=== PATIENT | male | born 1940 | race Caucasian/White ===

== ENCOUNTER 2016-12-19 13:29 | Outpatient (RCR) | payer MEDICARE ==
--- OUTSIDE RECORDS SUMMARY | 2016-09-22 11:02 | XMS REPORT | Continuity of Care Document ---
Author Author [facility] Organization [facility] Address Unknown Phone Unavailable Care Team Providers Care Energy Control Officer Name Role Phone EAN DUNN DO PCP Insurance Providers Payer Name Policy Number Subscriber Name Relationship [employer] Medicare [id number] Justino Jordan 20 Self / Same As Patient [employer] Supp [id number] Justino Jordan Self / Same As Patient Advance Directives Directive Response Recorded Date/Time Advance Directives Yes 01/16/15 10:30am Health Care Power of Warehouse Trainer Rom CROSS 01/16/15 10:30am Organ Donor Yes 01/16/15 10:30am Resuscitation Status Full Code 01/16/15 10:30am Problems Medical Problems Problem Onset Date Status Acute torn meniscus of knee Unknown Active Medications Medication Dose Route Sig Days/Qty Instructions Order Date Discontinued Date Status Sotalol Hcl 80 Mg PO TWICE A DAY 01/02/15 Active Potassium Chloride 10 Meq PO DAILY 01/02/15 Active Carvedilol 12.5 Mg PO TWICE A DAY TAKE 1/2 OF (25MG) TAB 01/02/15 Active Vit#96/Ferrous Fum/Fa 1 Each PO DAILY 01/02/15 Active Furosemide 80 Mg PO DAILY 01/02/15 Active Spironolactone 25 Mg PO DAILY 01/02/15 Active Enalapril Maleate 5 Mg PO DAILY 01/02/15 Active Polyethylene Glycol 1 Tbs PO DAILY 01/02/15 Active Budesonide/Formoterol Fumarate 2 Puff IH TWICE A DAY 01/02/15 Active Fish Oil/Dha/Epa 1,200 Mg PO DAILY 01/02/15 Active [Roman Med Sinus Rinse] 1 Spr NSEACH TWICE A DAY 01/02/15 Active Desonide 1 Gm TP TWICE A DAY 01/02/15 Active Saliva Stimulant Agents Comb.2 0.5 Inch MM FOUR TIMES DAILY PRN DRY MOUTH PRN DRY MOUTH 01/02/15 Active Timolol Maleate 1 Drop OS TWICE A DAY 01/02/15 Active Dabigatran Etexilate Mesylate 150 Mg PO TWICE A DAY 01/02/15 Active Aspirin 81 Mg PO BEDTIME 01/02/15 Active Simvastatin 40 Mg PO BEDTIME 01/02/15 Active Terazosin HCl 1 Mg PO BEDTIME 01/02/15 Active Nortriptyline Hcl 150 Mg PO BEDTIME TAKE 2 (75MG) TABS 01/02/15 Active Sildenafil Citrate 50 Mg PO EVERY OTHER NIGHT 01/02/15 Active Docusate Sodium 100 Mg PO BEDTIME 01/02/15 Active Albuterol Sulfate 0.63 Mg IH EVERY 4HRS PRN SHORTNESS OF BREATH PRN SOB 01/02/15 Active [Insulin Pump] Unit SC DIRECTED 3 AM 2.3 01/02/15 Active Hydrocodone/Acetaminophen 1 Tab PO Q4-6 PRN PAIN 40 Qty 01/16/15 Active Social History Social History Problem Response Recorded Date/Time Alcohol Use Denies Use 01/16/2015 10:30am Recreational Drug Use No 01/16/2015 10:30am Recent Foreign Travel No 01/16/2015 10:30am Smoking Status Former Smoker 01/16/2015 10:30am Do you dip or chew tobacco? No 01/16/2015 10:30am Query Response Start Date Stop Date Smoking Status Former Smoker 08/03/1975 Hospital Discharge Instructions No hospital discharge instructions. Plan of Care No plan of care. Functional Status No functional status results. Allergies, Adverse Reactions, Alerts Allergen Type Severity Reaction Status Last Updated No Known Drug Allergies Active 01/02/15 Immunizations Name Given Type Date of Pneumonia Vaccine 08/05/10 Historical Vital Signs Acute Vital Signs Vital Response Date/Time Temperature (Fahrenheit) 96.7 degrees F (97.6 - 99.5) Temperature (Calculated Celsius) 35.62675 degrees C (36.4 - 37.5) Temperature Source Temporal Pulse Rate (adult) 67 bpm (60 - 90) Respiratory Rate 18 bpm (12 - 24) O2 Sat by Pulse Oximetry 97 % (88 - 100) Blood Pressure 125/60 mm Hg Blood Pressure 125/60 mm Hg Height (Feet) 5 feet Height (Inches) 8.00 inches Height (Calculated Centimeters) 172.313783 cm Weight (Pounds) 258 pounds Weight (Ounces) 0.0 oz Weight (Calculated Grams) 409096.833 gm Weight (Calculated Kilograms) 117.205645 kilograms Calculated BMI 39.22 Results Laboratory Results Test Name Result Units Flags Reference Collection Date/Time Result Date/ Time Comments Glucometer 233 MG/DL H 70-110 01/16/2015 1:29pm 01/16/2015 1:36pm White Blood Count 5.4 10^3/uL 4.3-11.0 01/02/2015 10:08am 01/02/2015 10 :27am Red Blood Count 4.88 10^6/uL 4.35-5.85 01/02/2015 10:0801/02/2015 10 :27am Hemoglobin 14.3 G/DL 13.3-17.7 01/02/2015 10:0801/02/2015 10:27am Hematocrit 42 % 40-54 01/02/2015 10:0801/02/2015 10:27am Mean Corpuscular Volume 87 FL 80-99 01/02/2015 10:0801/02/2015 10: 27am Mean Corpuscular Hemoglobin 29 PG 25-34 01/02/2015 10:08am 01/02/2015 10:27am Mean Corpuscular Hemoglobin Concent 34 G/DL 32-36 01/02/2015 10:08 10:27am Red Cell Distribution Width 13.4 % 10.0-14.5 01/02/2015 10:08am 2014 10:27am Platelet Count 217 10^3/uL 130-400 01/02/2015 10:01/02/2015 10: 27am Mean Platelet Volume 9.9 FL 7.4-10.4 01/02/2015 10:01/02/2015 10: 27am Neutrophils (%) (Auto) 58 % 42-75 01/02/2015 10:01/02/2015 10: 27am Lymphocytes (%) (Auto) 22 % 12-44 01/02/2015 10:01/02/2015 10: 27am Monocytes (%) (Auto) 15 % H 0-12 01/02/2015 10:01/02/2015 10:27am Eosinophils (%) (Auto) 5 % 0-10 01/02/2015 10:01/02/2015 10:27am Basophils (%) (Auto) 1 % 0-10 01/02/2015 10:01/02/2015 10:27am Neutrophils # (Auto) 3.1 X 10^3 1.8-7.8 01/02/2015 10:01/02/2015 10:27am Lymphocytes # (Auto) 1.2 X 10^3 1.0-4.0 01/02/2015 10:01/02/2015 10:27am Monocytes # (Auto) 0.8 X 10^3 0.0-1.0 01/02/2015 10:01/02/2015 10: 27am Eosinophils # (Auto) 0.3 10^3/uL 0.0-0.3 01/02/2015 10:01/02/2015 10:27am Basophils # (Auto) 0.0 10^3/uL 0.0-0.1 01/02/2015 10:01/02/2015 10 :27am Sodium Level 136 MMOL/L 135-145 01/02/2015 10:01/02/2015 10:46am Potassium Level 4.0 MMOL/L 3.6-5.0 01/02/2015 10:01/02/2015 10: 46am Chloride Level 100 MMOL/L 98-107 01/02/2015 10:01/02/2015 10:46am Carbon Dioxide Level 27 MMOL/L 21-32 01/02/2015 10:01/02/2015 10: 46am Blood Urea Nitrogen 17 MG/DL 7-18 01/02/2015 10:08am 01/02/2015 10: 46am Creatinine 1.25 MG/DL 0.60-1.30 01/02/2015 10:08am 01/02/2015 10:46am BUN/Creatinine Ratio 14 01/02/2015 10:08am 01/02/2015 10:46am Estimat Glomerular Filtration Rate 57 01/02/2015 10:08am 2014 10:46am GFR INTERPRETIVE DATA UNITS FOR ESTIMATED GFR (eGFR): mL/min/1.73 M2 REFERENCE RANGE FOR ESTIMATED GFR (eGFR) eGFR NORMAL eGFR >60 MODERATELY DECREASED eGFR 30-59 SEVERLY DECREASED eGFR 15-29 KIDNEY FAILURE <15 (OR DIALYSIS) Glucose Level 227 MG/DL H 70-105 01/02/2015 10:08am 01/02/2015 10:46am Calcium Level 9.8 MG/DL 8.5-10.1 01/02/2015 10:08am 01/02/2015 10:46am Procedures Procedure Status Date Provider(s) Arthroscopic partial medial meniscectomy completed 01/16/15 KYM RODRIGUEZ DO Encounters Encounter Location Date/Time Registered [facility] 01/16/15 10:03am Registered Clinic [facility] 01/02/15 9:32am Recent Diagnosis Acute torn meniscus of knee
[~2016-12-19 13:29] MED LIST: ALBU0.632 IH; ASPI-587 PO; BUDE10.22 IH; CRV25T PO; DABI150C2 PO; DCS100C PO; DESO15CR TP; ENAL5TAB PO; FISH1CAP15 PO; FURO40TA PO; HYDR-508 PO; INSULIN PUMP SC; NORT75CA PO; POLY119P PO; POTA10CA43 PO; PREN1TAB25 PO; SALI44.3 MM; SILD100T PO; SIMV80TA3 PO; SOTA80TA PO; SPRN25T PO; TERA1CAP3 PO; TML5OP2.5 OS; [UNRECOGNIZED DRUG - SUPPLY] NSEACH
== END 2016-12-21 | disposition home or self-care (01) ==
LOC: CR 13:29
PROVIDERS: ATTEND Internal Medicine Interventional Cardiology
DX: Z48.812 Encounter for surgical aftercare following surgery on the circulatory system (principal); Z95.5 Presence of coronary angioplasty implant and graft
CPT/HCPCS: 82962; 93798

== ENCOUNTER 2017-01-14 13:09 | Outpatient (RCR) | payer MEDICARE | END 2017-01-14 14:00 | disposition home or self-care (01) | LOC: CR 13:09 | PROVIDERS: ATTEND Internal Medicine Interventional Cardiology | DX: Z48.812 Encounter for surgical aftercare following surgery on the circulatory system (principal); Z95.5 Presence of coronary angioplasty implant and graft | CPT/HCPCS: 93798 ==

== ENCOUNTER → 2018-02-02 | Outpatient (CLI) | payer MEDICARE ==
[2018-02-02 13:46] LABS: BASOPHILS # (AUTO) 0.1 10^3/uL (0.0-0.1); BASOPHILS % (AUTO) 1 % (0-10); EOSINOPHILS # (AUTO) 0.4 10^3/uL (0.0-0.3); EOSINOPHILS % (AUTO) 8 % (0-10); HEMATOCRIT 29 % (40-54); HEMOGLOBIN 9.1 G/DL (13.3-17.7); LYMPHOCYTES # (AUTO) 1.1 X 10^3 (1.0-4.0); LYMPHOCYTES % (AUTO) 25 % (12-44); MEAN CORPUSCULAR HEMOGLOBIN 29 PG (25-34); MEAN CORPUSCULAR HGB CONC 32 G/DL (32-36); MEAN CORPUSCULAR VOLUME 92 FL (80-99); MEAN PLATELET VOLUME 8.8 FL (7.4-10.4); MONOCYTES # (AUTO) 0.7 X 10^3 (0.0-1.0); MONOCYTES % (AUTO) 16 % (0-12); NEUTROPHILS # (AUTO) 2.3 X 10^3 (1.8-7.8); NEUTROPHILS % (AUTO) 51 % (42-75); PLATELET COUNT 261 10^3/uL (130-400); RED CELL DISTRIBUTION WIDTH 15.2 % (10.0-14.5); WHITE BLOOD COUNT 4.5 10^3/uL (4.3-11.0)
== END ==
LOC: LAB 13:32
PROVIDERS: ATTEND Internal Medicine
DX: I10 Essential (primary) hypertension (principal); E11.9 Type 2 diabetes mellitus without complications; E03.9 Hypothyroidism, unspecified
CPT/HCPCS: 36415; 85025

== ENCOUNTER → 2020-04-16 | Outpatient (CLI) | payer MEDICARE ==
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
== END ==
LOC: RAD 04-06 12:35
PROVIDERS: ATTEND Physician Assistant
DX: M47.812 Spondylosis without myelopathy or radiculopathy, cervical region (principal); M48.02 Spinal stenosis, cervical region; M25.78 Osteophyte, vertebrae; M47.817 Spondylosis without myelopathy or radiculopathy, lumbosacral region; M48.07 Spinal stenosis, lumbosacral region; M47.815 Spondylosis without myelopathy or radiculopathy, thoracolumbar region; M51.36 Other intervertebral disc degeneration, lumbar region
CPT/HCPCS: 72141; 72148

== ENCOUNTER → 2021-07-11 | Outpatient (CLI) | payer MEDICARE ==
--- NOTE | 2021-07-11 12:28 | Diagnostic Imaging Report ---
Indication: Cough. Coronary artery disease. COMPARISON: None. FINDINGS: Frontal and lateral views the chest demonstrate clear lungs bilaterally. The heart size is normal. There is no pneumothorax. Sternal wires midline. Osseous structures are age-appropriate IMPRESSION: Negative chest. Dictated by: Dictated on workstation # [id number]
== END ==
LOC: RAD
PROVIDERS: ATTEND Internal Medicine
DX: I25.10 Atherosclerotic heart disease of native coronary artery without angina pectoris (principal)
CPT/HCPCS: 71046

== ENCOUNTER 2022-02-19 17:25 | Emergency (ER) | payer MEDICARE ==
[~2022-02-19] VITALS: Ht 177.8 cm; Wt 92.9 kg
[2022-02-19] MEDS ORDERED: NS IV 500 ML 500 ML IV STA (17:27)
[2022-02-19] MEDS ORDERED: TETANUS,DIPTH,PERTUSS P/F (BOOSTRIX) 0.5 ML VIAL IM ONE (17:30)
[2022-02-19] MEDS ORDERED: ACETAMINOPHEN 500 MG TAB (TYLENOL) PO ONE (17:30)
--- NOTE | 2022-02-19 17:37 | ED Fall/Injury ---
General Chief Complaint: Trauma-Non Activation Stated Complaint: FALL Source: patient, EMS Exam Limitations: no limitations (DAVID SAENZ MD) History of Present Illness Date Seen by Provider: Feb 19, 2022 Time Seen by Provider: 17:20 Initial Comments 81-year-old male with past history of A. fib on Pradaxa, CAD status post CABG, CHF, hypertension, hypothyroidism, diabetes, and CKD stage IV coming in via EMS from home after patient suffered multiple falls today. Most recent one occurred just prior to arrival. He says he is just losing his balance. Most recent 1 he fell forward and hit his face on the concrete. He says he has not passed out during any of these, denies any chest pain, shortness of breath, abdominal pain, palpitations, nausea, vomiting, diarrhea, fever, chills, focal weakness or numbness, vision changes, or any other concerns. Last tetanus around 8 years ago. He says he feels like he needs a walker and he would be fine. He has suffered from falls in the past as well. He did take his Pradaxa this morning. He is otherwise denying any other acute complaints. Patient later added that he recently took a trip to [place] in January, had an HI at that time, had a GI bleed requiring a colonoscopy with them cauterizing an area the patient states, and he received 2 units of blood. He says he is severely anemic still, and received IV iron on Thursday. He says he has had some dark stools that are mixed between black and brown. EMS reports initial blood pressure around 110 systolic, but later on was 70 systolic prior to arrival. They report he has scattered abrasions and skin tears mostly to his nose and right elbow. (DAVID SAENZ MD) Initial Comments Agree with H & P (MICKEY ESTRADA MD) Allergies and Home Medications Allergies Coded Allergies: No Known Drug Allergies (Unverified , 01/02/15) Patient Home Medication List Home Medication List Reviewed: Yes (DAVID SAENZ MD) Home Medication List Reviewed: Yes (MICKEY ESTRADA MD) Albuterol Sulfate (Albuterol Sulfate) 0.63 Mg/3 Ml Vial.neb, 0.63 MG IH Q4H PRN for SHORTNESS OF BREATH, (Reported) Entered as Reported by: MICKY WAYNE on 01/02/15 1039 Aspirin (Aspir 81) 81 Mg Tablet.dr, 81 MG PO HS, (Reported) Entered as Reported by: MICKY WAYNE on 01/02/15 1039 Budesonide/Formoterol Fumarate (Symbicort 80-4.5 Mcg Inhaler) 10.2 Gm Hfa.aer.ad, 2 PUFF IH BID, (Reported) Entered as Reported by: MICKY WAYNE on 01/02/15 1039 Carvedilol (Coreg) 25 Mg Tablet, 12.5 MG PO BID, (Reported) Entered as Reported by: MICKY WAYNE on 01/02/15 1039 Dabigatran Etexilate Mesylate (Pradaxa) 150 Mg Capsule, 150 MG PO BID, (Reported) Entered as Reported by: MICKY WAYNE on 01/02/15 1039 Desonide (Desonide) 15 Gm Cream.gm., 1 GM TP BID, (Reported) Entered as Reported by: MICKY WAYNE on 01/02/15 1039 Docusate Sodium (Colace) 100 Mg Cap, 100 MG PO HS, (Reported) Entered as Reported by: MICKY WAYNE on 01/02/15 1039 Enalapril Maleate (Enalapril Maleate) 5 Mg Tablet, 5 MG PO DAILY, (Reported) Entered as Reported by: MICKY WAYNE on 01/02/15 1039 Fish Oil/Dha/Epa (Fish Oil 1,200 Mg Fish Oil) 1 Each Capsule, 1,200 MG PO DAILY, (Reported) Entered as Reported by: MICKY WAYNE on 01/02/15 1039 Furosemide (Lasix) 40 Mg Tablet, 80 MG PO DAILY, (Reported) Entered as Reported by: MICKY WAYNE on 01/02/15 1039 Hydrocodone/Acetaminophen ([place] 7.5-325 Tablet) 1 Each Tablet, 1 TAB PO Q4-6 PRN for PAIN Prescribed by: EMBER WALTERS on 01/16/15 1450 Nortriptyline Hcl (Nortriptyline Hcl) 75 Mg Capsule, 150 MG PO HS, (Reported) Entered as Reported by: MICKY WAYNE on 01/02/15 1039 Polyethylene Glycol (Miralax Btl) 119 Gm Btl, 1 TBS PO DAILY, (Reported) Entered as Reported by: MICKY WAYNE on 01/02/15 103 Potassium Chloride (Potassium Chloride) 10 Meq Capsule.sa, 10 MEQ PO DAILY, (Reported) Entered as Reported by: MICKY WAYNE on 01/02/15 103 Vit#96/Ferrous Fum/Fa ( Tablet) 1 Each Tablet, 1 EACH PO DAILY, (Reported) Entered as Reported by: MICKY WAYNE on 01/02/15 103 Saliva Stimulant Agents Comb.2 (Biotene Oralbalance) 45 Ml Liquid, 0.5 INCH MM QID PRN for DRY MOUTH, (Reported) Entered as Reported by: MICKY WAYNE on 01/02/15 103 Sildenafil Citrate (Viagra) 100 Mg Tablet, 50 MG PO EVERY OTHER NIGHT, (Reported) Entered as Reported by: MICKY WAYNE on 01/02/15 103 Simvastatin (Simvastatin) 80 Mg Tablet, 40 MG PO HS, (Reported) Entered as Reported by: MICKY WAYNE on 01/02/15 103 Sotalol Hcl (Sotalol Hcl) 80 Mg Tablet, 80 MG PO BID, (Reported) Entered as Reported by: MICKY WAYNE on 01/02/15 0948 Spironolactone (Aldactone) 25 Mg Tab, 25 MG PO DAILY, (Reported) Entered as Reported by: MICKY WAYNE on 01/02/15 103 Terazosin Hcl (Hytrin 1 Mg) 1 Mg Capsule, 1 MG PO HS, (Reported) Entered as Reported by: MICKY WAYNE on 01/02/15 103 Timolol Maleate (Timoptic 0.5%) 5 Ml Soln, 1 DROP OS BID, (Reported) Entered as Reported by: MICKY WAYNE on 01/02/15 103 [Insulin Pump] , UNIT SC UD, (Reported) Entered as Reported by: MICKY WAYNE on 01/02/15 103 [Roman Med Sinus Rinse] , 1 SPR NSEACH BID, (Reported) Entered as Reported by: MICKY WAYNE on 01/02/15 1039 Review of Systems Review of Systems Constitutional: No fever Eyes: Denies Blurred Vision Ears, Nose, Mouth, Throat: epistaxis Respiratory: no symptoms reported; No dyspnea on exertion, No short of breath Cardiovascular: No chest pain Gastrointestinal: No abdominal pain, No diarrhea, No nausea, No vomiting Genitourinary: no symptoms reported Musculoskeletal: no symptoms reported Skin: see HPI Psychiatric/Neurological: No Symptoms Reported (DAVID SAENZ MD) All Other Systems Reviewed Negative Unless Noted: Yes (DAVID SAENZ MD) Past Sjecqnj-Kmxjdr-Lhwips Hx Patient Social History Tobacco Use?: No Smoking Status: Former Smoker Substance use?: No Alcohol Use?: No Pt feels they are or have been: No (DAVID SAENZ MD) Immunizations Up To Date Influenza Vaccine Up-to-Date: Yes; Up-to-Date (DAVID SAENZ MD) Past Medical History Surgeries: Yes CABG, Prostatectomy COPD Reproductive Disorders: No Prostate Problems Chronic Constipation Arthritis Diabetes, Insulin dep Loss of Vision: Bilateral Hearing Impairment: Bilateral Hearing Aide Prostate (DAVID SAENZ MD) Physical Exam Vital Signs Vital Signs - First Documented 02/19/22 17:25 Temp 37.0 Pulse 72 Resp 14 B/P (MAP) 109/49 (69) Pulse Ox 95 O2 Delivery Room Air (MICKEY ESTRADA MD) Vital Signs Capillary Refill : (DAVID SAENZ MD) Height, Weight, BMI Height: 5'8.00" Weight: 258lbs. 0.0oz. 117.144043ch; BMI Method: General Appearance: WD/WN, no apparent distress HEENT: PERRL/EOMI, pharynx normal, other (Keep abrasions to his nose with parts of the skin missing, nothing amenable to suturing) Neck: non-tender, full range of motion, supple, normal inspection, other (Patient arrived outside of c-collar moving neck around) Cardiovascular: regular rate, rhythm, no edema, no murmur Respiratory: chest non-tender, no respiratory distress, no accessory muscle use, crackles Gastrointestinal: normal bowel sounds, non tender, soft; No distended, No guarding, No rebound Rectal: other (dark brown stool) Back: normal inspection, no CVA tenderness, no vertebral tenderness Extremities: normal range of motion, non-tender, no pedal edema, no calf tenderness, normal capillary refill, other (Abrasions to the bilateral knees and right elbow but is skin tear to the right forearm) 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3-17.7 g/dL Hematocrit 35 L 40-54 % Mean Corpuscular Volume 91 80-99 fL Mean Corpuscular Hemoglobin 28 25-34 pg Mean Corpuscular Hemoglobin Concent 31 L 32-36 g/dL Red Cell Distribution Width 15.7 H 10.0-14.5 % Platelet Count 254 130-400 10^3/uL Mean Platelet Volume 9.2 9.0-12.2 fL Immature Granulocyte % (Auto) 0 % Neutrophils (%) (Auto) 65 42-75 % Lymphocytes (%) (Auto) 19 12-44 % Monocytes (%) (Auto) 14 H 0-12 % Eosinophils (%) (Auto) 1 0-10 % Basophils (%) (Auto) 1 0-10 % Neutrophils # (Auto) 3.9 1.8-7.8 10^3/uL Lymphocytes # (Auto) 1.2 1.0-4.0 10^3/uL Monocytes # (Auto) 0.8 0.0-1.0 10^3/uL Eosinophils # (Auto) 0.1 0.0-0.3 10^3/uL Basophils # (Auto) 0.1 0.0-0.1 10^3/uL Immature Granulocyte # (Auto) 0.0 0.0-0.1 10^3/uL Prothrombin Time 19.3 H 12.2-14.7 SEC INR Comment 1.6 H 0.8-1.4 Activated Partial Thromboplast Time 55 H 24-35 SEC Sodium Level 141 135-145 MMOL/L Potassium Level 5.2 H 3.6-5.0 MMOL/L Chloride Level 103 98-107 MMOL/L Carbon Dioxide Level 27 21-32 MMOL/L Anion Gap 11 5-14 MMOL/L Blood Urea Nitrogen 20 H 7-18 MG/DL Creatinine 2.10 H 0.60-1.30 MG/DL Estimat Glomerular Filtration Rate 31 BUN/Creatinine Ratio 10 Glucose Level 127 H 70-105 MG/DL Lactic Acid Level 1.20 0.50-2.00 MMOL/L Calcium Level 9.6 8.5-10.1 MG/DL Corrected Calcium 9.8 8.5-10.1 MG/DL Magnesium Level 2.4 1.6-2.4 MG/DL Total Bilirubin 0.3 0.1-1.0 MG/DL Aspartate Amino Transf (AST/SGOT) 21 5-34 U/L Alanine Aminotransferase (ALT/SGPT) 13 0-55 U/L Alkaline Phosphatase 75 40-136 U/L Troponin I < 0.028 <0.028 NG/ML B-Type Natriuretic Peptide 81.4 <100.0 PG/ML Total Protein 6.7 6.4-8.2 GM/DL Albumin 3.7 3.2-4.5 GM/DL Urine Color YELLOW Urine Clarity CLEAR Urine pH 7.5 5-9 Urine Specific [place] 1.010 L 1.016-1.022 Urine Protein NEGATIVE NEGATIVE Urine Glucose (UA) NEGATIVE NEGATIVE Urine Ketones NEGATIVE NEGATIVE Urine Nitrite NEGATIVE NEGATIVE Urine Bilirubin NEGATIVE NEGATIVE Urine Urobilinogen 0.2 < = 1.0 MG/DL Urine Leukocyte Esterase NEGATIVE NEGATIVE Urine RBC (Auto) NEGATIVE NEGATIVE Urine RBC NONE /HPF Urine WBC RARE /HPF Urine Squamous Epithelial Cells 0-2 /HPF Urine Crystals NONE /LPF Urine Bacteria TRACE /HPF Urine Casts PRESENT /LPF Urine Hyaline Casts RARE /LPF Urine Mucus NEGATIVE /LPF Urine Culture Indicated NO (MICKEY ESTRADA MD) Medications Given in ED Current Medications Medications Dose Ordered Sig/Glynn Route Start Time Stop Time Status Last Admin Dose Admin Acetaminophen 1,000 mg ONCE ONCE PO 02/19/22 17:30 02/19/22 17:32 DC 02/19/22 18:07 1,000 MG Diphtheria/ Tetanus/Acell Pertussis 0.5 ml ONCE ONCE IM 02/19/22 17:30 02/19/22 17:32 DC 02/19/22 18:10 0.5 ML Pantoprazole 40 mg ONCE ONCE IV 02/19/22 18:00 02/19/22 18:01 DC 02/19/22 18:07 40 MG (MICKEY ESTRADA MD) Vital Signs/I&O 02/19/22 17:25 Temp 37.0 Pulse 72 Resp 14 B/P (MAP) 109/49 (69) Pulse Ox 95 O2 Delivery Room Air (MICKEY ESTRADA MD) Progress Progress Note : Progress Note 81-year-old male with above history coming in after multiple falls in which he lost his balance falling forward. Hit his head multiple times. Is on blood t hinnIdiro. GCS 15, vital stable, ABCs intact on presentation. Physical exam with scattered abrasions and skin tears. An IV was placed and basic labs were obtained including cardiac biomarkers, EKG obtained as well. CT head and cervical spine ordered as well as chest x-ray. The patient did have 1 blood pressure here in the 80s systolic, repeat blood pressure 1 back up over 100. Given his history of heart failure and crackles on his lung exam, I do not believe giving him a large amount of IV fluids would be helpful for him. We did give him a gentle bolus of 500 cc to see if that improves his pressure and symptoms. His work-up is pending at this time and the patient will be signed out to Dr. Estrada. If his blood pressure improves, labs are unremarkable, and imaging does not show any significant concerns, its potential he could go home. Otherwise if his blood pressure goes back down again and does not improve, he likely will need to stay in the hospital (DAVID SAENZ MD) Progress Note : Progress Note S/O from Dr. Saenz: 1. NEAR SYNCOPE/ FALLS: ORTHOSTATIC HYPOTENSION - CT HEAD unremarkable - CXR: unchanged - CBC: Hb is 10.7 - Troponin and BNP normal - Orthostatic are positive - Advised to get up slowly from lying and sitting position, drink water prior to getting up, etc. Advised to use walker - Advised to follow up with PCP and Cardiology within the next 3 days -The patient was seen in the ED, and treated appropriately to presentation at a specific point in time. Patient is informed that there is a possibility that disease and illness can evolve and change in acuity rapidly or slowly after patient is discharged from the ER. Precautionary advice given to the patient for immediate return to ER if symptoms worsen or do not resolve, and to seek emergency care sooner rather than later. Pt also advised on the importance of P CP follow up and compliance with management and follow up plan with PCP and/or specialist, as this is part of the management plan. Pt verbally expressed understanding. 2. HYPERKALEMIA: - s. K is 5.2 - Hold potassium supplements for the next 2 days and repeat labs in PCP office to recheck potassium level 3. CKD Stage 3: - s. creatinine is 2.10 and BUN is 20 (MICKEY ESTRADA MD) Initial ECG Impression Date: Feb 19, 2022 Initial ECG Impression Time: 17:44 Initial ECG Rate: 66 Initial ECG Rhythm: Normal Sinus Comment Wide QRS tach with a duration of 126, left axis deviation, no significant ST changes or T wave abnormalities (DAVID SAENZ MD) Diagnostic Imaging Diagonstic Imaging: Xray, CT Plain Films/CT/US/NM/MRI: chest, head Comments [facility], [place] NAME: JUSTINO JORDAN [facility] REC#: [id number] PT STATUS: REG ER : 1940 PHYSICIAN: DAVID SAENZ MD ADMIT DATE: 02/19/22/ER Draft Date of Exam:02/19/22 CT HEAD/CERVICAL SPINE WO EXAMINATION: CT head and CT cervical spine without contrast. TECHNIQUE: Multiple contiguous axial images were obtained through the brain and cervical spine without the use of intravenous contrast. Sagittal and coronal reformations through the cervical spine were then performed. All CT scans use one or more of the following dose optimizing techniques: automated exposure control, MA and/or KvP adjustment based on patient size and exam type or iterative reconstruction. HISTORY: Head and neck injury. COMPARISON: None available. FINDINGS: The anaya-white matter differentiation is normal. No mass effect or midline shift. The ventricles are normal in size and configuration. Basilar cisterns are patent. There are no intra- or extra-axial fluid collections. There is no intracranial hemorrhage. The orbits are normal. Paranasal sinuses are normal. Mastoid air cells are clear. No soft tissue abnormality is seen. No osseus lesions or fractures are seen. The alignment of the cervical spine is normal. No fracture is seen. Vertebral body heights are normal. The craniocervical junction is normal. There is mild degenerative disease in the cervical spine. There is no spinal canal stenosis. No soft tissue abnormality is seen in the neck. Limited views of the superior thorax are normal. IMPRESSION: 1. No acute intracranial abnormality. 2. No cervical spine fracture. Dictated on workstation # [id number] Dict: 02/19/221905 Trans: 02/19/221912 CVB [id number] Interpreted by: ANDREY WAYNE MD Electronically signed by: [facility], [place] NAME: JUSTINO JORDAN [facility] REC#: [id number] PT STATUS: REG ER : 1940 PHYSICIAN: DAVID SAENZ MD ADMIT DATE: 02/19/22/ER Draft Date of Exam:02/19/22 CHEST 1 VIEW, AP/PA ONLY Indication: Loss of balance. Findings: Sternal wires midline. The lungs are clear. There is no failure, effusion or pneumothorax. Impression: No acute-appearing abnormality, no change from prior dated 07/11/2021. Dictated on workstation # [id number] Dict: 02/19/22 184 Trans: 02/19/22 184 CVB [id number] Interpreted by: EAN GAVIN Electronically signed by: (MICKEY ESTRADA MD) Focused Exam Lactate Level 02/19/22 18:00: Lactic Acid Level 1.20 (MICKEY ESTRADA MD) Lactic Acid Level Laboratory Tests Test 02/19/22 18:00 Lactic Acid Level 1.20 MMOL/L (0.50-2.00) (MICKEY ESTRADA MD) Departure Impression Primary Impression: Orthostatic hypotension Additional Impressions: Fall Qualified Codes: W19.XXXA - Unspecified fall, initial encounter Skin tear Hyperkalemia CKD (chronic kidney disease) Qualified Codes: N18.32 - Chronic kidney disease, stage 3b Disposition: 01 HOME, SELF-CARE Condition: Improved Departure-Patient Inst. Referrals: EAN DUNN DO (PCP/Family) Primary Care Physician Patient Instructions: Orthostatic Hypotension, Hyperkalemia, Preventing Falls ED, Orthostatic Hypotension (DC) Add. Discharge Instructions: - Advised to get up slowly from lying and sitting position, drink water prior to getting up, etc. Advised to use walker - Advised to follow up with PCP and Cardiology within the next 3 days - Hold potassium supplements for the next 2 days and repeat labs in PCP office to recheck potassium level - Return to ER if symptoms worsen All discharge instructions reviewed with patient and/or family. Voiced understanding. DAVID SAENZ MD Feb 19, 2022 17:37 MICKEY ESTRADA MD Feb 19, 2022 19:04
[2022-02-19] MEDS ORDERED: PANTOPRAZOLE 40 MG (PROTONIX) VIAL IV ONE (18:00)
[2022-02-19 18:13] LABS: BASOPHILS # (AUTO) 0.1 10^3/uL (0.0-0.1); BASOPHILS % (AUTO) 1 % (0-10); EOSINOPHILS # (AUTO) 0.1 10^3/uL (0.0-0.3); EOSINOPHILS % (AUTO) 1 % (0-10); HEMATOCRIT 35 % (40-54); HEMOGLOBIN 10.7 g/dL (13.3-17.7); LYMPHOCYTES # (AUTO) 1.2 10^3/uL (1.0-4.0); LYMPHOCYTES % (AUTO) 19 % (12-44); MEAN CORPUSCULAR HEMOGLOBIN 28 pg (25-34); MEAN CORPUSCULAR HGB CONC 31 g/dL (32-36); MEAN CORPUSCULAR VOLUME 91 fL (80-99); MEAN PLATELET VOLUME 9.2 fL (9.0-12.2); MONOCYTES # (AUTO) 0.8 10^3/uL (0.0-1.0); MONOCYTES % (AUTO) 14 % (0-12); NEUTROPHILS # (AUTO) 3.9 10^3/uL (1.8-7.8); NEUTROPHILS % (AUTO) 65 % (42-75); PLATELET COUNT 254 10^3/uL (130-400); WHITE BLOOD COUNT 6.1 10^3/uL (4.3-11.0)
[2022-02-19 18:19] LABS: ALBUMIN 3.7 GM/DL (3.2-4.5); CHLORIDE 103 MMOL/L (98-107); POTASSIUM 5.2 MMOL/L (3.6-5.0); SODIUM 141 MMOL/L (135-145)
[2022-02-19 18:20] LABS: CALCIUM 9.6 MG/DL (8.5-10.1)
[2022-02-19 18:21] LABS: GLUCOSE 127 MG/DL (70-105)
[2022-02-19 18:21] LABS: BILIRUBIN,URINE NEGATIVE (NEGATIVE); CLARITY,URINE CLEAR; COLOR,URINE YELLOW; GLUCOSE, URINE (UA) NEGATIVE (NEGATIVE); KETONES,URINE NEGATIVE (NEGATIVE); LEUKOCYTE ESTERASE ,URINE NEGATIVE (NEGATIVE); NITRITE,URINE NEGATIVE (NEGATIVE); PH,URINE 7.5 (5-9); PROTEIN,URINE NEGATIVE (NEGATIVE)
[2022-02-19 18:22] LABS: TOTAL PROTEIN 6.7 GM/DL (6.4-8.2)
[2022-02-19 18:23] LABS: BILIRUBIN,TOTAL 0.3 MG/DL (0.1-1.0); CARBON DIOXIDE 27 MMOL/L (21-32)
[2022-02-19 18:25] LABS: ALKALINE PHOSPHATASE 75 U/L (40-136); GFR ESTIMATED 31
[2022-02-19 18:26] LABS: BUN/CREATININE RATIO 10; INR 1.6 (0.8-1.4); PROTHROMBIN TIME PATIENT 19.3 SEC (12.2-14.7)
[2022-02-19 18:28] LABS: ALANINE AMINOTRANSFERASE 13 U/L (0-55); MAGNESIUM 2.4 MG/DL (1.6-2.4)
--- NOTE | 2022-02-19 18:48 | Diagnostic Imaging Report ---
Indication: Loss of balance. Findings: Sternal wires midline. The lungs are clear. There is no failure, effusion or pneumothorax. Impression: No acute-appearing abnormality, no change from prior dated 07/11/2021. Dictated by: Dictated on workstation # [id number]
[2022-02-19 18:50] LABS: BACTERIA,URINE TRACE /HPF; HYALINE CASTS, URINE RARE /LPF; SQUAMOUS EPITHELIAL CELL,UR 0-2 /HPF; WBC,URINE RARE /HPF
--- NOTE | 2022-02-19 19:13 | Diagnostic Imaging Report ---
EXAMINATION: CT head and CT cervical spine without contrast. TECHNIQUE: Multiple contiguous axial images were obtained through the brain and cervical spine without the use of intravenous contrast. Sagittal and coronal reformations through the cervical spine were then performed. All CT scans use one or more of the following dose optimizing techniques: automated exposure control, MA and/or KvP adjustment based on patient size and exam type or iterative reconstruction. HISTORY: Head and neck injury. COMPARISON: None available. FINDINGS: The anaya-white matter differentiation is normal. No mass effect or midline shift. The ventricles are normal in size and configuration. Basilar cisterns are patent. There are no intra- or extra-axial fluid collections. There is no intracranial hemorrhage. The orbits are normal. Paranasal sinuses are normal. Mastoid air cells are clear. No soft tissue abnormality is seen. No osseus lesions or fractures are seen. The alignment of the cervical spine is normal. No fracture is seen. Vertebral body heights are normal. The craniocervical junction is normal. There is mild degenerative disease in the cervical spine. There is no spinal canal stenosis. No soft tissue abnormality is seen in the neck. Limited views of the superior thorax are normal. IMPRESSION: 1. No acute intracranial abnormality. 2. No cervical spine fracture. Dictated by: Dictated on workstation # [id number]
[2022-02-19] MEDS ORDERED: SODIUM POLYSTYRENE POWDER 15 GM BOTTLE PO ONE (19:30)
[2022-02-19 20:15] VITALS: BP 109/49
== END 2022-02-19 20:14 | disposition home or self-care (01) ==
LOC: EDUNIT# 17:25 → ER 17:26
DX: S51.811A Laceration without foreign body of right forearm, initial encounter (principal); I95.1 Orthostatic hypotension; E87.5 Hyperkalemia; E11.22 Type 2 diabetes mellitus with diabetic chronic kidney disease; I13.0 Hypertensive heart and chronic kidney disease with heart failure and stage 1 through stage 4 chronic kidney disease, or unspecified chronic kidney disease; N18.4 Chronic kidney disease, stage 4 (severe); I50.9 Heart failure, unspecified; S00.31XA Abrasion of nose, initial encounter; S80.212A Abrasion, left knee, initial encounter; S80.211A Abrasion, right knee, initial encounter; S50.311A Abrasion of right elbow, initial encounter; I48.91 Unspecified atrial fibrillation; I25.10 Atherosclerotic heart disease of native coronary artery without angina pectoris; Z87.891 Personal history of nicotine dependence; Z95.1 Presence of aortocoronary bypass graft; Z23 Encounter for immunization; Z79.4 Long term (current) use of insulin; Z79.01 Long term (current) use of anticoagulants; W01.198A Fall on same level from slipping, tripping and stumbling with subsequent striking against other object, initial encounter
CPT/HCPCS: 36415; 70450; 71045; 72125; 80053; 81000; 83605; 83735; 83880; 84484; 85025; 85610; 85730; 86850; 86900; 86901; 90715; 93005; 93041

== ENCOUNTER 2022-10-12 15:05 | Emergency (ER) | payer MEDICARE ==
[~2022-10-12] VITALS: Ht 177 cm; Wt 95.0 kg
[2022-10-12] MEDS ORDERED: ETOMIDATE IV SOLN 20 MG/10 ML VIAL IV ONE (15:18)
[2022-10-12] MEDS ORDERED: CATHETER FLUSH 10 ML SYR IVP ONE (15:18)
[2022-10-12] MEDS ORDERED: ATROPINE INJECTION 1 MG/10 ML SYR (ABBOTT) INJ ONE (15:18)
[2022-10-12] MEDS ORDERED: ROCURONIUM 50 MG/5 ML (ZEMURON) VIAL IV ONE (15:18)
[2022-10-12] MEDS ORDERED: CALCIUM CHLORIDE 1 GM/10 ML (IMS) SYR INJ ONE ×2 (15:18→15:30)
[2022-10-12] MEDS ORDERED: EPINEPHrine 0.1 MG/ML 10 ML (HOSPIRA) SYR INJ ONE (15:18)
[2022-10-12] MEDS ORDERED: inSUlin (REGULAR) HUMAN 1 UNIT/0.01 ML (CHARGE PER UNIT) SC STA (15:29)
[2022-10-12] MEDS ORDERED: inSUlin (REGULAR) HUMAN 1 UNIT/0.01 ML (CHARGE PER UNIT) IV STA (15:29)
--- NOTE | 2022-10-12 15:29 | ED General ---
General Chief Complaint: General Problems/Pain Stated Complaint: SOA Source of Information: Patient Exam Limitations: Physical Impairments History of Present Illness Date Seen by Provider: Oct 12, 2022 Time Seen by Provider: 15:10 Initial Comments Patient is an ill-appearing 82-year-old male who presents to the emergency department with a chief complaint of generalized weakness, dizziness, shortness of breath. He states onset of symptoms earlier this morning at about 11:00. He is a poor historian and that he is very weak and slow to answer questions. He was dropped off POV by a "friend" who left shortly after bringing him into the triage area. He denies chest pain. He denies abdominal pain. He denies head ache. He states he has a history of kidney disease and has a ingot header in [place]. 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 He has had bypass surgery with stents. On telemetry it is immediately obvious that he has a wide complex rhythm suspicious for hyperkalemia. I-STAT electrolytes obtained at the bedside shortly after arrival and his serum potassium is 7.8. Blood pressure slightly low 98 Timing/Duration: 4-6 Hours Severity: Severe Associated Systoms: Shortness of Air, Weakness Allergies and Home Medications Allergies Coded Allergies: No Known Drug Allergies (Unverified , 01/02/15) Patient Home Medication List Home Medication List Reviewed: Yes Albuterol Sulfate (Albuterol Sulfate) 0.63 Mg/3 Ml Vial.neb, 0.63 MG IH Q4H PRN for SHORTNESS OF BREATH, (Reported) Entered as Reported by: MICKY WAYNE on 01/02/15 1039 Aspirin (Aspir 81) 81 Mg Tablet.dr, 81 MG PO HS, (Reported) Entered as Reported by: MICKY WAYNE on 01/02/15 1039 Budesonide/Formoterol Fumarate (Symbicort 80-4.5 Mcg Inhaler) 10.2 Gm Hfa.aer.ad, 2 PUFF IH BID, (Reported) Entered as Reported by: MICKY WAYNE on 01/02/15 1039 Carvedilol (Coreg) 25 Mg Tablet, 12.5 MG PO BID, (Reported) Entered as Reported by: MICKY WAYNE on 01/02/15 1039 Dabigatran Etexilate Mesylate (Pradaxa) 150 Mg Capsule, 150 MG PO BID, (Reported) Entered as Reported by: MICKY WAYNE on 01/02/15 1039 Desonide (Desonide) 15 Gm Cream.gm., 1 GM TP BID, (Reported) Entered as Reported by: MICKY WAYNE on 01/02/15 1039 Docusate Sodium (Colace) 100 Mg Cap, 100 MG PO HS, (Reported) Entered as Reported by: MICKY WAYNE on 01/02/15 1039 Enalapril Maleate (Enalapril Maleate) 5 Mg Tablet, 5 MG PO DAILY, (Reported) Entered as Reported by: MICKY WAYNE on 01/02/15 1039 Fish Oil/Dha/Epa (Fish Oil 1,200 Mg Fish Oil) 1 Each Capsule, 1,200 MG PO DAILY, (Reported) Entered as Reported by: MICKY WAYNE on 01/02/15 1039 Furosemide (Lasix) 40 Mg Tablet, 80 MG PO DAILY, (Reported) Entered as Reported by: MICKY WAYNE on 01/02/15 1039 Hydrocodone/Acetaminophen ([place] 7.5-325 Tablet) 1 Each Tablet, 1 TAB PO Q4-6 PRN for PAIN Prescribed by: EMBER WALTERS on 01/16/15 1450 Nortriptyline Hcl (Nortriptyline Hcl) 75 Mg Capsule, 150 MG PO HS, (Reported) Entered as Reported by: MICKY WAYNE on 01/02/15 1039 Polyethylene Glycol (Miralax Btl) 119 Gm Btl, 1 TBS PO DAILY, (Reported) Entered as Reported by: MICKY WAYNE on 01/02/15 1039 Potassium Chloride (Potassium Chloride) 10 Meq Capsule.sa, 10 MEQ PO DAILY, (Reported) Entered as Reported by: MICKY WAYNE on 01/02/15 1039 Vit#96/Ferrous Fum/Fa ( Tablet) 1 Each Tablet, 1 EACH PO DAILY, (Reported) Entered as Reported by: MICKY WAYNE on 01/02/15 1039 Saliva Stimulant Agents Comb.2 (Biotene Oralbalance) 45 Ml Liquid, 0.5 INCH MM QID PRN for DRY MOUTH, (Reported) Entered as Reported by: MICKY WAYNE on 01/02/15 1039 Sildenafil Citrate (Viagra) 100 Mg Tablet, 50 MG PO EVERY OTHER NIGHT, (Reported) Entered as Reported by: MICKY WAYNE on 01/02/15 1039 Simvastatin (Simvastatin) 80 Mg Tablet, 40 MG PO HS, (Reported) Entered as Reported by: MICKY WAYNE on 01/02/15 1039 Sotalol Hcl (Sotalol Hcl) 80 Mg Tablet, 80 MG PO BID, (Reported) Entered as Reported by: MICKY WAYNE on 01/02/15 0948 Spironolactone (Aldactone) 25 Mg Tab, 25 MG PO DAILY, (Reported) Entered as Reported by: MICKY WAYNE on 01/02/15 1039 Terazosin Hcl (Hytrin 1 Mg) 1 Mg Capsule, 1 MG PO HS, (Reported) Entered as Reported by: MICKY WAYNE on 01/02/15 1039 Timolol Maleate (Timoptic 0.5%) 5 Ml Soln, 1 DROP OS BID, (Reported) Entered as Reported by: MICKY WAYNE on 01/02/15 1039 [Insulin Pump] , UNIT SC UD, (Reported) Entered as Reported by: MICKY WAYNE on 01/02/15 1039 [Roman Med Sinus Rinse] , 1 SPR NSEACH BID, (Reported) Entered as Reported by: MICKY WAYNE on 01/02/15 1039 Review of Systems Review of Systems Constitutional: see HPI, malaise, weakness Respiratory: short of breath Cardiovascular: no symptoms reported Gastrointestinal: no symptoms reported Genitourinary: no symptoms reported Musculoskeletal: no symptoms reported Limited due to clinical condition Past [place]ppis[place] Hx Past Medical History Surgeries: Yes CABG, Prostatectomy COPD Reproductive Disorders: No Prostate Problems Chronic Constipation Arthritis Diabetes, Insulin dep Loss of Vision: Bilateral Hearing Impairment: Bilateral Hearing Aide Prostate Physical Exam Vital Signs Vital Signs - First Documented 10/12/22 10/12/22 15:05 16:30 Temp 36.1 Pulse 85 Resp 32 B/P (MAP) 96/47 (63) Pulse Ox 98 O2 Delivery Mechanical Ventilator Capillary Refill : Height, Weight, BMI Height: 5'8.00" Weight: 258lbs. 0.0oz. [id number]; 29.00 BMI Method: General Appearance: WD/WN, Anxious Eyes: Bilateral Eye Normal Inspection, Bilateral Eye PERRL, Bilateral Eye EOMI HEENT: PERRL/EOMI, Other (Significantly dry oral mucosa) Neck: Normal Inspection Respiratory: Lungs Clear, Normal Breath Sounds, No Accessory Muscle Use, No Respiratory Distress, Other (tachypneic) Cardiovascular: Regular Rate, Rhythm (80's), Normal Peripheral Pulses, Other (70-80) Gastrointestinal: Soft; No Distended Extremity: Normal Capillary Refill, Normal Inspection, Normal Range of Motion Neurologic/Psychiatric: Alert, No Motor/Sensory Deficits, Other (a little slow to respond but appropriate) Skin: Normal Color, Warm/Dry Procedures/Interventions Date of ETT Placement: Oct 12, 2022 Time of ETT Placement: 16:00 Intubation Method: orotracheal Tube Size: 8 Medications: Etomidate, Rocuronium Positive End Tide CO2: Yes Breath Sounds after Intubation: bilateral-equal Intubation Complications: no complications Post Intubation Xray: Yes ett noted to be just at the clavicles; advanced 1cm; CPR: 1600 Defibrillation: x1 VT @200 Rhythm: V-Tachycardia after 2 minutes of CPR and ROSC patient developed VT; defib x1 with successful return to NSR; QRS noted to be much narrower after treatment Progress/Results/Core Measures Suspected Sepsis SIRS Temperature: Pulse: Respiratory Rate: Laboratory Tests 10/12/22 15:18: White Blood Count 8.5 Blood Pressure / Mean: Laboratory Tests 10/12/22 15:18: Creatinine 3.58H, INR Comment 1.3, Platelet Count 350, Total Bilirubin 0.3 Results/Orders Lab Results Laboratory Tests Test 10/12/22 15:18 10/12/22 15:22 10/12/22 15:35 10/12/22 15:49 Range/Units White Blood Count 8.5 4.3-11.0 10^3/uL Red Blood Count 3.55 L 4.30-5.52 10^6/uL Hemoglobin 10.1 L 13.3-17.7 g/dL Hematocrit 32 L 40-54 % Mean Corpuscular Volume 91 80-99 fL Mean Corpuscular Hemoglobin 29 25-34 pg Mean Corpuscular Hemoglobin Concent 31 L 32-36 g/dL Red Cell Distribution Width 13.9 10.0-14.5 % Platelet Count 350 130-400 10^3/uL Mean Platelet Volume 9.1 9.0-12.2 fL Immature Granulocyte % (Auto) 1 % Neutrophils (%) (Auto) 91 H 42-75 % Lymphocytes (%) (Auto) 3 L 12-44 % Monocytes (%) (Auto) 5 0-12 % Eosinophils (%) (Auto) 0 0-10 % Basophils (%) (Auto) 0 0-10 % Neutrophils # (Auto) 7.7 1.8-7.8 X 10^3 Lymphocytes # (Auto) 0.3 L 1.0-4.0 X 10^3 Monocytes # (Auto) 0.4 0.0-1.0 X 10^3 Eosinophils # (Auto) 0.0 0.0-0.3 10^3/uL Basophils # (Auto) 0.0 0.0-0.1 10^3/uL Immature Granulocyte # (Auto) 0.1 0.0-0.1 10^3/uL Neutrophils % (Manual) 94 % Lymphocytes % (Manual) 2 % Monocytes % (Manual) 3 % Eosinophils % (Manual) 0 % Basophils % (Manual) 1 % Band Neutrophils 0 % Blood Morphology Comment NORMAL Prothrombin Time 16.4 H 12.2-14.7 SEC INR Comment 1.3 0.8-1.4 Activated Partial Thromboplast Time 28 24-35 SEC Sodium Level 122 *L 135-145 MMOL/L Potassium Level 7.7 #*H 3.6-5.0 MMOL/L Chloride Level 87 L 98-107 MMOL/L Carbon Dioxide Level 6 *L 21-32 MMOL/L Anion Gap 29 H 5-14 MMOL/L Blood Urea Nitrogen 64 H 7-18 MG/DL Creatinine 3.58 H 0.60-1.30 MG/DL Estimat Glomerular Filtration Rate 16 BUN/Creatinine Ratio 18 Glucose Level 1122 *H 70-105 MG/DL Calcium Level 10.1 8.5-10.1 MG/DL Corrected Calcium 10.3 H 8.5-10.1 MG/DL Magnesium Level 2.8 H 1.6-2.4 MG/DL Total Bilirubin 0.3 0.1-1.0 MG/DL Aspartate Amino Transf (AST/SGOT) 14 5-34 U/L Alanine Aminotransferase (ALT/SGPT) 16 0-55 U/L Alkaline Phosphatase 114 40-136 U/L Troponin I 0.041 H <0.028 NG/ML Total Protein 7.0 6.4-8.2 GM/DL Albumin 3.7 3.2-4.5 GM/DL Beta-Hydroxybutyrate (Chem panel) 9.92 H 0.00-0.27 MMOL/L POC Glucose (Misc Panel) 70-105 mg/dL POC Sodium (Misc Panel) 118 *L 138-146 mmol/L POC Potassium (Misc Panel) 7.6 *H 3.5-4.9 mmol/L POC Chloride (Misc Panel) 91 L 98-109 mmol/L POC Total CO2 (Misc Panel) 12 L 24-29 mmol/L POC Anion Gap (Misc Panel) 24 H 10-20 mmol/L POC Blood Urea Nitrogen (Misc Panel 73 H 8-26 mg/dL POC Creatinine (Misc Panel) 3 H 0.6-1.3 mg/dL POC Hemoglobin (Calculated)(Misc) 11.2 L 12.0-17.0 g/dL POC Hematocrit (Misc Panel) 33 L 38-51 %PCV Blood Gas Puncture Site LEFT WRIST Blood Gas Patient Temperature 36.1 Arterial Blood pH 7.14 *L 7.37-7.43 Arterial Blood Partial Pressure CO2 23 L 35-45 MMHG Arterial Blood Partial Pressure O2 87 79-93 MMHG Arterial Blood HCO3 8 *L 23-27 MMOL/L Arterial Blood Total CO2 8.4 *L 21.0-31.0 MMOL/L Arterial Blood Oxygen Saturation 95 94-100 % Arterial Blood Base Excess -19.9 L -2.5-2.5 MMOL/L Vito Test YES-POS Blood Gas Ventilator Setting NO Blood Gas Inspired Oxygen NA Urine Color YELLOW Urine Clarity CLEAR Urine pH 5.5 5-9 Urine Specific [place] 1.010 L 1.016-1.022 Urine Protein NEGATIVE NEGATIVE Urine Glucose (UA) 3+ H NEGATIVE Urine Ketones 1+ H NEGATIVE Urine Nitrite NEGATIVE NEGATIVE Urine Bilirubin NEGATIVE NEGATIVE Urine Urobilinogen 0.2 < = 1.0 MG/DL Urine Leukocyte Esterase NEGATIVE NEGATIVE Urine RBC (Auto) NEGATIVE NEGATIVE Urine RBC NONE /HPF Urine WBC NONE /HPF Urine Squamous Epithelial Cells RARE /HPF Urine Crystals NONE /LPF Urine Bacteria NEGATIVE /HPF Urine Casts NONE /LPF Urine Mucus NEGATIVE /LPF Urine Culture Indicated NO My Orders Orders - TYRA GORE MD Cbc With Automated Diff (10/12/22 15:21) Magnesium (10/12/22 15:21) Chest 1 View, Ap/Pa Only (10/12/22 15:21) Ekg Tracing (10/12/22 15:21) Comprehensive Metabolic Panel (10/12/22 15:21) Protime With Inr (10/12/22 15:21) Partial Thromboplastin Time (10/12/22 15:21) O2 (10/12/22 15:21) Monitor-Rhythm Ecg Trace Only (10/12/22 15:21) Ed Iv/Invasive Line Start (10/12/22 15:21) Troponin I [place] (10/12/22 15:21) Beta Hydroxybutyrate (10/12/22 15:21) Ua Culture If Indicated (10/12/22 15:21) Ns Iv 1000 Ml (Sodium Chloride 0.9%) (10/12/22 15:30) Calcium Chloride 10% Injection (Calcium (10/12/22 15:30) Insulin (Regular) Human (Novolin R (Per (10/12/22 15:29) Insulin (Regular) Human (Novolin R (Per (10/12/22 15:29) Sodium Polystyrene Powder (Kayexalate P (10/12/22 15:45) Manual Differential (10/12/22 15:18) Arterial Blood Gas (10/12/22 15:38) Lidocaine 2% (Urojet) (Xylocaine Urojet) (10/12/22 15:45) Atropine Injection (Atropine Injection) (10/12/22 15:47) Propofol Drip (Icu) (Diprivan Drip (Icu) (10/12/22 16:12) Ekg Tracing (10/12/22 16:41) Ekg Tracing (10/12/22 16:41) Ns Iv 1000 Ml (Sodium Chloride 0.9%) (10/12/22 17:15) Ns Iv 1000 Ml (Sodium Chloride 0.9%) (10/12/22 17:52) Medications Given in ED Vital Signs/I&O 10/12/22 10/12/22 10/12/22 15:05 16:17 16:30 Temp 36.1 Pulse 85 78 78 Resp 32 29 B/P (MAP) 96/47 (63) 123/76 123/46 Pulse Ox 98 100 O2 Delivery Mechanical Ventilator 10/13/22 00:00 Intake Total 2000 ml Balance 2000 ml Capillary Refill : Progress Note : Time: 16:01 Progress Note Patient identified within about 15 minutes of arrival to be in DKA with significant hyperkalemia with a serum potassium of 7.6 and on i-STAT bedside testing serum glucose greater than 700 with an anion gap of 24. Patient treated immediately with 1 g calcium chloride. He had a little narrowing of the QRS complex. 1 L of IV fluid bolused in. Orders for Kayexalate, IV and subcu insulin. Shortly after speaking with Dr. Flowers at [facility] the patient was noted to bradycardia down into the 30s. Atropine ordered. He did not respond and continued to bradycardia down. Repeat atropine and the patient lost his pulse. CPR started. Patient given epi x1 effective CPR with [id number]. As it had been greater than 15 to 20 minutes since the patient got his calcium I re-bolused calcium. Preparation for intubation. As the patient was being bagged it was noted that he went into a short run of V. tach. Defibrillated x1 at 200 J. Resolved into a normal sinus rhythm with a blood pressure of 158/57 heart rate of 98 nice narrow QRS complexes being bagged at approximately 24 breaths a minute currently. Sats 100% after intubation. Chest x-ra is being done at this time. Helicopter is approximately 6 minutes out. Labs resulting at 1606 sodium 122, potassium 7.7, CO2 6, glucose 1122 pH 7.14 bicarb on ABG 8 RN noted on removing insulin pump that the needle had failed, it was bent across the sticky pad against his abdomen and obviously had not been in place. ECG Initial ECG Impression Date: Oct 12, 2022 Initial ECG Impression Time: 15:15 Initial ECG Intervals: QRS Comment Wide-complex rhythm with QRS in the 150 range. Large T wave Diagnostic Imaging Diagonstic Imaging: Xray Plain Films/CT/US/NM/MRI: chest Comments CXR - interpreted by me - Ett positioned high, equal expansion of both lungs; no ptx; no effusion or infiltrate Critical Care Note Critical Care Start Time: 15:10 Stop Time: 16:10 Total Time (minutes) 50min critical care time in the eval of this 82yo with DKA and critical hyperkalemia. Time includes initial eval with rapid identification of s/sx critical hyperkalemia, initiation of treatment specific measures, IV Calcium chloride, fluid resuscitation for hypotension, treatment of hyperglycemia (and hyperkalemia) with IV insulin; serial ekg interpretation; review of labs and imaging; discussion with transferring hospital and discussion with family. Time does not include that spent in procedures (intubation and CPR) Departure Impression Primary Impression: Diabetic ketoacidosis Qualified Codes: E13.10 - Other specified diabetes mellitus with ketoacidosis without coma Additional Impressions: Hyperkalemia Cardiac arrest as complication of care Disposition: 02 XFER SHT-TRM HOSP Condition: Critical Transfer Transfer Reason: Exceeds level of care Time Spoke to Accepting Phy: 15:38 Transfer Progress Notes Discussed with Dr. Lionel Bowman ED physician who accepts the patient for transfer Transfer Time: 16:10 Transfer Facility: [facility] Method of Transfer: Air Departure-Patient Inst. Referrals: EAN DUNN DO (PCP/Family) Primary Care Physician TYRA GORE MD Oct 12, 2022 15:29
[2022-10-12 15:30] LABS: BASOPHILS % (AUTO) 0 % (0-10); EOSINOPHILS % (AUTO) 0 % (0-10); HEMATOCRIT 32 % (40-54); HEMOGLOBIN 10.1 g/dL (13.3-17.7); LYMPHOCYTES # (AUTO) 0.3 X 10^3 (1.0-4.0); LYMPHOCYTES % (AUTO) 3 % (12-44); MEAN CORPUSCULAR HEMOGLOBIN 29 pg (25-34); MEAN CORPUSCULAR HGB CONC 31 g/dL (32-36); MEAN CORPUSCULAR VOLUME 91 fL (80-99); MEAN PLATELET VOLUME 9.1 fL (9.0-12.2); MONOCYTES # (AUTO) 0.4 X 10^3 (0.0-1.0); MONOCYTES % (AUTO) 5 % (0-12); NEUTROPHILS # (AUTO) 7.7 X 10^3 (1.8-7.8); NEUTROPHILS % (AUTO) 91 % (42-75); PLATELET COUNT 350 10^3/uL (130-400); WHITE BLOOD COUNT 8.5 10^3/uL (4.3-11.0)
[2022-10-12] MEDS ORDERED: NS IV 1000 ML 1,000 ML IV SCH (15:30)
[2022-10-12 15:36] LABS: ALBUMIN 3.7 GM/DL (3.2-4.5)
[2022-10-12 15:38] LABS: CALCIUM 10.1 MG/DL (8.5-10.1)
[2022-10-12 15:41] LABS: BILIRUBIN,TOTAL 0.3 MG/DL (0.1-1.0)
[2022-10-12 15:42] LABS: INR 1.3 (0.8-1.4); PROTHROMBIN TIME PATIENT 16.4 SEC (12.2-14.7)
[2022-10-12 15:43] LABS: CREATININE SERUM 3.58 MG/DL (0.60-1.30)
[2022-10-12 15:45] LABS: MAGNESIUM 2.8 MG/DL (1.6-2.4)
[2022-10-12] MEDS ORDERED: SODIUM POLYSTYRENE POWDER 15 GM BOTTLE PO ONE (15:45)
[2022-10-12] MEDS ORDERED: LIDOCAINE UROJET 2% GEL 10 ML PKG ONE (15:45)
[2022-10-12 15:46] LABS: BAND NEUTROPHILS 0 %; NEUTROPHILS % (MANUAL) 94 %
[2022-10-12 15:47] LABS: BASOPHILS % (MANUAL) 1 %; EOSINOPHILS % (MANUAL) 0 %; LYMPHOCYTES % (MANUAL) 2 %; MONOCYTES % (MANUAL) 3 %; RBC MORPH NORMAL
[2022-10-12] MEDS ORDERED: ATROPINE INJ 0.4 MG/ML SDV ONE (15:47)
[2022-10-12] MEDS: NS IV 1000 ML 1,000 ML IV SCH ×2 (15:56→16:08)
[2022-10-12 16:02] LABS: POTASSIUM 7.7 MMOL/L (3.6-5.0)
[2022-10-12 16:10] LABS: BILIRUBIN,URINE NEGATIVE (NEGATIVE); CLARITY,URINE CLEAR; COLOR,URINE YELLOW; GLUCOSE, URINE (UA) 3+ (NEGATIVE); KETONES,URINE 1+ (NEGATIVE); LEUKOCYTE ESTERASE ,URINE NEGATIVE (NEGATIVE); NITRITE,URINE NEGATIVE (NEGATIVE); PH,URINE 5.5 (5-9); PROTEIN,URINE NEGATIVE (NEGATIVE)
[2022-10-12] MEDS ORDERED: PROPOFOL DRIP (ICU) 100 ML IV ONE (16:12)
[2022-10-12 16:29] LABS: BACTERIA,URINE NEGATIVE /HPF; SQUAMOUS EPITHELIAL CELL,UR RARE /HPF
[2022-10-12 16:30] VITALS: BP 123/46
--- NOTE | 2022-10-12 16:37 | Diagnostic Imaging Report ---
EXAMINATION: Chest 1 view. HISTORY: Chest pain. Post code. COMPARISON: 02/19/2022. FINDINGS: The endotracheal tube is seen with the tip overlying the trachea approximately 6 cm above the leticia. This appears to terminate above the thoracic inlet. Enteric tube is seen with the tip overlying the proximal stomach and the side port within the distal esophagus. The lung volumes are normal. No focal consolidation is seen. No large pleural effusion or pneumothorax is seen. Stable cardiac silhouette with post CABG changes. There is calcified aortic atherosclerotic plaque. No acute osseous abnormality is seen. Chronic right-sided rib fracture is seen. IMPRESSION: 1. No focal consolidation or pleural effusion. 2. Endotracheal tube with the tip approximately 6 cm above the leticia and appearing to terminate above the thoracic inlet. This may be partially due to projection. Recommend correlation with patient O2 saturation and, if indicated, advance 1 to 2 cm. The enteric tube also appears to terminate in the proximal stomach with the side-port in the distal esophagus. This could also be advanced 5 to 6 cm. Dictated by: Dictated on workstation # [id number]
[2022-10-12 16:45] LABS: ABG BASE EXCESS -19.9 MMOL/L (-2.5-2.5); ABG OXYGEN SATURATION 95 % (94-100); ABG PCO2 23 MMHG (35-45); ABG PH 7.14 (7.37-7.43); ABG PO2 87 MMHG (79-93); ABG TCO2 8.4 MMOL/L (21.0-31.0); ALLENS TEST YES-POS; VENTILATOR NO
[2022-10-12 16:46] LABS: PATIENT TEMP 36.1
[2022-10-12] MEDS ORDERED: NS IV 1000 ML 2,000 ML ONE (17:52)
== END 2022-10-12 16:40 | disposition short-term general hospital (02) ==
LOC: EDUNIT# 15:05 → ER 15:17
DX: E11.10 Type 2 diabetes mellitus with ketoacidosis without coma (principal); E87.5 Hyperkalemia; E11.65 Type 2 diabetes mellitus with hyperglycemia; I46.9 Cardiac arrest, cause unspecified; I95.9 Hypotension, unspecified; Z79.4 Long term (current) use of insulin
CPT/HCPCS: 31500; 36415; 51702; 71045; 80047; 80053; 81000; 82010; 82805; 83735; 84484; 85007; 85027; 85610; 85730; 93005; 93041; 99291

== ENCOUNTER 2022-10-16 10:24 | Inpatient (IN) | payer MEDICARE ==
[~2022-10-16] VITALS: Ht 177.8 cm; Wt 93.7 kg
[2022-10-16] MEDS ORDERED: diphenhydrAMINE 25 MG TAB (BENADRYL) PO PRN (12:45)
[2022-10-16] MEDS ORDERED: BISACODYL 10 MG SUPP (DULCOLAX) PR PRN (12:45)
[2022-10-16] MEDS ORDERED: ACETAMINOPHEN 325 MG TABLET PO PRN (12:45)
[2022-10-16] MEDS ORDERED: ONDANSETRON 4 MG (ZOFRAN) ORAL DISSOLVE TAB PO PRN (12:45)
[2022-10-16] MEDS ORDERED: ALPRAZolam 0.25 MG (XANAX) TAB PO PRN (12:45)
[2022-10-16] MEDS ORDERED: FLEET ENEMA ADULT 1 EA BTL PR PRN (12:45)
[2022-10-16] MEDS ORDERED: CALCIUM CARBONATE 500 MG (TUMS) TAB.CHEW PO PRN (12:45)
[2022-10-16] MEDS ORDERED: LACTULOSE SYRUP 10GM/15ML (ENULOSE) 30ML UDC PO PRN (12:45)
[2022-10-16] MEDS ORDERED: MELATONIN 3 MG TABLET PO PRN (12:45)
[2022-10-16] MEDS ORDERED: LOPERAMIDE 2 MG (IMODIUM) TABLET PO PRN (12:45)
[2022-10-16] MEDS ORDERED: DOCUSATE SODIUM 100 MG (COLACE) CAP PO PRN ×2 (12:45→17:45)
[2022-10-16] MEDS ORDERED: PNV1TABL81 PO (14:35)
[2022-10-16] MEDS ORDERED: SENN-145 PO (14:35)
[2022-10-16] MEDS ORDERED: DICL100G13 TP (14:35)
[2022-10-16] MEDS ORDERED: NITR0.4T39 SL (14:35)
[2022-10-16] MEDS ORDERED: ACET-2267 PO (14:35)
[2022-10-16] MEDS ORDERED: TIMO5DRO31 OS (14:35)
[2022-10-16] MEDS ORDERED: BETA15CR4 TP (14:35)
[2022-10-16] MEDS ORDERED: POLY17PO6 PO (14:35)
[2022-10-16] MEDS ORDERED: LEVO50TA6 PO (14:35)
[2022-10-16] MEDS ORDERED: ASPI-999 PO (14:35)
[2022-10-16] MEDS ORDERED: IRON1TAB95 PO (14:35)
[2022-10-16] MEDS ORDERED: [UNRECOGNIZED DRUG - CODE] DT (14:35)
[2022-10-16] MEDS ORDERED: BUDE0.5A7 NEB (14:35)
[2022-10-16] MEDS ORDERED: POTA-177 PO (14:35)
[2022-10-16] MEDS ORDERED: FLUT1DIS28 IH (14:35)
[2022-10-16] MEDS ORDERED: NALO4SPR3 NS (14:35)
[2022-10-16] MEDS ORDERED: GLUC1KIT2 IJ (14:35)
[2022-10-16] MEDS ORDERED: BRIMON0.2 OS (14:35)
[2022-10-16] MEDS ORDERED: OMEG-86 PO (14:35)
[2022-10-16] MEDS ORDERED: INSU100V16 SQ (14:35)
[2022-10-16] MEDS ORDERED: BUDE10.2 IH (14:35)
[2022-10-16] MEDS ORDERED: ACHD5005 PO (14:35)
[2022-10-16] MEDS ORDERED: TERA1CAP3 PO (14:35)
[2022-10-16] MEDS ORDERED: DEXT-157 PO (14:35)
[2022-10-16] MEDS ORDERED: CLOP75TA28 PO (14:35)
[2022-10-16] MEDS ORDERED: ROSU40TA23 PO (14:35)
[2022-10-16] MEDS ORDERED: HYPR15DR23 OU (14:35)
[2022-10-16] MEDS ORDERED: FAMO20TA5 PO (14:35)
[2022-10-16] MEDS ORDERED: SILD50TA48 PO (14:35)
[2022-10-16] MEDS ORDERED: CARV3.122 PO (14:35)
[2022-10-16] MEDS ORDERED: ENAL-66 PO (14:35)
[2022-10-16] MEDS ORDERED: PANT40TA52 PO (14:35)
[2022-10-16] MEDS ORDERED: [UNRECOGNIZED DRUG - OTHER] (14:35)
[2022-10-16] MEDS ORDERED: SIME125T50 PO (14:35)
[2022-10-16] MEDS ORDERED: OMEG200L PO (14:35)
[2022-10-16] MEDS ORDERED: DOCU100C37 PO (14:35)
[2022-10-16] MEDS ORDERED: DOFE125C4 PO (14:35)
[2022-10-16] MEDS ORDERED: RT-ALBUINH INH (14:35)
[2022-10-16] MEDS ORDERED: NORT75CA PO (14:35)
[2022-10-16] MEDS ORDERED: DESO15CR26 TP (14:35)
[2022-10-16] MEDS ORDERED: SALI42GE MM (14:35)
[2022-10-16] MEDS ORDERED: FURO20TA4 PO (14:35)
[2022-10-16 15:00] VITALS: BP 114/54
--- OUTSIDE RECORDS SUMMARY | 2022-10-16 15:07 | XMS REPORT | Encounter Summary ---
Author Organization Unknown Address [address] [place] [id number] Phone [phone] Care Team Providers Care Molecular Modeler Name Role Phone Jes Ballesteros DO 3 [phone] Jhonathan STOKES 3 [phone] Akhil Bailey MD 2 [phone] Reason for Visit None recorded. Instructions 1. Type 1 diabetes mellitus Discussion Note: None recorded. Patient educational handouts: No information available. Plan of Care Reminders Provider Appointments Follow up 11/12/2022 1:40PM Ashwini Bose NP, S Lab None recorded. Referral None recorded. Procedures None recorded. Surgeries None recorded. Imaging None recorded. Medications Name Start Date acetaminophen 500 mg tablet Take 2 tablets every 6 hours by oral route as needed. Aldactone 25 mg tablet Take 1 tablet every day by oral route. alprazolam 0.25 mg tablet Take 1 tablet twice a day by oral route. betamethasone dipropionate 0.05 % topica l cream APPLY 1-2 GRAMS TOPICALLY TWICE DAILY budesonide 0.5 mg/2 mL suspension for ne bulization USE 1 VIAL IN NEBULIZER TWICE DAILY budesonide 180 mcg/actuation breath acti vated powder inhaler Inhale 1 puff twice a day by inhalation route. clopidogrel 75 mg tablet Take 1 tablet every day by oral route. Colace 100 mg capsule TAKE 1 CAPSULE (100 MG) BY ORAL ROUTE ONCE DAILY AT BEDTIME NEEDED Dexcom G6 Sensor device Dexcom G6 Transmitter device diltiazem 120 mg tablet Take 1 tablet every day by oral route. dofetilide 125 mcg capsule Take 1 capsule twice a day by oral route. doxycycline hyclate 100 mg capsule TAKE 1 CAPSULE BY MOUTH TWICE DAILY FOR 10 DAYS duloxetine 20 mg capsule,delayed release Take 1 capsule twice a day by oral route. enalapril maleate 5 mg tablet Take 1 tablet every day by oral route. escitalopram 10 mg tablet TAKE 1 TABLET BY MOUTH NIGHTLY Fish Oil furosemide 40 mg tablet Take 1 tablet every day by oral route. iron Iron (ferrous sulfate) Ketostix strips test urine if BG over 250 or if ill, Replace every 6 months levothyroxine 50 mcg tablet Take 1 tablet every day by oral route. nitroglycerin 0.[address] 1 tablet by sublingual route. nortriptyline 75 mg capsule Take 1 capsule every day by oral route. Novolog U-100 Insulin aspart 100 unit/mL subcutaneous solution Infuse 150 units daily via pump [place] 3 pantoprazole 40 mg tablet,delayed releas e Take 1 tablet every day by oral route. potassium rosuvastatin 40 mg tablet Take 1 tablet every day by oral route. sildenafil 50 mg tablet Take 1 tablet every other day by oral route. simethicone 125 mg chewable tablet Take 1 tablet every day by oral route. terazosin 1 mg capsule Take 1 capsule every day by oral route. timolol 0.5 % eye drops INSTILL 1 DROP INTO AFFECTED EYE(S) BY OPHTHALMIC ROUTE 2 TIMES PER DAY tramadol 50 mg tablet TAKE 1 TABLET BY MOUTH TWICE DAILY Viagra 100 mg tablet Take 0.5 tablets every other day by oral route. Zantac Medications Administered None recorded. Vitals None recorded. Results Lab Results None recorded. Allergies Code Code System Name Reaction Severity Status Onset NKDA Problems Name Status Onset Date Source Type 1 Diabetes Mellitus Active 03/17/2018 Peripheral Vascular Disease Active 03/17/2018 Acquired Hypothyroidism Active 09/22/2018 Long-term Current Use of Insulin Active 03/25/2019 Mixed Hyperlipidemia Active 07/03/2019 Procedures Date Name Performed by Unlisted Px Foot/toes Information not available Cataract Surgery Complex Information not available Prostatectomy (Turp) Information not available Cabg Information not avai lable Vaccine List Vaccine Type COVID-19 (SARS-COV-2) vaccine, unspecifi ed 05/03/2022 COVID-19, mRNA, LNP-S, PF, 100 mcg/0.5 m L dose (Moderna) 08/31/2020 09/19/2020 influenza, injectable, quadrivalent 04/20/2018 06/03/2019 03/03/2020 05/03/2021 influenza, unspecified formulation 05/03/2022 tetanus toxoid, unspecified formulation 02/17/2022 Social History Tobacco Smoking Status Former Smoker Past Encounters Encounter Date Diagnosis Provider 09/17/2022 Type 1 Diabetes Mellitus Shoshana Marielle, undefined: [address], [address], [place] [address], Ph. 09/03/2022 Type 1 Diabetes Mellitus Shoshana Marielle, undefined: [address], [address], [place] [address], Ph. History of Present Illness None recorded. Review of Systems None recorded. Physical Exam None recorded.
--- OUTSIDE RECORDS SUMMARY | 2022-10-16 15:07 | XMS REPORT | Encounter Summary ---
Author Organization Unknown Address [address] [place] [id number] Phone [phone] Care Team Providers Care Perfume And Toilet Water Maker Name Role Phone Jes Ballesteros DO 3 [phone] Jhonathan STOKES 3 [phone] Akhil Bailey MD 2 [phone] Reason for Visit None recorded. Instructions 1. [...] solution Infuse 150 units daily via pump [place] 3 pantoprazole 40 mg tablet,delayed releas e [...] recorded. Vitals None recorded. Results Lab Results Date Name Specimen Result Interpretation Description Value Range Status Address 08/13/2022 Hemoglobin a1C, Fingerstick Hgb 6.7% [facility]: [address], [place] Allergies Code Code System Name Reaction Severity [...] Provider 09/17/2022 Type 1 Diabetes Mellitus Shoshana Palomares, undefined: [address], Suite [facility], [place] [address], Ph. 09/03/2022 Type 1 Diabetes Mellitus Shoshana Palomares, undefined: [address], [facility] [address], [place] [address], Ph. 08/13/2022 Type 1 Diabetes Mellitus; Ac quired Hypothyroidism; Mixed Hyperlipidemia; Long-term Current Use of Insulin Ashwini Bose NP, S: [address], [address], [place] [address], Ph. History of Present Illness None recorded. Review of Systems None recorded. Physical Exam None recorded.
--- OUTSIDE RECORDS SUMMARY | 2022-10-16 15:07 | XMS REPORT | Clinical Summary ---
Author Author [facility] Organization [facility] Address Unknown Phone Unavailable Care Team Providers Care Pipe Smoking Machine Operator Name Role Phone BallesterosIgor PCP Source Comments Some departments are not documenting in the electronic medical record. If you d o not see the information that you expected, contact [facility] Information [facility] [employer] Information Management department at [phone] for further assistan ce in locating additional records.[facility] Allergies No known active allergies Medications End Date Status Medication Sig Dispensed Refills Start Date Active potassium chloride Take 10 mEq 0 (K-DUR) 10 mEq tablet by mouth daily. Take with a meal and a full glass of water. Active vit Take by 0 calc,iron,folic ( mouth daily. VITAMIN PO) Active furosemide (LASIX) 40 mg Take 40 mg by 0 tabletIndications: mouth every (2-40mg) morning. Indications: (2-40mg) Active spironolactone Take 25 mg by 0 (ALDACTONE) 25 mg tablet mouth daily. Take with food. Active enalapril (VASOTEC) 5 mg Take 5 mg by 0 tablet mouth daily. Active polyethylene glycol 3350 Take by 0 (MIRALAX PO)Indications: mouth. 1 Tbsp po qd Indications: 1 Tbsp po qd Active budesonide/formoterol Inhale 2 0 (SYMBICORT HFA) 80-4.5 puffs by mcg/actuation inhalation mouth into the lungs twice daily. Active docosahexanoic acid/epa Take 1,200 mg 0 (FISH OIL PO) base by mouth daily. Active sod chlor,bicarb/squeez by sinus 0 bottle (NEILMED SINUS irrigation RINSE COMPLETE ILYA) route twice daily. Active desonide(+) (TRIDESILON) Apply 0 0.05 % topical cream topically to affected area twice daily. Active saliva stimulant comb. by Mucous 0 no.7 gelIndications: 1/2 Membrane inch on toungue as needed route. Indications: 1/2 inch on toungue as needed Active timolol maleate 1 drop twice 0 (TIMOPTIC) 0.5 % daily. ophthalmic Indications: dropsIndications: Left Left eye eye Active dofetilide (TIKOSYN) 125 Take 125 mcg 0 mcg capsule by mouth twice daily. Active ALPRAZolam (XANAX) 0.25 Take 0.25 mg 0 mg tablet by mouth twice daily. Active levothyroxine sodium Take by 0 (LEVOTHYROXINE PO) mouth. Active clopiDOGrel (PLAVIX) 75 Take 75 mg by 0 mg tablet mouth daily. Active diltiazem CD (CARDIZEM Take 120 mg 0 CD) 120 mg capsule by mouth daily. Active rosuvastatin (CRESTOR) 40 Take 40 mg by 0 mg tabletIndications: mouth daily. (Cut 40mg tab) Indications: (Cut 40mg tab) Active terazosin (HYTRIN) 1 mg Take 1 mg by 0 capsule mouth daily. Active nortriptyline HCl Take by 0 (NORTRIPTYLINE PO) mouth. Active nortriptyline (PAMELOR) Take 150 mg 0 75 mg capsuleIndications: by mouth Take two 75mg tablets po daily. qd Indications: Take two 75mg tablets po qd Active sildenafil(+) (VIAGRA) 50 Take 50 mg by 0 mg tablet mouth every other day as needed for Erectile dysfunction. Active DOCUSATE SODIUM Take by 0 POIndications: 1 tab po mouth daily. qd Indications: 1 tab po qd Active ALBUTEROL IN Inhale by 0 mouth into the lungs. Active NITROGLYCERIN Take by 0 POIndications: 0.4 mg prn mouth. Indications: 0.4 mg prn Active insulin pumpIndications: by NOT 0 Breakfast : Novalog Bolus APPLICABLE 15 units, Lunch: Novalog route. Bolus 15 units and Indications: Supper: Novalog Bolus 18 Breakfast : units. Novalog Bolus 15 units, Lunch: Novalog Bolus 15 units and Supper: Novalog Bolus 18 units. Active other medication 1 Dose. 0 [employer] PreviDent 5000 Plus Sig: BID Active chlorhexidine gluconate by Mucous 0 (PAROEX ORAL RINSE MM) Membrane route twice daily. Active pantoprazole DR Take one 60 tablet 6 (PROTONIX) 40 mg tablet tablet by 0 mouth twice daily. Active dabigatran (PRADAXA) 150 Take 150 mg 0 mg capsule by mouth twice daily. Active Problems Not on file Encounters Care Team Description Date Type Specialty Franco Cabrera MD EGD 08/05/2022 Surgery Gastroenterology Magdalena Rodriguez MD 08/05/2022 Anesthesia Gastroenterology Event Franco Cabrera MD History of Oliva's esophagus 08/05/2022 Hospital Gastroenterology Encounter 08/05/2022 Travel Franco Cabrera MD Care Coordination 08/03/2022 Telephone Gastroenterology from Last 3 Months Surgical History Surgery Date Site/Laterality Comments UPPER GASTROINTESTINAL 07/29/2019 N/A EGD per formed by Franco Cabrera MD at ENDO/GI ENDOSCOPY UPPER GASTROINTESTINAL 07/29/2019 ESOPHAGOGASTROD UODENOSCOPY WITH DELIVERY OF ENDOSCOPY THERMAL ENERGY LOWER ESOPHA GEAL SPHINCTER MUSCLE/ GASTRIC CARDIA FOR TREATMENT OF GASTROE SOPHAGEAL REFLUX DISEASE - FLEXIBLE performed by Franco Cabrera MD at ENDO/GI UPPER GASTROINTESTINAL 02/10/2020 N/A EGD per formed by Franco Cabrera MD at [facility] ENDO ENDOSCOPY UPPER GASTROINTESTINAL 02/10/2020 ESOPHAGOGASTROD UODENOSCOPY WITH DELIVERY OF ENDOSCOPY THERMAL ENERGY LOWER ESOPHA GEAL SPHINCTER MUSCLE/ GASTRIC CARDIA FOR TREATMENT OF GASTROE SOPHAGEAL REFLUX DISEASE - FLEXIBLE performed by Franco Cabrera MD at [facility] ENDO UPPER GASTROINTESTINAL 04/13/2020 N/A EGD per formed by Franco Cabrera MD at [facility] ENDO ENDOSCOPY UPPER GASTROINTESTINAL 04/13/2020 ESOPHAGOGASTROD UODENOSCOPY WITH DELIVERY OF ENDOSCOPY THERMAL ENERGY LOWER ESOPHA GEAL SPHINCTER MUSCLE/ GASTRIC CARDIA FOR TREATMENT OF GASTROE SOPHAGEAL REFLUX DISEASE - FLEXIBLE performed by Franco Cabrera MD at [facility] ENDO UPPER GASTROINTESTINAL 10/12/2020 N/A EGD per formed by Franco Cabrera MD at [facility] ENDOSCOPY ESOPHAGOSCOPY 10/12/2020 ESOPHAGOSCOPY WITH ABLATION OF TUMOR/ POLYP/ OTHER LESION - FLEXIBLE performed by Franco Cabrera MD at [facility] ENDO UPPER GASTROINTESTINAL 06/07/2021 N/A EGD per formed by Franco Cabrera MD at [facility] ENDO ENDOSCOPY UPPER GASTROINTESTINAL 06/07/2021 N/A ESOPHAG OGASTRODUODENOSCOPY WITH BIOPSY - FLEXIBLE ENDOSCOPY performed by Franco Cabrera MD at [facility] ENDO UPPER GASTROINTESTINAL 08/05/2022 N/A EGD per formed by Franco Cabrera MD at [facility] ENDO ENDOSCOPY Medical History Medical History Date Comments DM (diabetes mellitus) (HCC) Gastrointestinal disorder Coronary artery disease Congestive heart disease (HCC) Myocardial infarction (HCC) Asthma Dysphagia Presence of Watchman left atrial appendage closure device Social History Date Tobacco Use Types Packs/Day Years Used Smoking Tobacco: Former Cigarettes Smokeless Tobacco: Never Tobacco Cessation: Counseling Given: Not Answered Comments Alcohol Use Standard Drinks/Week Not Currently 0 (1 standard drink = 0.6 o z pure alcohol) Sex Assigned at Date Recorded Male 01/19/2020 5:17 PM CDT Obstetrics History Last Filed Vital Signs Reading Time Taken Comments Vital Sign 139/62 08/05/2022 12:15 PM CRT Blood Pressure 84 08/05/2022 12:15 PM CRT Pulse 36.8 C (98.3 F) 08/05/2022 12:00 PM CRT Temperature 16 06/15/2019 2:00 PM CRT Respiratory Rate 97% 08/05/2022 12:15 PM CRT Oxygen Saturation - - Inhaled Oxygen Concentration 88 kg (194 lb) 08/05/2022 10:03 AM CRT Weight 177.8 cm (5' 10") 08/05/2022 10:03 AM CRT Height 27.84 08/05/2022 10:03 AM CRT Body Mass Index Plan of Treatment Health Maintenance Due Date Last Done Comments MEDICARE ANNUAL WELLNESS 1940 VISIT PHYSICAL (COMPREHENSIVE) 1960 EXAM INFLUENZA VACCINE (#1) 2022 ADVANCED CARE PLANNING 08/03/2022 DISCUSSION AND DOCUMENTATION DEPRESSION SCREENING 08/03/2022 06/15/2019 DTAP/TDAP VACCINES (4 - 10/17/2031 10/16/2021, Td or Tdap) 04/23/2015, 10/06/2012, Additional history exists SHINGLES RECOMBINANT Completed 11/04/2018, VACCINE 04/30/2018, 08/26/2012, Additional history exists PNEUMOCOCCAL VACCINE Completed 04/09/2021, 01/17/2014, 05/23/2007, Additional history exists COVID-19 VACCINE Completed 05/27/2022, 11/02/2021, 07/10/2021, Additional history exists Medical Devices Device Identifier Shelf Expiration Date Model / Serial / L ot Implanted Type Area Manufactur er Other Other Description: Watchman Procedures Comments Procedure Name Priority Date/Time Associated Diag nosis POC GLUCOSE 08/05/2022 12:02 PM CRT HC LVL IV SRG PTH, GROSS Routine 08/05/2022 Histo ry of Oliva's & MICRO 11:48 AM CRT esophagus ESOPHAGOGASTRODUODENOSCOP 08/05/2022 History of Oliva's Y WITH BIOPSY - FLEXIBLE 11:37 AM CRT esophagus Special Needs 12.27.22 4 day call pt conf appt-[facility] 2nd Call: 07/31/2022 @ Reschedule : 1st Call: 07/24/2022 @ 1425 Called to prescreen for endoscopy - left message for patient to call back. SS06/03/20 22 @ 0924 Called and talked to the pt letting him know the new date and time. SS05/30/20 22 - Zahira requested pt moved to 07/25 - [id number] Call: 03/12/2022 @ 4295 Spoke with pt., scheduled. CFNovember 2021 EGD REPORT 08/05/2022 11:34 AM CRT POC GLUCOSE 08/05/2022 10:25 AM CRT TELEMETRY STRIPS-SCAN 08/05/2022 12:00 AM CRT from Last 3 Months Results * POC GLUCOSE (08/05/2022 12:02 PM CRT) Only the most recent of 2 results within the time period is included. Pathologist Signature Component Value Ref Test Method Analysis Performed A t Range Time Glucose, POC 76 70 - 100 08/05/2022 [facility] PA TH AND MG/DL 12:04 PM LAB MEDICINE POC CRT Anatomical Location / Laterality Collection Method / Volume Lindsey ection Time Received Time Specimen (Source) 08/05/2022 12:02 PM CRT 08/05/19 12:04 PM CRT Franco Cabrera MD OTHER LABORATORY City/State/ZIP Code Phone Number Performing Address [place] [address] [facility] DEPT PATH AND [address] [facility] LAB MEDICINE POC * SURGICAL PATHOLOGY (08/05/2022 11:48 AM [facility]) Pathologist Signature Component Value Ref Test Method Analysis Performed A t Range Time PATHOLOGY REPORT THE 08/06/2022 [facility] DEPT PA AND CRESSON 12:00 AM LAB MEDICINE OF [facility] [email or web address] Department of Pathology and Laboratory Medicine [address] [place] [address] Surgical Pathology Office: Fax: SURGICAL PATHOLOGY REPORT NAME: BOUBACAR JORDAN SURG PATH #: [id number] MR #: [id number] SPECIMEN CLASS: SR BILLING #: [id number] ALT ID #: LOCATION: GIENDO DATE OF PROCEDURE: 08/05/2022 AGE: 82 SEX: M DATE RECEIVED: 08/05/2022 : 1940 TIME RECEIVED: 12:08 PHYSICIAN: FRANCO PATEL DATE OF REPORT: 08/06/2022 COPY TO: DATE OF PRINTIN08/06/2022 ############ ############ ############ ############ ############ ############ Final Diagnosis: A. Squamocolumn ar junctional mucosa, "gastric biopsy h/o barretts", biopsy: Squamocolumn ar junctional mucosa with intestinal metaplasia, consistent with Oliva's esophagus. Negative for dysplasia and malignancy. B. Squamous mucosa, "distal esophageal biopsy h/o barretts", biopsy: Squamous epithelium with no diagnostic abnormalitie s. Attestation: By this signature, I attest that I have personally formulated the final interpretati on expressed in this report and that the above diagnosis is based upon my examination of the slides and/or other material indicated in this report. +++Archanai nohemy Signed Out By Radha Jaquez MD on 08/06/2022+++ ksw/ 3 ############ ############ ############ ############ ############ ############ Material Received: A: gastric biopsy h/o barretts B: distal esophageal biopsy h/o barretts History: 82-year-old male with history of Oliva's esophagus Gross Description: A. Received in formalin labeled "gastric cardia biopsies" is a 0.5 x 0.5 x 0.3 cm aggregate of patel-brown soft tissue fragments. The specimen is entirely submitted in A1. (tn) B. Received in formalin labeled "distal esophageal biopsies" is a 1.0 x 0.7 x 0.2 cm aggregate of patel-brown soft tissue fragments. The specimen is entirely submitted in B1. (tn) patel/08/05/2022 Anatomical Location / Laterality Collection Method / Volume Lindsey ection Time Received Time Specimen (Source) STOMACH STRUCTURE / Unknown 08/05/2022 11:48 AM CRT Tissue SPECIMEN FROM ESOPHAGUS / Unknown 08/05/2022 11: 48 AM CRT Tissue specimen (specimen) Franco Cabrera MD PATHOLOGY/CYTOLOGY ORDERABL ES City/State/ZIP Code Phone Number Performing [place] [address] [facility] AND [address] [facility] MEDICINE * EGD REPORT (08/05/2022 11:34 AM CRT) Pathologist Signature Component Value Ref Test Method Analysis Performed A t Range Time Provation Report Patient [facility] OTHER RESULTS Name: Ivan Hamlin Procedure Date: 08/05/2022 11:34 AM [facility]: [id number] Date of : 1940 Gender: Male Attending Physician: Franco Cabrera MD, [id number] Procedure: Upper GI endoscopy Indications: Follow-up of Oliva's esophagus. History of C1M3 Barretts in 2019, s/p multiple RFA treatments . Last EGD in 06/2021 without any BE seen Providers: Franco Cabrera MD (Doctor), Zay Kerns MD (Fellow), Que Luo (Fellow), Leta Matos (Nurse), Loyda Brumfield (Brick Paving Checker) Referring Physician: Igor Ballesteros Medications: Monitored Anesthesia Care Complication s: No immediate complication s. Procedure: Pre-Anesthes ia Assessment: - Prior to the procedure, a History and Physical was performed, and patient medications and allergies were reviewed. The patient's tolerance of previous anesthesia was also reviewed. The risks and benefits of the procedure and the sedation options and risks were discussed with the patient. All questions were answered, and informed consent was obtained. Prior Anticoagulan ts: The patient has taken Plavix (clopidogrel ), last dose was 5 days prior to procedure. ASA Grade Assessment: III - A patient with severe systemic disease. After reviewing the risks and benefits, the patient was deemed in satisfactory condition to undergo the procedure. - Prior Aspirin/ NSAID therapy: The patient has taken no aspirin or NSAID medications. After obtaining informed consent, the endoscope was passed under direct vision. Throughout the procedure, the patient's blood pressure, pulse, and oxygen saturations were monitored continuously . The Endoscope [id number] was introduced through the mouth, and advanced to the second part of duodenum. The upper GI endoscopy was accomplished without difficulty. The patient tolerated the procedure well. Findings: The Z-line was irregular and was found 36 cm from the incisors. No evidence of esophageal stricture The distal esophagus was examined with white light and NBI. No evidence of residual Oliva's esophagus was seen. We took 4 quadrant biopsies from the gastric cardia in a separate bottle, and then 4 quadrant biopsies from 1 cm and 2 cm from the GEJ. No gross lesions were noted in the entire examined stomach. No gross lesions were noted in the duodenal bulb, in the first portion of the duodenum and in the second portion of the duodenum. Impression: - Z-line irregular, 36 cm from the incisors. No evidence of esophageal stricture - The distal esophagus was examined with white light and NBI. No evidence of residual Oliva's esophagus was seen. We took 4 quadrant biopsies from the gastric cardia in a separate bottle, and then 4 quadrant biopsies from 1 cm and 2 cm from the GEJ. - No gross lesions in the entire stomach. - No gross lesions in the duodenal bulb, in the first portion of the duodenum and in the second portion of the duodenum. - No specimens collected. Estimated Blood Loss: Estimated blood loss: none. Recommendati on: - Patient has a contact number available for emergencie s. The signs and symptoms of potential delayed complication s were discussed with the patient. Return to normal activities tomorrow. Written discharge instructions were provided to the patient. - Resume previous diet. - Continue present medications. - Await pathology results. - Repeat EGD in 1 year Scope In: 11:43:34 AM Scope Out: 11:55:25 AM Total Procedure Duration Time 0 hours 11 minutes 51 seconds Procedure Code(s): --- Professional --- 21266, Esophagogast roduodenosco py, flexible, transoral; with biopsy, single or multiple 61072, Esophagogast roduodenosco py, flexible, transoral; diagnostic, including collection of specimen(s ) by brushing or washing, when performed (separate procedure) Diagnosis Code(s): --- Professional --- K22.89, Other specified disease of esophagus K22.70, Oliva's esophagus without dysplasia CPT copyright 2020 [employer]. All rights reserved. The codes documented in this report are preliminary and upon loan coordinator review may be revised to meet current compliance requirements . Attending Participatio n: I was present and participated during the entire procedure, including non-bagley portions. Franco Cabrera MD 08/05/2022 5:48:27 PM The attending physician has electronical ly signed and finalized this document. Zay Mohr MD Number of Addenda: 0 Note Initiated On: 08/05/2022 11:34 AM Anatomical Location / Laterality Collection Method / Volume Lindsey ection Time Received Time Specimen (Source) 08/05/2022 11:34 AM CRT Igor Ballesteros DO GI ENDOSCOPY ORDERABLES City/State/ZIP Code Phone Number Performing Address Organization [facility] OTHER RESULTS * TELEMETRY STRIPS-SCAN (08/05/2022 12:00 AM CRT) Narrative 08/05/2022 12:00 AM CRT Ordered by an unspecified provider. Scanned Document PROCEDURE DUMMY ORDERS from Last 3 Months Insurance Type Payer Benefit Subscriber ID Effective Phone Address Plan / Dates Group Medicare MEDICARE MEDICARE [id number] 2003- [phone] [address] AND Present [address] [place] [address] Medicare BCBS RADHA BCBS [id number] 2018-P [phone] [address] [place] [address] Care Teams Start Date End Date Pipe Smoking Machine Operator Relationship Specialty 06/07/21 Igor Ballesteros, PCP - General Internal [address] [facility] [address] [place] [address]
--- OUTSIDE RECORDS SUMMARY | 2022-10-16 15:07 | XMS REPORT | Encounter Summary ---
Author Organization Unknown Address [address] [place] [address] Phone [phone] Care Team Providers Care Hospice Manager Name Role Phone Jes Ballesteros DO 3 [phone] Jhonathan STOKES 3 [phone] Akhil Bailey MD 2 [phone] Reason for Visit None recorded. Instructions 1. Type 1 diabetes mellitus Discussion Note: None recorded. Patient educational handouts: No information available. Plan of Care Reminders Provider Appointments Diabetes Class 09/17/2022 9:00AM jones Lomax Follow up 20 11/12/2022 1 :40PM Ashwini Bose NP, S Lab None recorded. [...] solution Infuse 150 units daily via pump [place] 3 pantoprazole 40 mg tablet,delayed releas e [...] Address 08/13/2022 Hemoglobin a1C, Fingerstick Hgb 6.7% [facility]: [address], [place] Allergies Code Code System Name Reaction Severity [...] Smoker Past Encounters Encounter Date Diagnosis Provider 09/03/2022 Type 1 Diabetes Mellitus Shoshana Palomares, undefined: [address], [address], [place] [address], Ph. 08/13/2022 Type 1 Diabetes Mellitus; Ac quired Hypothyroidism; Mixed Hyperlipidemia; Long-term Current Use of Insulin Ashwini Bose NP, S: [address], [address], [place] [address], Ph. History of Present Illness None recorded. Review of Systems None recorded. Physical Exam None recorded.
--- NOTE | 2022-10-16 15:32 | Occupational Therapy Eval ---
OT Evaluation-General/PLF Medical Diagnosis Admission Date Oct 16, 2022 at 14:44 Medical Diagnosis: s/p cardiac arrest; DKA Onset Date: Oct 12, 2022 Therapy Diagnosis Therapy Diagnosis: decreased ADL status and functional activity tolerance. Height/Weight Height (Feet): 5 Height (Inches): 8.00 Weight (Pounds): 258 Weight (Ounces): 0.0 Precautions Precautions/Isolations: Fall Prevention, Standard Precautions Referral Physician: Quirino Referral Reason: Evaluation/Treatment Medical History Additional Medical History DM (insulin pump), CKD III, hypothyroidism, ALEXYS on CPAP, afib s/p watchman device, arthritis, CAD, prostate cancer, CHF Current History 10/12/22 admitted to [facility] due to cardiac arrest, emergently intubated due to acute respiratory failure and hypoxia, and found to be in severe DKA. 10/13 pt extubated. Pt transferred to [facility] 10/16. Social History Home: Single Level Current Living Status: Children Entry Into Home: Stairs Without Railing Steps Into Home: 2 Pt plans to discharge to his son's house. There are 2 steps to enter the house but son is planning on having rails installed. ADL-Prior Level of Function SCALE: Activities may be completed with or without assistive devices. 5-Gxzdxhvhoy-ilkeitc completes the activity by him/herself with no assistance from a helper. 5-Set-up or Clean-up Assistance-helper sets up or cleans up; patient completes activity. [place] assists only prior to or following the activity. 4-Supervision or Touching Assistance-helper provides verbal cues and/or touching/steadying and/or contact guard assistance as patient completes activity. Assistance may be provided throughout the activity or intermittently. 3-Partial/Moderate Assistance-helper does LESS THAN HALF the effort. [place] lifts, holds or supports trunk or limbs, but provides less than half the effort. 2-Substantial/Maximal Assistance-helper does MORE THAN HALF the effort. [place] l ifts or holds trunk or limbs and provides more than half the effort. 9-Silclglrz-qhmtgh does ALL the effort. Patient does none of the effort to complete the activity. Or, the assistance of 2 or more helpers is required for the patient to complete the activity. If activity was not attempted, code reason: 7-Patient Refused. 9-Not Applicable-not attempted and the patient did not perform the activity before the current illness, exacerbation or injury. 10-Not Attempted due to Environmental Limitations-(lack of equipment, weather restraints, etc.). 88-Not Attempted due to Medical Conditions or Safety Concerns. ADL PLOF Comments Pt reports IND with ADLs and functional mobility at PLOF, no AD. Pt owns a cane from when his mother was alive, but doesn't use the cane. Pt's son has a tub/shower, no SC, but indicates he can purchase a tub bench or shower chair if needed. Prior to admission, pt was living alone, managing all I/ADLS independently and driving. Self Care: Independent Functional Cognition: Independent DME/Equipment: Tub/Shower OT Current Status Subjective Pt arrived to ARU from OSH via transportation by son. Pain rating 3-4/10 in chest with UE activities due to recent CPR. Mental Status/Objective Patient Orientation: Person, Place, Time, Situation Current Glasses/Contacts: Yes Hearing Aids: Yes Hand Dominance: Right Upper Extremity ROM WFL, BUE shoulder flexion to approx 120 degrees, increased pain in chest due to recent cardiac arrest/CPR Upper Extremity Coordination WFL Upper Extremity Sensation WFL Upper Extremity Strength Shoulders not tested due to pain, Elbow flexion/extension 4/5. ADL-Treatment Eating (QC): 6 Oral Hygiene (QC): 4 (supervision) Shower/Bathe Self (QC): 4 (SBA) Upper Body Dressing (QC): 5 Lower Body Dressing (QC): 4 (SBA) On/Off Footwear (QC): 6 Toileting Hygiene (QC): 4 (SBA) Other Treatments OT evaluation complete. OT/PT cotreat due to skill of 2 clinicians required which a rehab director could not perform in order to coordinate UE/LEs, decrease fall risk, and due to pt's limitations in strength, activity tolerance, pain with activity, and mobility/transfers. OT focused on ADLS, UE placement, cues for sequencing and safety. PT focused on LE placement, gross overall movement, transfers and mobility. Pt completed functional mobility and transfers using FWW, including mobility on even and uneven surfaces, car transfer, bed mobility, stairs. Pt demo'd ability to doff/don socks and shoes, IND. Pt declined further ADLs as he had a shower at OSH today prior to admission to ARU. Pt provided information on level of assistance required with ADLS. In order to increase BUE Strength, activity tolerance, and standing tolerance, pt completed UE reaching task, completing nut/bolt block. Pt removed nuts/bolts from block, manipulated in his hand, then placed items back onto wooden block. Pt able to complete x15 before requiring seated rest break. Pt performed functional mobility in hallways and around ARU common area using FWW. Pt returned to his room, transferring to recliner. Pt educated on rehab process and ARU expectations, he verbalized understanding. Post tx, pt in recliner, call light in reach and all needs met. SBA supine to/from sit, CGA sit to/from stand, min A car transfers. Occasional cues required for UE placement and safety. Functional mobility 200' with FWW, SBA-CGA, requiring occasional steadying assistance. Education OT Patient Education: Correct positioning, Energy conservation, Modified ADL techniques, Progress toward Goal/Update tx plan, Purpose of tx/functional ac tivities, Rehab process Teaching Recipient: Patient Teaching Methods: Discussion Response to Teaching: Verbalize Understanding BIMS CAM BIMS Expression of Ideas and Wants: Without Difficulty Understanding Verbal Content: Understands Brief Interview/Mental Status: Yes IRF MESHA BIMS: IRF MESHA BIMS Response (Comments) Value Repitition of Three Words Three 3 Recalls Socks Yes, No Cue Required 2 Recalls Blue Yes, After Cueing (Color) 1 Recalls Bed No, Could Not Recall 0 Year Correct 3 Month Accurate Within 5 Days 2 Day Correct 1 Total 12 Should Staff Asses. Mental St.: No CAM Mental Status Change/Baseline: 0 Inattention: 0 Disorganized thinkin Altered level of consciousness: 0 OT Short Term Goals Short Term Goals Time Frame: Oct 24, 2022 Shower/bathe self: 5 Lower body dressin OT Gauge And Weigh Machine Operator Goals Gauge And Weigh Machine Operator Goals Time Frame: Oct 31, 2022 Eating (QC): 6 Oral Hygiene (QC): 6 Toileting Hygiene (QC): 6 Shower/Bathe Self (QC): 6 Upper Body Dressing (QC): 6 Lower Body Dressing (QC): 6 On/Off Footwear (QC): 6 Additional Goals: 1-Demonstrate ADL Tasks, 2-Verbalize Understanding, 3- ImproveStrength/Tony 1=Demonstrate adherence to instructed precautions during ADL tasks. 2=Patient will verbalize/demonstrate understanding of assistive devices/modifications for ADL. 3=Patient will improve strength/tolerance for activity to enable patient to perform ADL's. OT Education/Plan Problem List/Assessment Assessment: Decreased Activ Tolerance, Decreased UE Strength, Impaired Funct Balance, Impaired I ADL's Discharge Recommendations Plan/Recommendations: Continue POC Treatment Plan/Plan of Care Patient would benefit from OT for education, treatment and training to promote independence in ADL's, mobility, safety and/or upper extremity function for ADL's. Plan of Care: ADL Retraining, Functional Mobility, Group Exercise/Act as Ind, UE Funct Exercise/Act Treatment Duration: Oct 31, 2022 Frequency: At least 5 of 7 days/Wk (IRF) Estimated Hrs Per Day: 1.5 hours per day Agreement: Yes Rehab Potential: Good Time Start Time: 14:45 Stop Time: 16:15 DATE: Oct 16, 2022 Total Time Billed (hr/min): 90 Billed Treatment Time [id number] OT eval (10'), Cotreat [id number] (80') 1, EVL (10'), ADL (15'), FA 4 (65') SARAH GAMBOA OT Oct 16, 2022 15:32
--- NOTE | 2022-10-16 16:03 | Physical Therapy Evaluation ---
PT Evaluation-General Medical Diagnosis Admission Date Oct 16, 2022 at 14:44 Medical Diagnosis: s/p cardiac arrest; DKA Onset Date: Oct 12, 2022 Therapy Diagnosis Therapy Diagnosis: impaired mobility Height/Weight Height (Feet): 5 Height (Inches): 8.00 Weight (Pounds): 258 Weight (Ounces): 0.0 Precautions Precautions/Isolations: Fall Prevention, Standard Precautions Referral Physician: Genna Win DO Reason for Referral: Evaluation/Treatment Medical History Additional Medical History DM (insulin pump), CKD III, hypothyroidism, ALEXYS on CPAP, afib s/p watchman device, arthritis, CAD, prostate cancer, CHF Reviewed History: Yes Social History Home: Single Level Current Living Status: Children Entry Into Home: Stairs Without Railing PT Steps Into Home: 2 Prior Prior Level of Function SCALE: Activities may be completed with or without assistive devices. 8-Bjgfsphxmd-whrehbd completes the activity by him/herself with no assistance from a helper. 5-Set-up or Clean-up Assistance-helper sets up or cleans up; patient completes activity. [place] assists only prior to or following the activity. 4-Supervision or Touching Assistance-helper provides verbal cues and/or touching/steadying and/or contact guard assistance as patient completes activity. Assistance may be provided throughout the activity or intermittently. 3-Partial/Moderate Assistance-helper does LESS THAN HALF the effort. [place] lifts, holds or supports trunk or limbs, but provides less than half the effort. 2-Substantial/Maximal Assistance-helper does MORE THAN HALF the effort. [place] lifts or holds trunk or limbs and provides more than half the effort. 4-Aypgdasls-lgqvwm does ALL the effort. Patient does none of the effort to complete the activity. Or, the assistance of 2 or more helpers is required for the patient to complete the activity. If activity was not attempted, code reason: 7-Patient Refused. 9-Not Applicable-not attempted and the patient did not perform the activity before the current illness, exacerbation or injury. 10-Not Attempted due to Environmental Limitations-(lack of equipment, weather restraints, etc.). 88-Not Attempted due to Medical Conditions or Safety Concerns. Bed Mobility: 6 Transfers (B,C,W/C): 6 Gait: 6 Stairs: 6 Indoor Mobility (Ambulation): Independent Stairs: Independent PT Evaluation-Current Subjective Patient comes by family vehicle, has no complaints of pain other than occasional pain from a fractured rib, agrees to PT. Will be co-treating with OT due to poor patient mobility, strength, endurance, severe debility, coordinate UE and LE during activity, safety and reduce risk of falls. Pain Section J - Health Conditions 1. Rarely or not at all 2. Occasionally 3. Frequently 4. Almost constantly 8. Unable to answer Pain Effect on Sleep: 1 Pain Interference with Therapy: 1 Pain Interference w/Day-to-Day: 1 Pt/Family Goals to be independent at home Objective Patient Orientation: Person, Place, Situation ROM/Strength ROM Lower Extremities WNL Strength Lower Extremities LLE (hip flexion 3+/5, knee flexion 4+/5, knee extension 4+/5, dorsiflexion 5/5), RLE (hip flexion 3+/5, knee flexion 4+/5, knee extension 4+/5, dorsiflexion 5/5) Sensory Vision: Wears Glasses Hearing: Hearing Aid/Aides Hand Dominance: Right Sensation Right Lower Extremit: Intact Sensation Left Lower Extremity: Intact Transfers Roll Left & Right (QC): 4 Sit to Lying (QC): 4 Lying to Sitting/Side of Bed(Q: 4 Sit to Stand (QC): 4 Chair/Fuo-wd-Mjmje Xfer(QC): 4 Toilet Transfer (QC): 4 Car Transfer (QC): 3 Patient performs rolling and supine <-> sit with SBA, sit <-> stand and transfers CGA, car transfer min assist. Patient needs occasional cues for hand placement and safety, patient sometimes gets a little light headed initially after standing, he knows to stand for a bit and let it pass before moving. Gait Does the Patient Walk?: Yes Mode of Locomotion: Walk Anticipated Mode of Locomotion: Walk Walk 10 feet (QC): 4 Walk 50 ft with 2 Turns(QC): 4 Walk 150 ft (QC): 4 Walking 10ft/uneven surface-QC: 4 Distance: 200', 150'x3 Gait Assistive Device: FWW Comments/Gait Description Patient can ambulate 200' with a rolling walker with CGA (including 50' with at least 2 turns of 90 degrees and 10' over an uneven surface), gait is very slow, is sometimes unsteady, needs steadying assist Wheelchair Training Wheel 50 ft with 2 turns (QC): 9 Wheel 150 ft (QC): 9 Stairs #of Steps: 4 1 Step (curb) (QC): 4 4 Steps (QC): 4 12 Steps (QC): 88 Patient can go up and down 4 steps using 2 handrails with CGA, cues for safety Balance Sitting Static: Normal Sitting Dynamic: Normal Standing Static: Fair Standing Dynamic: Poor Picking up an Object (QC): 4 (CGA using a shareholder) Treatment Patient also performed an UE activity while standing to work on LE strength and endurance. PT performed bed mobility and transfers, ambulation, stair training, standing activity, OT performed UE activity, dressing, UE positioning and safety during activity. Assessment/Needs Patient in recliner post tx with nurse call, phone, tray, all needs met. Patient has impaired mobility, strength, endurance. Mostly needs CGA for transfers and ambulation. Rehab Potential: Fair PT Lecturer In Computer Science Goals Lecturer In Computer Science Goals PT Lecturer In Computer Science Goals Time Frame: Oct 30, 2022 Roll Left to Right (QC): 6 Sit to Lying (QC): 6 Lying-Sitting on Side/Bed(QC): 6 Sit to Stand (QC): 6 Chair/Pjy-vl-Mgxzv Xfer(QC): 6 Toilet/Commode Transfer (QC): 6 Car Transfer (QC): 6 Does the Patient Walk: Yes Walk 10 feet (QC): 6 Walk 10ft-Uneven Surface(QC): 6 Walk 50ft with 2 Turns (QC): 6 Walk 150 ft (QC): 6 Wheel 50 feet with 2 turns (QC: 9 Wheel 150 feet: 9 1 Step (curb) (QC): 4 (SBA) 4 Steps (QC): 4 (SBA) 12 Steps (QC): 4 (SBA) Picking up an Object (QC): 6 PT Plan Problem List Problem List: Activity Tolerance, Functional Strength, Safety, Balance, Gait, Transfer, Bed Mobility, ROM Treatment/Plan Treatment Plan: Continue Plan of Care Treatment Plan: Bed Mobility, Education, Functional Activity Tony, Functional Strength, Group Therapy, Gait, Safety, Therapeutic Exercise, Transfers Treatment Duration: Oct 30, 2022 Frequency: At least 5 of 7 days/Wk (IRF) Estimated Hrs Per Day: 1.5 hours per day Patient and/or Family Agrees t: Yes Safety Risks/Education Patient Education: Gait Training, Transfer Techniques, Steps, Correct Positioning, Safety Issues Teaching Recipient: Patient Teaching Methods: Demonstration, Discussion Response to Teaching: Reinforcement Needed Discharge Recommendations Plan Patient will perform bed mobility and transfer training, balance and endurance training functional strengthening, stair training, gait training, and education, to improve functional mobility and independence at home. Therapy Discharge Recommendati: Home & Family, Post Acute PT Time Time In: 1435 Time Out: 1615 DATE: Oct 16, 2022 Total Billed Treatment Time: 90 Total Billed Treatment 1 visit EVL 10' FA 80' PT eval from [id number], OT eval from [id number], co-treat from [id number] NILAM GARBER PT Oct 16, 2022 16:03
[2022-10-16] MEDS ORDERED: FAMOTIDINE 20 MG (PEPCID) TABLET PO PRN (17:45)
[2022-10-16] MEDS ORDERED: FLUORIDE DT SCH (17:45)
[2022-10-16] MEDS ORDERED: RT-ALBUTEROL SULF 2.5 MG/3 ML PRE-MIX VIAL INH PRN (17:45)
[2022-10-16] MEDS ORDERED: NITROGLYCERIN 0.4 MG SL TABS BTL 25'S SL PRN (17:45)
[2022-10-16] MEDS ORDERED: NON-FORMULARY MEDICATION 1 EA EA (Simethicone 125 MG) PO PRN (17:45)
[2022-10-16] MEDS ORDERED: ACETAMINOPHEN 500 MG TAB (TYLENOL) PO PRN (17:45)
[2022-10-16] MEDS ORDERED: [UNRECOGNIZED DRUG - REMARK] MM PRN (17:45)
[2022-10-16] MEDS ORDERED: DEXTROSE PO PRN (17:45)
[2022-10-16] MEDS ORDERED: NALOXONE HCL NS PRN (17:45)
[2022-10-16] MEDS ORDERED: GLUCAGON EMERGENCY 1 MG/KIT IM PRN (17:45)
[2022-10-16] MEDS ORDERED: inSUlin ASPART (NovoLOG) 1 UNIT/0.01 ML (CHARGE PER UNIT) SQ SCH (17:45)
[2022-10-16] MEDS ORDERED: SILDENAFIL CITRATE 50 MG PO SCH (17:45)
[2022-10-16] MEDS ORDERED: DOFETILIDE 125 MCG (TIKOSYN) CAPSULE PO SCH (17:45)
[2022-10-16] MEDS ORDERED: [UNRECOGNIZED DRUG - OTHER] PO PRN (17:45)
--- NOTE | 2022-10-16 17:48 | PM&R Post Admission Assessment ---
PM&R HP Date of Visit: Oct 16, 2022 Time of Visit: 18:30 History of Present Illness CC: Debility following bradycardic cardiac arrest due to hyperkalemia of 7 in DKA HPI: This is an 82yoWM clinic patient of Dr Igor Ballesteros who is co-managed by Dr Bailey and Dr Moore Cardiology and Nephrology and Pulmonology who presents to the ARU following a critical illness which started at [facility] ER with AMS and DKA with hyperkalemia causing cardiac arrest s/p ROSC in 2 minutes who had a short course at [facility] from 10/12/22 relatively speaking after extubation and resolution of DKA. He has a h/o AF w/p Watchman device. He was recently started on biPAP after CPAP with O2 was not adequate so biPAP will be set up here at [facility]. Currently he is weak and needs aggressive rehab prior to DC to his son's home to finish recovery. He has an insulin pump and will manage that during his sty here. [facility] DC note: Acute respiratory failure 10/16/2022 Bradycardic cardiac arrest 10/16/2022 Hyperkalemia 10/16/2022 Type 1 diabetes mellitus with ketoacidotic coma 10/16/2022 Hospital Course Summary Chief Complaint- cardiac arrest HPI:Per intensivistBoubacar Hendricks a 82 y.o.malewith a PMH of IDDM on insulin pump, CKDIII, hypothyroidism, ALEXYS on CPAP, A-fib s/p Watchman devicewas admitted 10/12/2022to ICU s/p cardiac arrest. Patient presented to [facility] via med flight from [facility] s/p cardiac arrest. Patient was found to be in severe DKA with K greater than 7 at OSH. He was noted to go into cardiac arrest prior to flight out of OSH ER, ROSC in 2 minutes. He was medically treated for hyperkalemia before leaving OSH. In the ED here, ECG revealed wide QRS with peaked T waves. K7.0. Patient was given additional calcium gluconate, bicarb, Lokelma, continuous albuterol, insulin/glucose. Nephrology was consulted in ED. DKA protocol was started and patient was admitted to ICU for further management Patient arrived to ICU hemodynamically stable on mechanical ventilation. He was reaching for the tube and able to follow commands (squeeze fingers, wiggle toes). Left pupil fixed and dilated. Discussed goals of care with patient's family at bedside, patient is now DNR. Family states patient has an insulin pump and notes that insulin pump needle was completely bent and not infusing. Family is unclear of DESIGN TECHNOLOGY PROFESSOR meds, but does note that patient is on a blood thinner. Plan for stat CT head when metabolically stable. Of note, right IJ CVC placed given cardiac arrest and serial labs. 10/13- extubated Treating hyperkalemia, and acute renal failure in ICU. Cards consulted. Troponin elevation likely demand ischemia. 10/14- Stable for transfer to floor. Creatinine down to 1.5. Potassium 3.4, phosphate-1.7. Tmax 100.9. Ceftriaxone started yesterday- CXR without infiltrate. Blood cultures pending Pt is slow with speech and having memory deficits. R arm weakness likely 2/[address] head from 10/13 unremarkable. Pt feel dyspneic. States his cardiac arrest occurred while in ER which he originally went to because of weakness with standing. Had swallow study today- report pending, but nurse states he did well. Glucose level of 76 at 2 PM- D5 started. Off insulin dripo and long acting given. To restart insulin pump when patient more alert. Per family, the insulin pump works just fine, however, the needle was "bent" so that's why he was not getting insulin before admission. Per daughter before cardiac arrest, his mind was sharp and he was driving, and able to take care of himself. 10/15- poor blood sugar control- anion gap, which resolved later today. VBG non- acidotic. Increased insulin. To restart tikosyn today- Qtc looks good. Hopefully home tomorrow. Mentation much improved. 10/16-stable for discharge. By placing patient back on insulin pump, glucose at time of discharge was 230,much improved, and anticipated to continue decreasing. I feel that his DKA was secondary to improper needle placement before admission. EKG QTc stable back on Tikosyn. Concerning cardiology medications, discharged him on the medications that he was started on in the ICU. Follow-up with marketing trainee, Dr. Bailey. Discharge instructions medications and follow-up discussed with patient and rehab patient voiced understanding and patient was discharged in stable condition. Discharge medications and new prescriptions: Medication List START taking these medications tzwogvv18 mg Tablet, Chewable Commonly known as: ENEDELIA CHEWABLE Take 1 Tablet (81 mg) by mouth daily with breakfast. Start taking on: October 17, 2022 Signed by: Dr. Arely Dejesus MD Refills: 0 carvediloL3.125 mg tablet Commonly known as: COREG Take 1 Tablet (3.125 mg) by mouth every 12 hours. Signed by: Dr. Arely Dejesus MD Quantity: 60 Tablet Refills: 0 CHANGE how you take these medications unlkulspzi48 mg tablet Commonly known as: LASIX What changed: ? medication strength ? how much to take ? how to take this ? when to take this ? additional instructions Take 1 Tablet (20 mg) by mouth every other day. Start taking on: October 17, 2022 Signed by: Dr. Arely Dejesus MD Refills: 0 nitroglycerin0.4 mg Tablet, Sublingual Commonly known as: NITROSTAT What changed: Another medication with the same name was removed. Continue taking this medication, and follow the directions you see here. Place 0.4 mg under tongue every 5 minutes as needed for Chest Pain. Refills: 0 polyethylene glycol [id number] gram/dose Powder Commonly known as: MIRALAX What changed: Another medication with the same name was removed. Continue taking this medication, and follow the directions you see here. Take 17 Gram by mouth daily Dissolve in 8 ounces of fluid and drink entire l iquid . Refills: 0 timoloL maleate0.5% solution Commonly known as: TIMOPTIC What changed: Another medication with the same name was removed. Continue taking this medication, and follow the directions you see here. Administer 1 Drop in left eye 2 times daily. Refills: 0 CONTINUE taking these medications jrvrvyqtzhwra539 mg tablet Commonly known as: TYLENOL Take 500 mg by mouth every 6 hours as needed. Refills: 0 albuterol mcg/Actuation inhaler Take 2 Puffs by inhalation every 6 hours as needed for Shortness of Breath. Refills: 0 artificial tears(hypromellose)0.5 % solution INSTILL ONE DROP IN BOTH EYES FOUR TIMES A DAY FOR DRY EYES. Refills: 0 betamethasone dipropionate0.05 % Cream Commonly known as: DIPROSONE APPLY 1-2 GRAMS TOPICALLY TWICE DAILY Refills: 0 BIOTENE ORALBALANCE (GLYCERIN) MM by Mucous Membrane route. 1/2 in on tongue as needed Refills: 0 brimonidine0.2 % solution Commonly known as: ALPHAGAN INSTILL 1 DROP IN LEFT EYE TWO TIMES A DAY FOR GLAUCOMA USE IN PLACE OF TIMOLOL Refills: 0 budesonide0.5 mg/2 mL Suspension for Nebulization Commonly known as: PULMICORT RESPULE USE 1 VIAL IN NEBULIZER TWICE DAILY Refills: 0 jnecnhzkdo-bgxxzgfakY304-0.5 mcg/actuation HFA Aerosol Inhaler Commonly known as: SYMBICORT Take 2 Puffs by inhalation 2 times daily. Refills: 0 iniuyoosyyM78 mg Tablet Commonly known as: PLAVIX Take 1 Tablet (75 mg) by mouth daily. Signed by: Dr. Akhil Bailey MD Quantity: 90 Tablet Refills: 3 cpapmedical device Bipap cwp with heated humidifier. Length of need:99 months; full face mask with headgear every 6 months; mask only every 3 months; 1 cushions per month; Tubing heated 1 every 3 months, water chamber 1 every 6 months, chin strap 1 every 6 months, filters disposable 2 per month, filters reusable 1 per 6 months. Resmed if possible; [facility] [place] - Signed by: REGI Kendrick Quantity: 1 Each Refills: 0 desonide0.05 % Cream Commonly known as: TRIDESILON Apply to affected area 2 times daily. Refills: 0 diclofenac sodium1 % gel Commonly known as: VOLTAREN APPLY 2 GRAMS AFFECTED AREA FOUR TIMES A DAY APPLY 2 GM (2 and 1/4 INCHES MEASUR ED ON DOSING CARD INCLUDED) TO PAIN AREA DIRECTED -NOTE: ONLY 1% GEL IS APPROVED FOR PAIN USE -MUE CRITERIA MET APPLY 2 GM (2 and 1/4 INCHES MEASURED ON DOSING CARD INCLUDED) TO PAIN AREA DIRECTED -NOTE: ONLY 1% GEL IS APPROVED FOR PAIN USE -MUE CRITERIA MET Refills: 0 docusate kiehlz121 mg capsule Commonly known as: COLACE Colace 100 mg capsule TAKE 1 CAPSULE (100 MG) BY ORAL ROUTE ONCE DAILY AT BEDTIME NEEDED Refills: 0 nravvxvhzf308 mcg capsule Commonly known as: TIKOSYN Take 1 Capsule (125 mcg) by mouth every 12 hours. Signed by: Dr. Nahun Moore MD Quantity: 180 Capsule Refills: 1 enalapril5 mg tablet Commonly known as: VASOTEC 5 mg. Refills: 0 qmphagrrwm59 mg tablet Commonly known as: PEPCID Take 1 Tablet (20 mg) by mouth 2 times daily as needed (gerd). Signed by: Pearl Chan NP Quantity: 180 Tablet Refills: 2 fluticasone aowzxzv-riijpdziwQ000-74 mcg/dose disk inhaler Commonly known as: ADVAIR DISKUS,WIXELA INHUB Take by inhalation. Refills: 0 ccpaorqzeb48 mg/mL Solution Commonly known as: GARAMYCIN USE 4 ML BOTH NOSTRILS TWO TIMES A DAY DIRECTED EMPTY ONE VIAL OF GENTAMICIN INTO RINSE BOTTLE. SPRAY HALF INTO EACH NOSTRIL TWICE DAILY UNTIL OUT OF MEDICATION. ORDERED BY SUDHEER VYAS. EMPTY ONE VIAL OF GENTAMICIN INTO RINSE BOTTLE. SPRAY HALF INTO EACH NOSTRIL TWICE DAILY UNTIL OUT OF MEDICATION. ORDERED BY SUDHEER VYAS. Refills: 0 glucagon human recombinant1 mg/mL Recon Soln Commonly known as: GLUCAGEN glucagon (human recombinant) 1 mg solution for injection Take as directed for unconscious low blood sugars. Refills: 0 glucose4 gram Tablet, Chewable CHEW TWO TABLETS BY MOUTH DIRECTED BY PROVIDER -WHEN NEEDED FOR LOW BLOOD GLUCOSE Refills: 0 HDVPBpwzsge-mmyytdmgtqkla8-356 mg tablet Commonly known as: NORCO Take 1 Tablet by mouth every 4 hours as needed for Pain. Max Daily Amount: 6 Tablets Signed by: Dr. Hi Dhillon MD Quantity: 10 Tablet Refills: 0 insulin aspart [id number] unit/mL vial Commonly known as: NovoLOG Novolog U-100 Insulin aspart 100 unit/mL subcutaneous solution Infuse 150 units daily via pump Refills: 0 Insulin Pump CartridgeCartridge Inject 1 Each by subcutaneous injection. Refills: 0 IRON 100 PLUS ORAL iron Refills: 0 lactoperoxi-gluc oxid-pot thioGel Commonly known as: BIOTENE Take by mouth 1/2 inch on tongue PRN . Refills: 0 oohjkjygskucn04 mcg tablet Commonly known as: SYNTHROID Take 50 mcg by mouth daily. Refills: 0 naloxone4 mg/spray [place], Non-Aerosol Commonly known as: NARCAN EMERGENCY USE ONLY: Administer 1 spray (4 mg) in one nostril one time. May repeat in alternating nostrils every 2-3 min until responsive or EMS arrives. Signed by: Dr. Porsha Logan MD Quantity: 2 Each Refills: 3 NEILMED PEDIATRIC SINUS RINSE BOTH NOSTRIL by Irrigation route 2 times daily. Refills: 0 zktnlyuvwnjjt99 mg capsule Commonly known as: PAMELOR Take 150 mg by mouth late in the day. Refills: 0 Nqsqq-0-FTS-EPA-Fish Oil1,200 (144-216) mg Capsule Take 1 Tablet by mouth daily. Refills: 0 olwcexckhixh94 mg Tablet, Delayed Release (E.C.) Commonly known as: PROTONIX Take 1 Tablet (40 mg) by mouth daily. Signed by: Pearl Chan NP Quantity: 90 Tablet Refills: 2 potassium nhxtysop88 mEq Extended Release tablet Commonly known as: KLOR-CON Take 10 mEq by mouth daily. Refills: 0 MULTI ORAL Take 1 Tablet by mouth daily. Refills: 0 mzohauyfkynz98 mg tablet Commonly known as: CRESTOR Take 40 mg by mouth daily at bedtime. Refills: 0 sennosides-docusate sodium8.6-50 mg tablet Commonly known as: SENNA-S TAKE 1 TABLET BY MOUTH ONCE A DAY Refills: 0 loddsluzuY46 mg tablet Commonly known as: VIAGRA Take 50 mg by mouth every other day. Refills: 0 hwjbrenndtb455 mg Tablet, Chewable Take 125 mg by mouth. Refills: 0 sodium fluoride (dental gel)1.1 % Gel Commonly known as: THERA-FLUR by dental route. Refills: 0 terazosin1 mg capsule Commonly known as: HYTRIN Take 1 mg by mouth late in the day. Refills: 0 STOP taking these medications uesukwFZD452 mg Extended Release capsule Commonly known as: DILACOR XR escitalopram gdjkyyd48 mg tablet Commonly known as: LEXAPRO nblrzqvubygpw147 mcg Powder in Packet You also have another medication with the same name that you need to continue taking as instructed. tngprpqxigcgwg29 mg tablet Commonly known as: ALDACTONE qzzGZUyO99 mg tablet Commonly known as: ULTRAM Where to Get Your Medications These medications were sent to [facility], [place] - [address] [place] [id number] Information about where to get these medications is not yet available ? aspirin 81 mg Tablet, Chewable ? furosemide 20 mg tablet Consultants: IP CONSULT TO NEPHROLOGY IP CONSULT TO CASE MANAGEMENT Procedures performed: ? 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: [id number] : 1940 Requested By: Order Number: [id number] [place] MD: Measurements Intervals Aubrey Rate: 92 P: -2 VT: 190 QRS: -36 QRSD: 100 T: 66 QT: 368 QTc: 455 Interpretive Statements Sinus rhythm with premature atrial complexes Left axis deviation Left ventricular hypertrophy with repolarization abnormality Possible Lateral infarct, age undetermined Abnormal ECG Results for orders placed or performed during the hospital encounter of 07/14/22 ECHO TRANSESOPHAGEAL WO DOPPLER Narrative TRANSESOPHAGEAL ECHOCARDIOGRAM REPORT REASON FOR EXAM: Atrial fibrillation status post watchman device PROCEDURE NOTE: The patient was brought to the transesophageal echo laboratory after informed consent was obtained. The patient was seen by Anesthesia for MAC anesthesia. The transesophageal probe was introduced into the posterior pharynx and esophagus without difficulty. The patient tolerated the procedure well with no immediate postprocedure complications. Interpretation: The left atrium was dilated. Status post Watchman device placement. The device appears well seated with no appreciable jack-device leak. No thrombus visualized. 3D images of the device were obtained. Interatrial septum appeared to be intact, confirmed by color flow interrogation. No significant pericardial effusion. Of note it was difficult to place the transesophageal probe. A glide scope was used for better visualization of anatomical landmarks. Results for orders placed or performed in visit on 06/23/19 ECHO COMPLETE Narrative DATE: 06/23/2019 CLINICAL HISTORY: A 78-year-old with coronary artery disease, hypertension, paroxysmal atrial fibrillation. 2-Dimensional Images: Study was technically adequate for review. On M-mode Assessment, the LV chamber size and wall thickness appear to be within normal limits. Left atrium is enlarged at 4.9 cm. Right heart chambers appear normal in size. LV systolic function is normal with ejection fraction estimated to be 60%. No severe regional wall motion abnormalities are appreciated. The mitral annulus is calcified. The aortic valve is sclerotic. Right heart valves are anatomically normal. There is no pericardial effusion. No intracardiac thrombi are present. The aortic root is normal in diameter at 3.3 cm. Ascending aorta is 3.3 cm in diameter. Doppler Examination: On color flow exam, there is mild mitral regurgitation, mild tricuspid regurgitation, mild pulmonic insufficiency and mild aortic insufficiency. The calculated RV systolic pressure from the TR jet is within normal limits. Flow velocities across the mitral valve are consistent with diastolic dysfunction. Flow velocities across the aortic valve are normal. Impression : 1. Normal left ventricular size and systolic function. Overall ejection fraction is estimated to be normal at 60%. 2. Diastolic dysfunction. 3. Mitral annular calcification with mild mitral regurgitation and left atrial enlargement. 4. Aortic valve sclerosis with mild aortic insufficiency. There is no evidence of aortic stenosis. 5. Mild tricuspid regurgitation with normal calculated RV systolic pressure. 6. Mild pulmonic insufficiency. LUIZ/armand - transcribed in [facility] - XR ABDOMEN FOR FEEDING TUBE 1 VW Result Date: 10/12/2022 XR ABDOMEN FOR FEEDING TUBE 1 VW DATE: 10/12/2022 7:22 PM CLINICAL INDICATION: Check Tube Placement. COMPARISON: Chest radiograph January 12, 2018. Chest radiograph October 12, 2022. TECHNIQUE: AP portable upright view of the upper abdomen. FINDINGS: Gastric tube is well-positioned within the stomach. Stomach appears mildly distended with gas. No dilated loops of small or large bowel. IMPRESSION: Gastric tube is well positioned within the stomach. Dictation location: [address] [place] [address] XR CHEST PA OR AP 1 VW Result Date: 10/14/2022 XR CHEST PA OR AP 1 VW DATE: 10/14/2022 5:29 PM CLINICAL INDICATION: Other - Please see comments, Comment: hypoxia. COMPARISON: Chest radiograph October 12, 2022. TECHNIQUE: AP portable upright chest radiograph. FINDINGS: Interval extubation. Heart size is normal. Median sternotomy wires are noted. No focal airspace consolidation. No pneumothorax or pleural effusion or pulmonary edema. IMPRESSION: No acute cardiopulmonary abnormality. Dictation location: [address] [place] [address] XR CHEST PA OR AP 1 VW Result Date: 10/13/2022 EXAM: CHEST RADIOGRAPH 10/12/2022 8:39 PM HISTORY: 82-year-old male; line placement. TECHNIQUE: AP upright COMPARISON: Radiograph earlier today FINDINGS: Support Devices: Endotracheal tube and enteric tube. The enteric tube has been advanced, and the tip and sidehole are now well below the esophagogastric junction. Normal heart size postop CABG. Calcified, tortuous aorta. Normal pulmonary vessels. A slightly deeper inspiration has been recorded compared to the earlier exam. Minimal left basilar subsegmental atelectasis. Right rib fracture deformity. IMPRESSION: * The enteric tube has been advanced, and its tip and sidehole are now well below the esophagogastric junction, appropriately positioned. * A slightly deeper inspiration has been recorded, and there is now only minimal left basilar subsegmental atelectasis. The right lung is clear. DR Location 11 XR CHEST PA OR AP 1 VW Result Date: 10/12/2022 XR CHEST PA OR AP 1 VW DATE: 10/12/2022 5:46 PM CLINICAL INDICATION: Altered Mental Status. COMPARISON: Chest radiograph September 07, 2022. TECHNIQUE: AP supine chest radiograph. FINDINGS: Endotracheal tube is well-positioned to 5 cm above the leticia. Gastric tube tip enters the stomach, but the proximal side port is above the gastroesophageal junction. Recommend advancement of nasogastric tube approximately 8 cm. Heart size is normal. Median sternotomy wires are noted. Lung volumes are low. This results in some mild central atelectasis. No pneumothorax or pleural effusion or pulmonary edema. IMPRESSION: 1. Lines and tubes as described. Recommend advancement of gastric tube approximately 8 cm. 2. Low lung volumes with some mild basilar atelectasis. Dictation location: , [place], [place] CT HEAD WO CONTRAST Result Date: 10/13/2022 EXAM: HEAD CT WITHOUT IV CONTRAST 10/12/2022 10:11 PM HISTORY: 82-year-old ma le; mental status change. TECHNIQUE: Volumetric images are obtained from the foramen magnum to the vertex without intravenous contrast medium. In accordance with CT protocols and the ALARA principle, radiation dose reduction techniques were utilized for this examination. COMPARISON: CT 09/22/2022 FINDINGS: Intracranial Contents: There is no evidence of hemorrhage, edema or transc ortical infarction. No evidence of mass or mass effect. Generalized cerebral volume loss with proportionate ventricular size. The ventricles are symmetrical and there is no midline shift. Decreased attenuation in the bilateral periventricular white matter. Intracranial atherosclerosis. Orbits: Bilateral lens replacements. Left scleral buckle. Paranasal sinuses: Mucosal thickening a nd spumous material in the paranasal sinuses. Mastoid sinuses: Unremarkable Bones and Extracranial Soft Tissues: Calvarium and skull base are intact. IMPRESSION: * No acute intracranial abnormality. * Senescent changes. * Mixed acute and chronic paranasal sinusitis. * A preliminary report was previously made available. DR Location 11 CT HEAD WO CONTRAST Result Date: 09/23/2022 CT HEAD WO CONTRAST Ordering provider: EHSAN STAPLES History: See Reason for Exam. Head trauma, minor (Age >= 65y). Comparison: 01/21/2022 Technique: CT of the head without contrast. Iterative reconstruction technique utilized. FINDINGS: BRAIN PARENCHYMA AND CSF SPACES: Mild leukoaraiosis and diffuse cortical atrophy. No midline shift, mass effect or hemorrhage. Normal ventricles. VISUALIZED PARANASAL SINUSES: Well aerated. MASTOIDS: Clear. BONES: Intact. SOFT TISSUES: Superficial soft tissues are normal. IMPRESSION: * No acute intracranial findings. Preliminary report given by [facility]. Note: If desired, the [facility] report can be viewed by clicking on the [employer] hyperlink "Radiology Order Result History" below the final report under the "Result History" tab. * Location 11 MRI BRAIN WO CONTRAST Result Date: 10/15/2022 MRI BRAIN WO CONTRAST Ordering provider: ARELY DEJESUS MRI WITHOUT GADOLINIUM CONTRAST GE or Siemens 1.5 T fixed unit. If performed in [facility], GE 1.5 T GE 450 W unit used. If performed in [facility] or [facility], mobile GE Signa HDxt 1.5 T unit utilized. HISTORY: 82 years Male w/ Neuro deficit, acute, stroke suspected--by blood cell count within normal limits. Chronic paranasal sinus disease. FINDINGS: Comparison CT 10/12/2022. Multiple comparison MRI and CT findings previously. Normal noncontrast vascular flow voids. Fluid in the mastoid air cells worse on the left. Extensive chronic appearing paranasal sinus disease. Confluent opacification of the sphenoid sinuses, and the posterior ethmoid air cells. Air-fluid level formation in the anterior right sphenoid sinus which could represent a combination of acute and chronic sinusitis. There may be chronic appearing erosion in the clivus from this process suggesting long-standing chronic sinusitis without definite mucocele or aggressive characteristics. The appearance of the clivus is stable. Gliosis. Atrophy. No hemorrhage or hematoma, no mass effect or midline shift. No acute / subacute restricted diffusion of acute/subacute infarct. No acute focal restricted diffusion. Scleral band left globe. No hemosiderin deposition. IMPRESSION: Advanced prominent chronic sinusitis in the sphenoid air cells and left posterior ethmoid air cells. Similar findings in the clivus as seen previously. Acute or chronic sinusitis suspected. * Atrophy. Leukoaraiosis. * No acute findings. * No acute infarct. * No hemorrhage or mass effect or midline shift. * No acute intracranial process. * Exacerbation of sinusitis otherwise no change since the previous studies. --------- Dictated from location 11. Note: If you are a patient reading this study report on 'Kerrie Bowman', please direct all questions regarding this report to your primary physician, or primary medical zoo caretaker, not to the interpreting radiologist. Information below is provided only so your physician may call the radiologist with additional questions or clarifications. Your primary physician is best positioned to summarize and combine all of your clinical information, medical history, and physical examination findings with this report. Dict [address] Dictation location: Dictated from location 11. ECHOCARDIOGRAM W/ CONTRAST AGENT Result Date: 10/14/2022 TRANSTHORACIC ECHOCARDIOGRAPHIC REPORT [facility] Patient Name: Boubacar Love : 1940 Age/Sex: 82 y.o. male Echo contrast was used for better endocardial border definition and opacification of the LV Image quality: Difficult study Indication: CAD, arrest Rhythm: Sinus Septal wall thickness in end diastole: 11.0 mm LV internal dimension in end diastole: 42.8 mm LV posterior wall thickness in end diastole: 11.7 mm LV internal dimension in end systole: 17.0 mm AV Maximum velocity: 1.59 m/s AV Mean gradient: 5.1 mmHg AV Area: 2.31 cm LVOT Diameter: 21.0 mm Dimensionless valve index: 0.67 Stroke-volume index: 32.3 ml/m2 Left atrial volume index: 25.4 ml/m2 LEFT ATRIUM: Normal Size (<34 ml/m2) RIGHT ATRIUM: Not well visualized LEFT VENTRICLE: LV size: Normal size, Mild concentric hypertrophy, Septal hypokinesis, LV systolic function is Normal, estimated LVEF 55 %. Diastolic function is normal. RIGHT VENTRICLE: Normal size INTERATRIAL SEPTUM: Normal INTERVENTRICULAR SEPTUM: Normal AORTIC VALVE: Thickened, Moderate regurgitation, no stenosis MITRAL VALVE: Annular calcification, Not well vis ualized,Mild regurgitation , no stenosis TRICUSPID VALVE: Not well visualized, Mild regurgitation PULMONIC VALVE: Not well visualized, No regurgitation PULMONARY VEINS: Not well seen PULMONARY ARTERIES: estimated PASP 40 mmHg INFERIOR VENA CAVA: Not well visualized AORTA: Normal ascending aorta size PERICARDIUM: No pericardial effusion Conclusion: Difficult study; contrast used Probable mild septal hypokinesis with EF ~55% Mild MR Mild TR with PAP 40 mmHg Moderate AI Discharge Lab Data:(Please note date of lab as some may have preceeded admission) Recent Labs 10/13/22202610/13/22 2123 10/14/22 0251 10/14/22 0823 10/14/22 1243 10/14/22 1707 10/14/22 2052 10/15/22 0014 10/15/22 1031 10/15/22 1533 03/16/23 0317 WBC -- 13.5* 10.7 -- -- -- -- 8.8 -- -- 9.3 HGB -- 10.3* 10.0* -- -- -- -- 8.8* -- -- 10.4* HCT -- 31.2* 30.9* -- -- -- -- 28.2* -- -- 34.2* PLT -- 257 229 -- -- -- -- 158 -- -- 187 NA 144 -- 146* 146* 148* 142 142 142 143 141 141 K 3.8 -- 3.7 3.6 3.4* 4.2 3.7 3.8 4.6 3.8 4.0 CL 102 -- 104 106 107 102 104 104 100 102 98 CO2 32* -- 34* 35* 33* 27 29 29 23 29 28 BUN 46* -- 40* 38* 33* 32* 33* 32* 36* 36* 31* CREAT 2.10* -- 1.87* 1.80* 1.57* 1.48* 1.46* 1.45* 1.44* 1.41* 1.48* GLUCOSE 199* -- 104* 267* 112* 288* 296* 312* 496* 368* 249* MG 2.0 -- 1.9 2.0 2.2 2.0 2.2 -- 2.3 -- -- ALT -- -- -- -- -- -- -- 28 -- -- -- AST -- -- -- -- -- -- -- 30 -- -- -- Estimated Creatinine Clearance: 45.1 mL/min (A) (by C-G formula based on SCr of 1.48 mg/dL (H)). No results for input(s): BASETROP, 2HRTROP, 6HRTROP, DELTA in the last 72 hours. No results for input(s): BLDCULT in the last 72 hours. No results for input(s): CULTURE in the last 72 hours. No results for input(s): GRAMSTAIN in the last 72 hours. No results for input(s): MRSARES in the last 72 hours. Please refer to hospital course above. Discharge Exam: BP 129/60 (BP Location: Right arm, Patient Position (BP): Sitting) | Pulse 90 | Temp 97.3 F (36.3 C) (Oral) | Resp 22 | Ht 5' 10" (1.778 m) | Wt 90.7 kg (200 lb) | SpO2 93% | BMI 28.70 kg/m Last documented weight:Weight: 90.7 kg (200 lb) (10/15/22 033) Physical Exam: General Alert, oriented, no acute distress Lungs clear to auscultation bilaterally Heart regularrate and rhythm, S1, S2 normal, no murmur, click, rub or gallop Abdomen soft, non-tender, without masses or organomegaly Extremities Normal,no edema Neuro alert, oriented x3, affect appropriate, no focal neurological deficits Skin Skin color, texture, turgor normal. No rashes or lesions Discharge Condition:improved to baseline Activity:activity as tolerated Diet:Diabetic, cardiac Primary Emergency Contact: Juan CarlosBrittney (POA) Signed:Arely Dejesus MD This discharge tookgreater than 30 minutes of time to prepare. This patient was admitted underinpatientstatus and improved as expected. Past Ubydvtw-Csgvdk-Louojv Hx Past Med/Social Hx: Reviewed Nursing Past Med/Soc Hx, Reviewed and Corrections made Patient Social History Marrital Status: single Employed/Student: retired Alcohol Use: Denies Use Smoking Status: Former Smoker Immunizations Up To Date Date of Pneumonia Vaccine: Aug 05, 2010 Date of Influenza Vaccine: May 14, 2022 Past Medical History Surgeries: CABG, Prostatectomy Cardiac: Atrial Fibrillation, Coronary Artery Disease, High Cholesterol, Hypertension Reproductive: No Genitourinary: Prostate Problems, Renal Failure Gastrointestinal: Chronic Constipation Musculoskeletal: Arthritis Endocrine: Diabetes, Insulin dep Loss of Vision: Bilateral Hearing Impairment: Bilateral Hearing Aide Cancer: Prostate Prior Level of Function Bed Mobility: 6 Transfers: 6 Gait: 6 Stairs: 6 Indoor Mobility (Ambulation): Independent Stairs: Independent Self Care: Independent Functional Cognition: Independent Current Level of Fuctioning Roll Left to Right: 4 Sit to Lyin Lying to Sitting/Side of Bed: 4 Sit to Stand: 4 Chair/Irm-sy-Xybve Xfer: 4 Car Transfer: 3 Does the Patient Walk: Yes Mode of Locomotion: Walk Anticipated Mode of Locomotion: Walk Walk 10 feet: 4 Walk 50 ft with 2 Turns: 4 Walk 150 ft: 4 Walking 10ft on uneven surface: 4 Gait Assistive Device: FWW Wheel 50 ft with 2 turns: 9 Wheel 150 ft: 9 #of Steps: 4 1 Step (curb): 4 4 Steps: 4 12 Steps: 88 Picking up an Object: 4 (CGA using a pump servicer helper) Eatin Oral Hygiene: 4 (supervision) Shower/Bathe Self: 4 (SBA) Upper Body Dressin Lower Body Dressin (SBA) On/Off Footwear: 6 Toileting Hygiene: 4 (SBA) PM&R Allergy/Meds/Data Review Allergies Coded Allergies: No Known Drug Allergies (Unverified , 01/02/15) Home Medications Scheduled Aspirin (Aspirin), 81 MG PO DAILY, (Reported) Betamethasone Dipropionate (Betamethasone Dipropionate), 1 APPLIC TP BID, (Reported) Budesonide (Pulmicort), 0.5 MG NEB BID, (Reported) Budesonide/Formoterol Fumarate (Symbicort 160-4.5 Mcg Inhaler), 2 PUFF IH BID, (Reported) Carvedilol (Carvedilol), 3.125 MG PO Q12H, (Reported) Clopidogrel Bisulfate (Clopidogrel), 75 MG PO DAILY, (Reported) Desonide (Desonide), 1 APPLIC TP BID, (Reported) Diclofenac Sodium (Diclofenac Sodium), 2 GM TP QID, (Reported) Dofetilide (Dofetilide), 125 MCG PO Q12H, (Reported) Enalapril Maleate (Enalapril Maleate), 5 MG PO DAILY, (Reported) Fluoride (Sodium) (Sodium Fluoride), 1 APPLIC DT UD, (Reported) Fluticasone/Salmeterol (Advair 100-50 Diskus), 1 EACH IH DAILY, (Reported) Furosemide (Furosemide), 20 MG PO Q48H, (Reported) Hypromellose (Tears Lubricant Eye Drop), 1 DROP OU QID, (Reported) Insulin Aspart (Novolog), UNIT SQ UD, (Reported) Iron,Carbonyl/Vit C/Vit B12/FA (Iron 100 Plus Tablet), 1 EACH PO DAILY, (Reported) Levothyroxine Sodium (Levothyroxine Sodium), 50 MCG PO DAILY, (Reported) Nortriptyline HCl (Nortriptyline HCl), 150 MG PO 1999, (Reported) [place]-3/Dha/Epa/Dpa/Fish Oil ([place]-3 2100 Softgel), 1 EACH PO DAILY, (Reported) Pantoprazole Sodium (Pantoprazole Sodium), 40 MG PO DAILY, (Reported) Pnv No.122/Iron/Folic Acid ( Multi Tablet), 1 EACH PO DAILY, (Reported) Polyethylene Glycol 3350 (Miralax), 17 GM PO DAILY, (Reported) Potassium Chloride (Potassium Chloride), 10 MEQ PO DAILY, (Reported) Rosuvastatin Calcium (Rosuvastatin Calcium), 40 MG PO HS, (Reported) Sennosides/Docusate Sodium (Senna S Tablet), 1 EACH PO DAILY, (Reported) Sildenafil Citrate (Sildenafil Citrate), 50 MG PO Q48H, (Reported) Terazosin HCl (Terazosin HCl), 1 MG PO 1999, (Reported) Timolol Maleate (Timolol Maleate), 1 DROP OS BID, (Reported) [Neilmed Ped Rinse], 1 EA NA BID, (Reported) Scheduled PRN Acetaminophen (Tylenol Extra Strength), 500 MG PO Q6H PRN for PAIN-MILD (1-4), (Reported) Albuterol Sulfate (Ventolin Hfa), 2 PUFF INH Q6H PRN for SHORTNESS OF BREATH, (Reported) Dextrose (Glucose), 8 GM PO UD PRN for LOW BLOOD GLUCOSE, (Reported) Docusate Sodium (Docusate Sodium), 100 MG PO HS PRN for CONSTIPATION-1ST LINE, (Reported) Famotidine (Famotidine), 20 MG PO BID PRN for GERD, (Reported) Glucagon,Human Recombinant (Glucagen), 1 MG IJ UD PRN for UNCONSCIOUS LOW BLOOD SUGAR, (Reported) Hydrocodone/Acetaminophen (Hydrocodone-Acetamin 5-325 mg), 1 TAB PO Q4H PRN for PAIN-MODERATE (5-7), (Reported) Naloxone HCl (Naloxone HCl), 1 SPRAY NS UD PRN for OVERDOSE, (Reported) Nitroglycerin (Nitroglycerin), 0.4 MG SL UD PRN for CHEST PAIN, (Reported) Saliva Stimulant Comb. No.7 (Biotene Oralbalance), 1 APPLIC MM UD PRN for DRY MOUTH, (Reported) Simethicone (Simethicone), 125 MG PO UD PRN for GAS, (Reported) Discontinued Medications Albuterol Sulfate (Albuterol Sulfate), 0.63 MG IH Q4H PRN for SHORTNESS OF TONNY TH, (Reported) Discontinued Reason: No Longer Taking Aspirin (Aspir 81), 81 MG PO HS, (Reported) Discontinued Reason: No Longer Taking Budesonide/Formoterol Fumarate (Symbicort 80-4.5 Mcg Inhaler), 2 PUFF IH BID, (Reported) Discontinued Reason: No Longer Taking Carvedilol (Coreg), 12.5 MG PO BID, (Reported) Discontinued Reason: No Longer Taking Dabigatran Etexilate Mesylate (Pradaxa), 150 MG PO BID, (Reported) Discontinued Reason: No Longer Taking Desonide (Desonide), 1 GM TP BID, (Reported) Discontinued Reason: No Longer Taking Docusate Sodium (Colace), 100 MG PO HS, (Reported) Discontinued Reason: No Longer Taking Enalapril Maleate (Enalapril Maleate), 5 MG PO DAILY, (Reported) Discontinued Reason: No Longer Taking Fish Oil/Dha/Epa (Fish Oil 1,200 Mg Fish Oil), 1,200 MG PO DAILY, (Reported) Discontinued Reason: No Longer Taking Furosemide (Lasix), 80 MG PO DAILY, (Reported) Discontinued Reason: No Longer Taking Hydrocodone/Acetaminophen ([place] 7.5-325 Tablet), 1 TAB PO Q4-6 PRN for PAIN Discontinued Reason: No Longer Taking Nortriptyline Hcl (Nortriptyline Hcl), 150 MG PO HS, (Reported) Discontinued Reason: No Longer Taking [place] 3/Dha/Epa/Other Om3/D3 ([place]-3 + Vitamin D3 Liquid), 200 ML PO, (Reported) Discontinued Reason: No Longer Taking Polyethylene Glycol (Miralax Btl), 1 TBS PO DAILY, (Reported) Discontinued Reason: No Longer Taking Potassium Chloride (Potassium Chloride), 10 MEQ PO DAILY, (Reported) Discontinued Reason: No Longer Taking Vit#96/Ferrous Fum/Fa ( Tablet), 1 EACH PO DAILY, (Reported) Discontinued Reason: No Longer Taking Saliva Stimulant Agents Comb.2 (Biotene Oralbalance), 0.5 INCH MM QID PRN for DRY MOUTH, (Reported) Discontinued Reason: No Longer Taking Sildenafil Citrate (Viagra), 50 MG PO EVERY OTHER NIGHT, (Reported) Discontinued Reason: No Longer Taking Simvastatin (Simvastatin), 40 MG PO HS, (Reported) Discontinued Reason: No Longer Taking Sotalol Hcl (Sotalol Hcl), 80 MG PO BID, (Reported) Discontinued Reason: No Longer Taking Spironolactone (Aldactone), 25 MG PO DAILY, (Reported) Discontinued Reason: No Longer Taking Terazosin Hcl (Hytrin 1 Mg), 1 MG PO HS, (Reported) Discontinued Reason: No Longer Taking Timolol Maleate (Timoptic 0.5%), 1 DROP OS BID, (Reported) Discontinued Reason: No Longer Taking [Insulin Pump], UNIT SC UD, (Reported) Discontinued Reason: No Longer Taking Current Medications Current Medications Reviewed Review of Systems Constitutional: see HPI, malaise, weakness EENTM: no symptoms reported Respiratory: no symptoms reported Cardiovascular: no symptoms reported Gastrointestinal: no symptoms reported Genitourinary: no symptoms reported Musculoskeletal: back pain, joint pain Skin: no symptoms reported Psychiatric/Neurological: Depressed, Weakness All Other Systems Reviewed Negative Unless Noted: Yes Physical Exam Physical Exam Vital Signs Vital Signs - First Documented 10/16/22 15:00 Temp 36.5 Pulse 89 Resp 18 B/P (MAP) 114/54 (74) Pulse Ox 94 O2 Delivery Room Air Capillary Refill : Height, Weight, BMI Height: 5'8.00" Weight: 258lbs. 0.0oz. [id number]; 30.05 BMI Method: General Appearance: No Apparent Distress, WD/WN, Chronically ill Eyes: Bilateral Eye Normal Inspection, Bilateral Eye PERRL HEENT: PERRL/EOMI, Normal ENT Inspection, Pharynx Normal Neck: Full Range of Motion, Normal Inspection, Non Tender, Supple, Carotid Bruit Respiratory: Chest Non Tender, Lungs Clear, Normal Breath Sounds, No Accessory Muscle Use, No Respiratory Distress Cardiovascular: Regular Rate, Rhythm, No Edema, No Gallop, No JVD, No Murmur, Normal Peripheral Pulses Gastrointestinal: Normal Bowel Sounds, No Organomegaly, No Pulsatile Mass, Non Tender, Soft Back: Normal Inspection, No CVA Tenderness, No Vertebral Tenderness Extremity: Normal Capillary Refill, Normal Inspection, Normal Range of Motion, Non Tender, No Calf Tenderness, No Pedal Edema Neurologic/Psychiatric: Alert, Oriented x3, No Motor/Sensory Deficits, 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 Norm as Tested, Abnormal Gait, Depressed Affect, Motor Weakness (generalized) Skin: Normal Color, Warm/Dry Lymphatic: No Adenopathy PM&R Medical Assessment & Plan REHAB/MEDICAL ASSESSMENT AND PLAN: REHAB IMPAIRMENT GROUP: Debility following bradycardic cardiac arrest with hyperkalemia from DKA ETIOLOGIC DIAGNOSIS: Debility following bradycardic cardiac arrest with hyperkalemia from DKA The comorbidities that impact the patients function and/or functional outcome by: advanced age, post cardiac arrest, CKD, DM on insulin pump REHAB PLAN: The patient is being admitted to our comprehensive inpatient rehabilitation facility and can tolerate the intensity of service consisting of at least: 180 minutes of therapy a day, 5 out of 7 days a week Rehab treatment will consist of: PT OT will focus on regaining function with aggressive rehab with use of AD in order to increase stamina and help regain independence in ADL's The patient/family has a good understanding of our discharge process and will benefit from an interdisciplinary inpatient rehabilitation program. The patient has potential to make improvement and is in need of at least two of the following multidisciplinary therapies including but not limited to physical, occupational, speech, and prosthetics and orthotics. Additionally the patient will need services from respiratory, nutritional services, wound care, psychology, etc. (Customize this to each patient). Given the patients complex condition and risk of further medical complications, rehabilitation services cannot be safely or effectively provided at a lower level of care such as a group home facility. BARRIERS TO DISCHARGE: Severe weakness ESTIMATED LOS: 7 days DISPOSITION: Home RELEVANT CHANGES SINCE PREADMISSION SCREENING: I have compared the patients medical and functional status at the time of the preadmission screening and there are: no changes PROGNOSIS: Good REHABILITATION GOALS: 1. PT OT will focus on regaining function with aggressive rehab with use of AD in order to increase stamina and help regain independence in ADL's All the above goals were reviewed with the patient and he/she is in agreement. By signing this document, I acknowledge that I have personally performed a full physical examination on this patient within 24 hours of admission to this inpatient rehabilitation facility and have determined the patient to be able to tolerate the above course of treatment at an intensive level for a reasonable period of time. I will be completing a detailed individualized Plan of Care for this patient by day #4 of the patients stay based upon the Preadmission Screen, the Post-Admission Evaluation, and the therapy evaluations. 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
[2022-10-16] MEDS ORDERED: SIMETHICONE 80 MG (MYLICON) CHEW PO PRN (18:15)
[2022-10-16] MEDS ORDERED: DEXTROSE 24 GM ORAL GEL TUBE PO PRN (18:30)
[2022-10-16] MEDS ORDERED: SALIVA SUBSTITUTE 236 ML SPRAY (MOUTHKOTE) MM PRN (18:45)
[2022-10-16] MEDS: RT--FLUTICASONE/SALMETEROL 232-14 (AIRDUO RespiCLICK) IH SCH (19:34)
[2022-10-16] MEDS: RT-BUDESONIDE NEBS 0.5 MG/2ML (PULMICORT) AMP IH SCH (19:34)
[2022-10-16] MEDS ORDERED: NORTRIPTYLINE HCL 150 MG PO SCH (20:00)
[2022-10-16 20:03] VITALS: BP 134/65
[2022-10-16] MEDS: NORTRIPTYLINE 25 MG (PAMELOR) CAP PO SCH (20:18)
[2022-10-16] MEDS: DOCUSATE SODIUM 100 MG (COLACE) CAP PO SCH (20:18)
[2022-10-16] MEDS: ARTIFICAL TEARS 0.4 ML UNIT DOSE (REFRESH PLUS) OU SCH (20:18)
[2022-10-16] MEDS: ROSUVASTATIN 20 MG (CRESTOR) TABLET PO SCH (20:18)
[2022-10-16] MEDS: TERAZOSIN 1 MG CAP (HYTRIN) PO SCH (20:18)
[2022-10-16] MEDS: DOFETILIDE 125 MCG (TIKOSYN) CAPSULE PO SCH (20:19)
[2022-10-16] MEDS: DICLOFENAC 1% GEL 100 GM (VOLTAREN) TUBE TP SCH (20:20)
[2022-10-16] MEDS: MOMETASONE 0.1% CREAM 15 GM (ELOCON) TOP SCH (20:20)
[2022-10-16] MEDS: TRIAMCINOLONE 0.1% CR (KENALOG) 15 GM TUBE TOP SCH (20:20)
[2022-10-16] MEDS: TIMOLOL MALEATE 0.5% 5 ML (TIMOPTIC) BTL OS SCH (20:20)
[2022-10-16] MEDS ORDERED: SENNA W/DOCUSATE (SENOKOT S) TABLET PO SCH (21:00)
[2022-10-16] MEDS ORDERED: [UNRECOGNIZED DRUG - OTHER] SCH (21:00)
[2022-10-16] MEDS ORDERED: NON-FORMULARY MEDICATION 1 EA EA (Betamethasone Dipropionate 1 APPLIC) TP SCH (21:00)
[2022-10-16] MEDS ORDERED: NON-FORMULARY MEDICATION 1 EA EA (Timolol Maleate 1 DROP) OS SCH (21:00)
[2022-10-16] MEDS ORDERED: polyethylene glycoL POWDER 17 GM (MIRALAX) PACK PO SCH (21:00)
[2022-10-16] MEDS ORDERED: HYPROMELLOSE OU SCH (21:00)
[2022-10-16] MEDS ORDERED: NON-FORMULARY MEDICATION 1 EA EA (Budesonide/Formoterol Fumarate (Symbicort 160-4.5 Mcg In IH SCH (21:00)
[2022-10-16] MEDS ORDERED: DESONIDE TP SCH (21:00)
[2022-10-16] MEDS ORDERED: NON-FORMULARY MEDICATION 1 EA EA (Rosuvastatin Calcium 40 MG) PO SCH (21:00)
[2022-10-16 22:17] VITALS: BP 122/65
--- NOTE | 2022-10-17 05:40 | PM&R Progress Note ---
Subjective HPI/CC On Admission Date Seen by Provider: Oct 17, 2022 Time Seen by Provider: 11:00 Subjective/Events-last exam 10/17/2022: Had a good night Sugars are monitored closely Creat 1.3 Hgb 9.9 ordered iron and B12 Daughter at bedside Pain controlled Low albumin Noticed how weak he really was during his activities today Review of Systems General: Fatigue, Malaise Objective Exam Vital Signs Vital Signs Date Time Temp Pulse Resp B/P (MAP) Pulse Ox O2 Delivery O2 Flow Rate FiO2 10/17/22 20:42 82 96 25.00 10/17/22 20:40 Room Air 10/17/22 19:59 37.0 16 131/67 (88) Capillary Refill : General Appearance: No Apparent Distress, WD/WN, Chronically ill HEENT: PERRL/EOMI, Normal ENT Inspection, Pharynx Normal Neck: Full Range of Motion, Normal Inspection, Non Tender, Supple, Carotid Bruit Respiratory: Chest Non Tender, Lungs Clear, Normal Breath Sounds, No Accessory Muscle Use, No Respiratory Distress Cardiovascular: Regular Rate, Rhythm, No Edema, No Gallop, No JVD, No Murmur, Normal Peripheral Pulses Gastrointestinal: Normal Bowel Sounds, No Organomegaly, No Pulsatile Mass, Non Tender, Soft Back: Normal Inspection, No CVA Tenderness, No Vertebral Tenderness Extremity: Normal Capillary Refill, Normal Inspection, Normal Range of Motion, Non Tender, No Calf Tenderness, No Pedal Edema Neurologic/Psychiatric: Alert, Oriented x3, No Motor/Sensory Deficits, 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 FIM Transfers Therapy Code Descriptions/Definitions Functional [place] Measure: 0=Not Assessed/NA 4=Minimal Assistance 1=Total Assistance 5=Supervision or Setup 2=Maximal Assistance 6=Modified [place] 3=Moderate Assistance 7=Complete IndependenceSCALE: Activities may be completed with or without assistive devices. 0-Fphwlzaikl-flprzki completes the activity by him/herself with no assistance from a helper. 5-Set-up or Clean-up Assistance-helper sets up or cleans up; patient completes activity. [place] assists only prior to or following the activity. 4-Supervision or Touching Assistance-helper provides verbal cues and/or touching/steadying and/or contact guard assistance as patient completes activity. Assistance may be provided throughout the activity or intermittently. 3-Partial/Moderate Assistance-helper does LESS THAN HALF the effort. [place] lifts, holds or supports trunk or limbs, but provides less than half the effort. 2-Substantial/Maximal Assistance-helper does MORE THAN HALF the effort. [place] lifts or holds trunk or limbs and provides more than half the effort. 5-Xvyrlcxqf-qwdpum does ALL the effort. Patient does none of the effort to co mplete the activity. Or, the assistance of 2 or more helpers is required for the patient to complete the activity. If activity was not attempted, code reason: 7-Patient Refused. 9-Not Applicable-not attempted and the patient did not perform the activity before the current illness, exacerbation or injury. 10-Not Attempted due to Environmental Limitations-(lack of equipment, weather restraints, etc.). 88-Not Attempted due to Medical Conditions or Safety Concerns. Roll Left to Right (QC): 4 Sit to Lying (QC): 4 Sit to Stand (QC): 4 Chair/Yrl-is-Sftgn Xfer(QC): 4 Car Transfer (QC): 3 Gait Training Does the Patient Walk?: Yes Walk 10 feet (QC): 4 Walk 50 ft with 2 Turns(QC): 4 Walk 150 ft (QC): 4 Walking 10ft/uneven surface-QC: 4 Gait Assistive Device: FWW Wheelchair Training Wheel 50 ft with 2 turns (QC): 9 Wheel 150 ft (QC): 9 Stair Training #of Steps: 4 1 Step (curb) (QC): 4 4 Steps (QC): 4 12 Steps (QC): 88 Balance Picking up an Object (QC): 4 (CGA using a heating unit mechanic) ADL-Treatment Eating (QC): 6 Oral Hygiene (QC): 4 (supervision) Shower/Bathe Self (QC): 4 (SBA) Upper Body Dressing (QC): 5 Lower Body Dressing (QC): 4 (SBA) On/Off Footwear (QC): 6 Toileting Hygiene (QC): 4 (SBA) Assessment/Plan Assessment and Plan Assess & Plan/Chief Complaint Assessment: Debility following bradycardic cardiac arrest with hyperkalemia from DKA DM insulin pump dependent AF 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
[2022-10-17 05:51] LABS: BASOPHILS % (AUTO) 0 % (0-10); EOSINOPHILS % (AUTO) 0 % (0-10); HEMATOCRIT 31 % (40-54); HEMOGLOBIN 9.9 g/dL (13.3-17.7); LYMPHOCYTES # (AUTO) 0.8 10^3/uL (1.0-4.0); LYMPHOCYTES % (AUTO) 11 % (12-44); MEAN CORPUSCULAR HEMOGLOBIN 28 pg (25-34); MEAN CORPUSCULAR HGB CONC 33 g/dL (32-36); MEAN CORPUSCULAR VOLUME 87 fL (80-99); MEAN PLATELET VOLUME 9.2 fL (9.0-12.2); MONOCYTES # (AUTO) 0.8 10^3/uL (0.0-1.0); MONOCYTES % (AUTO) 10 % (0-12); NEUTROPHILS # (AUTO) 5.8 10^3/uL (1.8-7.8); NEUTROPHILS % (AUTO) 78 % (42-75); PLATELET COUNT 172 10^3/uL (130-400); WHITE BLOOD COUNT 7.4 10^3/uL (4.3-11.0)
[2022-10-17 06:10] LABS: ALBUMIN 2.5 GM/DL (3.2-4.5); BILIRUBIN,TOTAL 0.4 MG/DL (0.1-1.0); CALCIUM 9.2 MG/DL (8.5-10.1); CREATININE SERUM 1.33 MG/DL (0.60-1.30); POTASSIUM 3.2 MMOL/L (3.6-5.0); TOTAL PROTEIN 5.3 GM/DL (6.4-8.2)
[2022-10-17] MEDS ORDERED: KCL 10 MEQ TAB (MICRO K) PO SCH (07:00)
[2022-10-17] MEDS: LEVOTHYROXINE 50 MCG (LEVOTHROID) TAB PO SCH (07:05)
[2022-10-17] MEDS: PRENATAL VITAMIN 1 EA TAB PO SCH (07:05)
[2022-10-17 07:38] VITALS: BP 103/61
[2022-10-17] MEDS: RT-BUDESONIDE NEBS 0.5 MG/2ML (PULMICORT) AMP IH SCH ×2 (07:44→20:39)
[2022-10-17] MEDS: RT--FLUTICASONE/SALMETEROL 232-14 (AIRDUO RespiCLICK) IH SCH ×2 (07:45→20:40)
[2022-10-17] MEDS: PANTOPRAZOLE 40 MG (PROTONIX) TAB PO SCH (08:10)
[2022-10-17] MEDS: OMEGA 3 (FISH OIL) 1000 MG CAP PO SCH (08:11)
[2022-10-17] MEDS: ARTIFICAL TEARS 0.4 ML UNIT DOSE (REFRESH PLUS) OU SCH ×4 (08:11→20:10)
[2022-10-17] MEDS: TIMOLOL MALEATE 0.5% 5 ML (TIMOPTIC) BTL OS SCH ×2 (08:13→20:10)
[2022-10-17] MEDS: SENNA W/DOCUSATE (SENOKOT S) TABLET PO SCH (08:15)
[2022-10-17] MEDS: DOCUSATE SODIUM 100 MG (COLACE) CAP PO SCH ×2 (08:15→20:56)
[2022-10-17] MEDS: polyethylene glycoL POWDER 17 GM (MIRALAX) PACK PO SCH (08:15)
[2022-10-17] MEDS: DICLOFENAC 1% GEL 100 GM (VOLTAREN) TUBE TP SCH ×4 (08:16→19:36)
[2022-10-17] MEDS: TRIAMCINOLONE 0.1% CR (KENALOG) 15 GM TUBE TOP SCH ×2 (08:16→19:35)
[2022-10-17] MEDS: CLOPIDOGREL 75 MG (PLAVIX) TABLET PO SCH (08:19)
[2022-10-17] MEDS: FUROSEMIDE 20 MG (LASIX) TAB PO SCH (08:19)
[2022-10-17] MEDS: SILDENAFIL 20 MG (REVATIO) TAB PO SCH (08:19)
[2022-10-17] MEDS: DOFETILIDE 125 MCG (TIKOSYN) CAPSULE PO SCH ×2 (08:20→20:11)
[2022-10-17] MEDS: MOMETASONE 0.1% CREAM 15 GM (ELOCON) TOP SCH ×2 (08:22→19:35)
[2022-10-17] MEDS ORDERED: [UNRECOGNIZED DRUG - OTHER] PO SCH (09:00)
[2022-10-17] MEDS ORDERED: NON-FORMULARY MEDICATION 1 EA EA (Fluticasone/Salmeterol (Advair 100-50 Diskus) 1 EACH) IH SCH (09:00)
[2022-10-17] MEDS ORDERED: DHA PO SCH (09:00)
[2022-10-17] MEDS ORDERED: OMEGA PO SCH (09:00)
[2022-10-17] MEDS ORDERED: ASPIRIN 81 MG CHEW (CHILDREN'S ASA) PO SCH (09:00)
[2022-10-17] MEDS ORDERED: NON-FORMULARY MEDICATION 1 EA EA (Potassium Chloride 10 MEQ) PO SCH (09:00)
[2022-10-17] MEDS ORDERED: [UNRECOGNIZED DRUG - REMARK] PO SCH (09:00)
[2022-10-17] MEDS ORDERED: FISH OIL PO SCH (09:00)
[2022-10-17] MEDS ORDERED: DPA PO SCH (09:00)
[2022-10-17] MEDS ORDERED: EPA PO SCH (09:00)
--- NOTE | 2022-10-17 09:42 | Occupational Ther Daily Note ---
OT Current Status-Daily Note Subjective Pt in recliner, agreeable to OT tx with focus on ADLS ADL-Treatment Therapy Code Descriptions/Definitions Functional [place] Measure: 0=Not Assessed/NA 4=Minimal Assistance 1=Total Assistance 5=Supervision or Setup 2=Maximal Assistance 6=Modified [place] 3=Moderate Assistance 7=Complete IndependenceSCALE: Activities may be completed with or without assistive devices. 2-Xumcbiqyuq-gbevzdi completes the activity by him/herself with no assistance from a helper. 5-Set-up or Clean-up Assistance-helper sets up or cleans up; patient completes activity. [place] assists only prior to or following the activity. 4-Supervision or Touching Assistance-helper provides verbal cues and/or touching/steadying and/or contact guard assistance as patient completes activity. Assistance may be provided throughout the activity or intermittently. 3-Partial/Moderate Assistance-helper does LESS THAN HALF the effort. [place] lifts, holds or supports trunk or limbs, but provides less than half the effort. 2-Substantial/Maximal Assistance-helper does MORE THAN HALF the effort. [place] lifts or holds trunk or limbs and provides more than half the effort. 2-Cgashrjen-ccoiwk does ALL the effort. Patient does none of the effort to complete the activity. Or, the assistance of 2 or more helpers is required for the patient to complete the activity. If activity was not attempted, code reason: 7-Patient Refused. 9-Not Applicable-not attempted and the patient did not perform the activity before the current illness, exacerbation or injury. 10-Not Attempted due to Environmental Limitations-(lack of equipment, weather restraints, etc.). 88-Not Attempted due to Medical Conditions or Safety Concerns. Eating (QC): 6 Oral Hygiene (QC): 6 (standing at sink.) Shower/Bathe Self (QC): 6 Upper Body Dressing (QC): 5 Lower Body Dressing (QC): 5 On/Off Footwear: 5 (socks and tennis shoes.) Toileting Hygiene (QC): 6 Toilet Transfer (QC): 6 Other Treatment Pt in recliner, agreeable to OT Tx. Pt requests shower on this date. Pt used FWW to transfer into bathroom and onto SC. Pt doffed clothes, completed shower, then donned clothes. Pt stood at sink for grooming tasks (hand hygiene, oral care, shaving), IND. Pt transferred to recliner. Post tx, pt in recliner, call light in reach and all needs met. Education OT Patient Education: Correct positioning, Energy conservation, Modified ADL techniques, Progress toward Goal/Update tx plan, Purpose of tx/functional activities, Rehab process Teaching Recipient: Patient Teaching Methods: Discussion Response to Teaching: Verbalize Understanding OT Short Term Goals Short Term Goals Time Frame: Oct 24, 2022 Shower/bathe self: 5 Lower body dressin OT Technical Training Manager Goals Technical Training Manager Goals Time Frame: Oct 31, 2022 Acute change in mental status: 0 Inattention: 0 Disorganized thinkin Altered level of consciousness: 0 Eating (QC): 6 Oral Hygiene (QC): 6 Toileting Hygiene (QC): 6 Shower/Bathe Self (QC): 6 Upper Body Dressing (QC): 6 Lower Body Dressing (QC): 6 On/Off Footwear (QC): 6 Additional Goals: 1-Demonstrate ADL Tasks, 2-Verbalize Understanding, 3- ImproveStrength/Tony 1=Demonstrate adherence to instructed precautions during ADL tasks. 2=Patient will verbalize/demonstrate understanding of assistive devices/modifications for ADL. 3=Patient will improve strength/tolerance for activity to enable patient to perform ADL's. OT Education/Plan Problem List/Assessment Assessment: Decreased Activ Tolerance, Decreased UE Strength, Impaired I ADL's Discharge Recommendations Plan/Recommendations: Continue POC Treatment Plan/Plan of Care Patient would benefit from OT for education, treatment and training to promote independence in ADL's, mobility, safety and/or upper extremity function for A DL's. Plan of Care: ADL Retraining, Functional Mobility, Group Exercise/Act as Ind, UE Funct Exercise/Act Treatment Duration: Oct 31, 2022 Frequency: At least 5 of 7 days/Wk (IRF) Estimated Hrs Per Day: 1.5 hours per day Agreement: Yes Rehab Potential: Fair Time Start Time: 09:00 Stop Time: 10:00 DATE: Oct 17, 2022 Total Time Billed (hr/min): 60 Billed Treatment Time 1, ADL 4 SARAH GAMBOA OT Oct 17, 2022 09:42
[2022-10-17 11:30] VITALS: BP 111/55
[2022-10-17] MEDS: ENALAPRIL 5 MG (VASOTEC) TAB PO SCH (11:30)
--- NOTE | 2022-10-17 11:31 | Physical Therapy Daily Note ---
PT Daily Note-Current Subjective Pt. is pleasant and agrees to Rx, States he feels very fortunate to be alive and feels the Lord has more for him to do. Pt. comments that his balance and steadiness are so much worse since this medical crisis and he knows full well he needs the FWW for gait. Pt. shares that he has had falls in the past. Pain Location: No Pain Reported Section J - Health Conditions 1. Rarely or not at all 2. Occasionally 3. Frequently 4. Almost constantly 8. Unable to answer Pain Effect on Sleep: 1 Pain Interference with Therapy: 1 Pain Interference w/Day-to-Day: 1 Mental Status Patient Orientation: Normal For Age Attachments: Other-See Comments (dexcom self maintained) Transfers SCALE: Activities may be completed with or without assistive devices. 8-Wgogigqxvj-salairk completes the activity by him/herself with no assistance from a helper. 5-Set-up or Clean-up Assistance-helper sets up or cleans up; patient completes activity. [place] assists only prior to or following the activity. 4-Supervision or Touching Assistance-helper provides verbal cues and/or touching/steadying and/or contact guard assistance as patient completes activity. Assistance may be provided throughout the activity or intermittently. 3-Partial/Moderate Assistance-helper does LESS THAN HALF the effort. [place] lifts, holds or supports trunk or limbs, but provides less than half the effort. 2-Substantial/Maximal Assistance-helper does MORE THAN HALF the effort. [place] lifts or holds trunk or limbs and provides more than half the effort. 4-Tnbtmpkir-uaskyf does ALL the effort. Patient does none of the effort to complete the activity. Or, the assistance of 2 or more helpers is required for the patient to complete the activity. If activity was not attempted, code reason: 7-Patient Refused. 9-Not Applicable-not attempted and the patient did not perform the activity before the current illness, exacerbation or injury. 10-Not Attempted due to Environmental Limitations-(lack of equipment, weather restraints, etc.). 88-Not Attempted due to Medical Conditions or Safety Concerns. Roll Left & Right (QC): 6 Sit to Lying (QC): 6 Lying to Sitting/Side of Bed(Q: 5 Sit to Stand (QC): 6 Chair/Wia-up-Kdhbw Xfer(QC): 6 pt. expressed discomfort with sup to sit as he attempted to sit up in sup position in 'old sit up " fashion Gait Training Does the Patient Walk?: Yes Walk 10 feet (QC): 6 Walk 50 ft with 2 Turns(QC): 6 Walk 150 ft (QC): 6 Gait Persons Needed: 1 Gait Assistive Device: FWW emphasis on heel strike and slightly longer step length, this improved with work and instruction Exercises Supine Ex: Ankle pumps, Quad Set, Rolling, Glut sets, Lower trunk rotation, Heel Slides, Short Arc Quads, Scooting, Straight leg raise, Hip abd/add Supine Reps: 15 Neuromuscular SCHROEDER 37/56 Treatments SCHROEDER, balance drills, gait training, therex, sup to side to sit TRFs Assessment Current Status: Good Progress PT Reading Assistant Goals Reading Assistant Goals PT Reading Assistant Goals Time Frame: Oct 30, 2022 Roll Left & Right (QC): 6 Sit to Lying (QC): 6 Lying-Sitting on Side/Bed(QC): 6 Sit to Stand (QC): 6 Chair/Npf-mj-Uextf Xfer(QC): 6 Toilet Transfer (QC): 6 Car Transfer (QC): 6 Does the Patient Walk: Yes Walk 10 feet (QC): 6 Walk 50ft with 2 Turns (QC): 6 Walk 150 ft (QC): 6 Walking 10ft on Uneven Surface: 6 1 Step (curb) (QC): 4 (SBA) 4 Steps (QC): 4 (SBA) 12 Steps (QC): 4 (SBA) Picking up an Object (QC): 6 Wheel 50 feet with 2 turns (QC: 9 Wheel 150 feet: 9 PT Plan Treatment/Plan Treatment Plan: Continue Plan of Care Treatment Plan: Bed Mobility, Education, Functional Activity Tony, Functional Strength, Group Therapy, Gait, Safety, Therapeutic Exercise, Transfers Treatment Duration: Oct 30, 2022 Frequency: At least 5 of 7 days/Wk (IRF) Estimated Hrs Per Day: 1.5 hours per day Patient and/or Family Agrees t: Yes Safety Risks/Education Patient Education: Gait Training, Transfer Techniques, Correct Positioning, Safety Issues Teaching Recipient: Patient Teaching Methods: Demonstration, Discussion Response to Teaching: Verbalize Understanding, Return Demonstration, Reinforcement Needed Time Time In: 1000 Time Out: 1130 DATE: Oct 17, 2022 Total Billed Treatment Time: 90 Total Billed Treatment 1,NM35m,GT25m,FA15n,EX15m KD HURTADO RADIO STATION OPERATOR Oct 17, 2022 11:31
--- NOTE | 2022-10-17 11:58 | Occupational Ther Daily Note ---
OT Current Status-Daily Note Subjective Pt up in recliner, agreeable to OT Tx. Pt states he is slightly fatigued after PT. ADL-Treatment Therapy Code Descriptions/Definitions Functional [place] Measure: 0=Not Assessed/NA 4=Minimal Assistance 1=Total Assistance 5=Supervision or Setup 2=Maximal Assistance 6=Modified [place] 3=Moderate Assistance 7=Complete IndependenceSCALE: Activities may be completed with or without assistive devices. 5-Tcdibhizfd-bikuued completes the activity by him/herself with no assistance from a helper. 5-Set-up or Clean-up Assistance-helper sets up or cleans up; patient completes activity. [place] assists only prior to or following the activity. 4-Supervision or Touching Assistance-helper provides verbal cues and/or touching/steadying and/or contact guard assistance as patient completes activity. Assistance may be provided throughout the activity or intermittently. 3-Partial/Moderate Assistance-helper does LESS THAN HALF the effort. [place] lifts, holds or supports trunk or limbs, but provides less than half the effort. 2-Substantial/Maximal Assistance-helper does MORE THAN HALF the effort. [place] lifts or holds trunk or limbs and provides more than half the effort. 1-Ybcjcgrjv-drpslb does ALL the effort. Patient does none of the effort to complete the activity. Or, the assistance of 2 or more helpers is required for the patient to complete the activity. If activity was not attempted, code reason: 7-Patient Refused. 9-Not Applicable-not attempted and the patient did not perform the activity before the current illness, exacerbation or injury. 10-Not Attempted due to Environmental Limitations-(lack of equipment, weather restraints, etc.). 88-Not Attempted due to Medical Conditions or Safety Concerns. Other Treatment Pt in recliner, OT tx focused on increasing BUE Strength and activity tolerance. pt completed UE reaching task, 1lb wrist weights BUEs. Pt completed nut/bolt block, x16 total, placing, manipulating and replacing pieces onto block. Pt able to perform task and report information leading up to hospitalization and stories about his life. Post tx, pt in recliner, call light in reach and all needs met. Daughter present post tx. OT Short Term Goals Short Term Goals Time Frame: Oct 24, 2022 Shower/bathe self: 5 Lower body dressin OT Quality Assurance Practice Manager Goals Quality Assurance Practice Manager Goals Time Frame: Oct 31, 2022 Acute change in mental status: 0 Inattention: 0 Disorganized thinkin Altered level of consciousness: 0 Eating (QC): 6 Oral Hygiene (QC): 6 Toileting Hygiene (QC): 6 Shower/Bathe Self (QC): 6 Upper Body Dressing (QC): 6 Lower Body Dressing (QC): 6 On/Off Footwear (QC): 6 Additional Goals: 1-Demonstrate ADL Tasks, 2-Verbalize Understanding, 3- ImproveStrength/Tony 1=Demonstrate adherence to instructed precautions during ADL tasks. 2=Patient will verbalize/demonstrate understanding of assistive d evices/modifications for ADL. 3=Patient will improve strength/tolerance for activity to enable patient to perform ADL's. OT Education/Plan Problem List/Assessment Assessment: Decreased Activ Tolerance, Decreased UE Strength, Impaired Funct Balance, Impaired I ADL's Discharge Recommendations Plan/Recommendations: Continue POC Treatment Plan/Plan of Care Patient would benefit from OT for education, treatment and training to promote independence in ADL's, mobility, safety and/or upper extremity function for ADL's. Plan of Care: ADL Retraining, Functional Mobility, Group Exercise/Act as Ind, UE Funct Exercise/Act Treatment Duration: Oct 31, 2022 Frequency: At least 5 of 7 days/Wk (IRF) Estimated Hrs Per Day: 1.5 hours per day Agreement: Yes Rehab Potential: Fair Time Start Time: 11:30 Stop Time: 12:00 DATE: Oct 17, 2022 Total Time Billed (hr/min): 30 Billed Treatment Time 1, FA 2 SARAH GAMBOA OT Oct 17, 2022 11:58
--- NOTE | 2022-10-17 12:19 | Individualized Plan of Care ---
Individualized Plan of Care Rehab Nursing IPOC Order Admission Date Oct 16, 2022 at 14:44 Current Orders Orders Admission Order(Inpt,Obs,Sdc) (10/16/22 12:35) Vital Signs: Per Unit Policy ( ,00 (10/16/22 12:35) William Norton (10/16/22 12:35) Sequential Compression Device (10/16/22 12:35) Manager Of Corporate Communications-Inpt Rehab Con (10/16/22 12:35) Rehab Nursing Orders-Ipoc (10/16/22 12:35) Physical Therapy Rehab Orders (10/16/22 12:35) Occupational Therapy Rehab Ord (10/16/22 12:35) Speech Therapy Rehab Orders (10/16/22 12:35) Cbc With Automated Diff (10/17/22 06:00) Comprehensive Metabolic Panel (10/17/22 06:00) Precautions (Aru) (10/16/22 12:35) Weekly Weight WEEK (10/16/22 12:35) Rehab-Intensity Of Therapy (10/16/22 12:35) Initiate Admission Nursing Pro .admission (10/16/22 12:35) Alprazolam Tablet (Xanax Tablet) (10/16/22 12:45) Calcium Carbonate Chew Tablet (Antacid C (10/16/22 12:45) Diphenhydramine Tablet (Benadryl Tablet) (10/16/22 12:45) Docusate Sodium Capsule (Colace Capsule) (10/16/22 21:00) Docusate Sodium Capsule (Colace Capsule) (10/16/22 12:45) Bisacodyl Suppository (Dulcolax Supposit (10/16/22 12:45) Lactulose Oral Solution (Enulose Oral So (10/16/22 12:45) Na Phos/Na Biphos Enema (Fleet Enema Tai (10/16/22 12:45) Guaifenesin/Codeine Syrup (Robitussin Ac (10/16/22 12:45) Loperamide Tablet (Imodium Tablet) (10/16/22 12:45) Melatonin Tablet (Melatonin Tablet) (10/16/22 12:45) Polyethylene Glycol Powder Pkt (Miralax (10/16/22 21:00) Ondansetron Oral Dissolve Tab (Zofran (10/16/22 12:45) Senna S Tablet (Senokot S Tablet) (10/16/22 21:00) Acetaminophen Tablet/Caplet (Tylenol T (10/16/22 12:45) Code/Resuscitation (10/16/22 12:35) Initiate Admission Nursing Pro .admission (10/16/22 12:35) Admission Arrival Bed Request (10/16/22 14:44) Accucheck Achs ACHS (10/16/22 16:13) Nursing Communication (Order) (10/16/22 16:13) Cho 60g/M 1snack (16-1999 Oneil) (10/16/22 Dinner) Acetaminophen Tablet (Tylenol Tablet) (10/16/22 17:45) Albuterol Pre-Mix Nebs (Rt) (Proventil (10/16/22 17:45) Aspirin Chewable Tablet (Baby Aspirin Ch (10/17/22 09:00) Budesonide Inhalation Solution (Pulmicor (10/16/22 21:00) Carvedilol Tablet (Coreg Tablet) (10/16/22 21:00) Clopidogrel Tablet (Plavix Tablet) (10/17/22 09:00) Diclofenac 1% Gel (Voltaren 1% Gel) (10/16/22 21:00) Docusate Sodium Capsule (Colace Capsule) (10/16/22 17:45) Dofetilide Capsule (Tikosyn Capsule) (10/16/22 17:45) Enalapril Tablet (Vasotec Tablet) (10/17/22 09:00) Famotidine Tablet (Pepcid Tablet) (10/16/22 17:45) Glucagon Emergency Kit (Glucagon Emergen (10/16/22 17:45) Hydrocodone/Apap 5/325 Tablet (Lortab 5 (10/16/22 17:45) Insulin Aspart (Novolog) (Novolog (Charg (10/16/22 17:45) Levothyroxine Tablet (Synthroid Tablet) (10/17/22 06:30) Nitroglycerin 0.4 Mg Btl 25's (Nitrostat (10/16/22 17:45) Pantoprazole Tablet (Protonix Tablet) (10/17/22 09:00) Polyethylene Glycol Powder Pkt (Miralax (10/17/22 09:00) Senna S Tablet (Senokot S Tablet) (10/17/22 09:00) Terazosin Capsule (Hytrin Capsule) (10/16/22 20:00) (Nf) Betamethasone Dipropionate (10/16/22 21:00) (Nf) Budesonide/Formoterol Fumarate (Sym (10/16/22 21:00) (Nf) Desonide (10/16/22 21:00) (Nf) Dextrose (Glucose) (10/16/22 17:45) (Nf) Fluoride (Sodium) (Sodium Fluoride) (10/16/22 17:45) (Nf) Fluticasone/Salmeterol (Advair 100- (10/17/22 09:00) (Nf) Hypromellose (Tears Lubricant Eye D (10/16/22 21:00) (Nf) Iron,Carbonyl/Vit C/Vit B12/Fa (Iro (10/17/22 09:00) (Nf) Naloxone Hcl (10/16/22 17:45) (Nf) Nortriptyline Hcl (10/16/22 20:00) (Nf) [place]-3/Dha/Epa/Dpa/Fish Oil ([place] (10/17/22 09:00) (Nf) Pnv No.122/Iron/Folic Acid ([place] (10/17/22 09:00) (Nf) Potassium Chloride (10/17/22 09:00) (Nf) Rosuvastatin Calcium (10/16/22 21:00) (Nf) Saliva Stimulant Comb. No.7 (Bioten (10/16/22 17:45) (Nf) Sildenafil Citrate (10/16/22 17:45) (Nf) Simethicone (10/16/22 17:45) (Nf) Timolol Maleate (10/16/22 21:00) (Nf) [Neilmed Ped Rinse] (10/16/22 21:00) Svn Small Volume Nebulizer (10/16/22 17:44) Vitamin (Vitamins ()) (10/17/22 07:00) Potassium Chloride (Tablet) (Klor Con Ta (10/17/22 07:00) Rosuvastatin Tablet (Crestor Tablet) (10/16/22 21:00) [place] 3 Capsule (Fish Oil Capsule) (10/17/22 09:00) Timolol 0.5% Ophthalmic Soln (Timoptic 0 (10/16/22 21:00) Simethicone Tablet (Mylicon Chewable Tab (10/16/22 18:15) Fluticasone/Salmeterol 232-14 (Airduo Re (10/16/22 21:00) Carboxymethylcell Ophth Soln (Refresh Pl (10/16/22 21:00) Dextrose 24 Gm Oral Gel (Insta Glucose (10/16/22 18:30) Sildenafil Tablet (Revatio Tablet) (10/17/22 09:00) Dofetilide Capsule (Tikosyn Capsule) (10/16/22 20:25) Furosemide Tablet (Lasix Tablet) (10/17/22 09:00) Nortriptyline Capsule (Pamelor Capsule) (10/16/22 20:00) Bipap (Bilevel) Set Up (10/16/22 18:35) Saliva Substitute (Mouthkote Solution) (10/16/22 18:45) Bipap (Bilevel) Set Up (10/16/22 18:59) Mometasone 0.1% Cream (Elocon 0.1% Cream (10/16/22 21:00) Triamcinolone 0.1% Cream 15 Gm (Kenalog (10/16/22 21:00) Patient Visit (10/16/22 ) Pt Eval Low Complexity (10/16/22 ) Functional Activities, Ea 15 (10/16/22 ) Incentive Spirometry (Nursing) Q2H (10/17/22 08:26) Acetaminophen Tablet (Tylenol Tablet) (10/17/22 17:45) Potassium Chloride (Tablet) (Klor Con Ta (10/17/22 13:00) Iron Test (Fe) (10/17/22 12:27) Vitamin B 12 (10/17/22 12:27) Acetaminophen Tablet (Tylenol Tablet) (10/17/22 13:15) Patient Visit (10/17/22 ) Ex Neuromuscular, Ea 15 Min (10/17/22 ) Gait Training, Ea 15 Min (10/17/22 ) Exercise Therap, Ea 15 Min (10/17/22 ) Functional Activities, Ea 15 (10/17/22 ) (Nf) Ferrous Sulfate (10/18/22 09:00) Patient May Use Own Med,Single (Patient (10/18/22 09:00) Ferrous Sulfate Tablet (Feosol Tablet) (10/18/22 07:00) Rehab Nursing Orders: Ongoing Assess. of Cognitive Status, Ongoing Assess. of Function Status, Bladder Management, Bladder Scan, Bladder Training, Bowel Management, Bowel Training, Disease Management & Educaiton, DVT Prophylaxis, Fall Prevention, Fluid/Electrolyte/Nutrition Mgmt, Infection Prevention, Medication Management & Education, Management of Risks & Complications, Management of Skin Intergrity, Nutrition Management, Pain Management, Patient/Family Support, Safety Management Intensity of Therapy to be met Patient to be seen: Min.3h per day/5 of 7d PT IPOC Problem List: Activity Tolerance, Functional Strength, Safety, Balance, Gait, Transfer, Bed Mobility, ROM Treatment Plan: Continue Plan of Care Bed Mobility, Education, Functional Activity Tony, Functional Strength, Group Therapy, Gait, Safety, Therapeutic Exercise, Transfers Treatment Duration: Oct 30, 2022 Frequency: At least 5 of 7 days/Wk (IRF) Estimated Hrs Per Day: 1.5 hours per day OT IPOC Problems: Decreased Activ Tolerance, Decreased UE Strength, Impaired Funct Balance, Impaired I ADL's OT Treatment, Training and Edu: Yes Plan of Care: ADL Retraining, Functional Mobility, Group Exercise/Act as Ind, UE Funct Exercise/Act Treatment Duration: Oct 31, 2022 Frequency: At least 5 of 7 days/Wk (IRF) Estimated Hrs Per Day: 1.[address] IPOC Speech Therapy Treatment Plan: Discontinue ST Treatment Duration: Oct 16, 2022 Frequency: Modified Program (IRF) Estimated Hrs Per Day: Other Manager Of Corporate Communications/Case Mgmt Manager Of Corporate Communications/Case Managemen: Discharge Planning Dietitian/Carbon Coating Machine Operator Dietitian/Carbon Coating Machine Operator to monitor nutritional status and make changes and/or recommendations as needed and work with speech pathology on dietary upgrades as the occur. Physician IPOC Medical Issues being managed closely and that require the 24 hour availability of a physician: Recent cardiac arrest and ROSC during code requiring transfer to [facility] for aggressive treatment will require close monitoring for signs of decompensation Medical Issues: Bowel/Bladder Function, DVT Prophylaxis, Falls Precautions, Fluid/Electrolyte/Nutrition Balance, Infection Protection, Pain Management, Wound Care Brief Synthesis of Preadmission Screen, Post-Admission Evaluation, and Therapy Evaluations: PT OT will focus on regaining function with use of AD in order to regain ADL's in order to return home with independence Medical Prognosis: Good Anticipated Length of Stay: 7 days TAM BREEN DO Oct 17, 2022 12:19
[2022-10-17] MEDS: KCL 10 MEQ TAB (MICRO K) PO SCH ×2 (13:05→17:29)
[2022-10-17] MEDS ORDERED: FERR324T4 PO (16:54)
[2022-10-17] MEDS ORDERED: ACETAMINOPHEN 500 MG TAB (TYLENOL) PO PRN (17:45)
[2022-10-17 19:59] VITALS: BP 131/67
[2022-10-17] MEDS: NORTRIPTYLINE 25 MG (PAMELOR) CAP PO SCH (20:09)
[2022-10-17] MEDS: ROSUVASTATIN 20 MG (CRESTOR) TABLET PO SCH (20:10)
[2022-10-17] MEDS: TERAZOSIN 1 MG CAP (HYTRIN) PO SCH (20:10)
[2022-10-18] MEDS: LEVOTHYROXINE 50 MCG (LEVOTHROID) TAB PO SCH (06:19)
[2022-10-18] MEDS: PRENATAL VITAMIN 1 EA TAB PO SCH (06:19)
[2022-10-18] MEDS: FERROUS SULF 325 MG (IRON) TAB PO SCH ×2 (06:19→08:54)
--- NOTE | 2022-10-18 06:47 | PM&R Progress Note ---
Subjective HPI/CC On Admission Date Seen by Provider: Oct 18, 2022 Time Seen by Provider: 11:00 Subjective/Events-last exam 10/18/2022: Doing well Reviewed labs of B12 and Iron and he just started taking his home iron now so no changes needed Sugars good No falls Pain controlled from chest compressions 10/17/2022: Had a good night Sugars are monitored closely Creat 1.3 Hgb 9.9 ordered iron and B12 Daughter at bedside Pain controlled Low albumin Noticed how weak he really was during his activities today Review of Systems General: Fatigue, Malaise Objective Exam Vital Signs Vital Signs Date Time Temp Pulse Resp B/P (MAP) Pulse Ox O2 Delivery O2 Flow Rate FiO2 10/18/22 09:00 Room Air 10/18/22 07:42 95 10/18/22 07:14 36.5 93 18 106/65 (79) 10/18/22 02:32 25.00 Capillary Refill : General Appearance: No Apparent Distress, WD/WN, Chronically ill HEENT: PERRL/EOMI, Normal ENT Inspection, Pharynx Normal Neck: Full Range of Motion, Normal Inspection, Non Tender, Supple, Carotid Bruit Respiratory: Chest Non Tender, Lungs Clear, Normal Breath Sounds, No Accessory Muscle Use, No Respiratory Distress Cardiovascular: Regular Rate, Rhythm, No Edema, No Gallop, No JVD, No Murmur, Normal Peripheral Pulses Gastrointestinal: Normal Bowel Sounds, No Organomegaly, No Pulsatile Mass, Non Tender, Soft Back: Normal Inspection, No CVA Tenderness, No Vertebral Tenderness Extremity: Normal Capillary Refill, Normal Inspection, Normal Range of Motion, Non Tender, No Calf Tenderness, No Pedal Edema Neurologic/Psychiatric: Alert, Oriented x3, No Motor/Sensory Deficits, assurance specialist II- XII Norm as Tested, Abnormal Gait, Depressed Affect, Motor Weakness (generalized) Skin: Normal Color, Warm/Dry Lymphatic: No Adenopathy Results/Procedures Lab Patient resulted labs reviewed. FIM Transfers Therapy Code Descriptions/Definitions Functional [place] Measure: 0=Not Assessed/NA 4=Minimal Assistance 1=Total Assistance 5=Supervision or Setup 2=Maximal Assistance 6=Modified [place] 3=Moderate Assistance 7=Complete IndependenceSCALE: Activities may be completed with or without assistive devices. 4-Nnqyzxzfux-jxqefra completes the activity by him/herself with no assistance from a helper. 5-Set-up or Clean-up Assistance-helper sets up or cleans up; patient completes activity. [place] assists only prior to or following the activity. 4-Supervision or Touching Assistance-helper provides verbal cues and/or touching/steadying and/or contact guard assistance as patient completes activity. Assistance may be provided throughout the activity or intermittently. 3-Partial/Moderate Assistance-helper does LESS THAN HALF the effort. [place] lifts, holds or supports trunk or limbs, but provides less than half the effort. 2-Substantial/Maximal Assistance-helper does MORE THAN HALF the effort. [place] lifts or holds trunk or limbs and provides more than half the effort. 9-Aewrvkcrv-ylkfwk does ALL the effort. Patient does none of the effort to complete the activity. Or, the assistance of 2 or more helpers is required for the patient to complete the activity. If activity was not attempted, code reason: 7-Patient Refused. 9-Not Applicable-not attempted and the patient did not perform the activity before the current illness, exacerbation or injury. 10-Not Attempted due to Environmental Limitations-(lack of equipment, weather restraints, etc.). 88-Not Attempted due to Medical Conditions or Safety Concerns. Roll Left to Right (QC): 6 Sit to Lying (QC): 6 Sit to Stand (QC): 6 Chair/Zcb-ja-Eghbo Xfer(QC): 6 Car Transfer (QC): 3 Gait Training Does the Patient Walk?: Yes Walk 10 feet (QC): 6 Walk 50 ft with 2 Turns(QC): 6 Walk 150 ft (QC): 6 Walking 10ft/uneven surface-QC: 4 Gait Persons Needed: 1 Gait Assistive Device: FWW Wheelchair Training Wheel 50 ft with 2 turns (QC): 9 Wheel 150 ft (QC): 9 Stair Training #of Steps: 4 1 Step (curb) (QC): 4 4 Steps (QC): 4 12 Steps (QC): 88 Balance Picking up an Object (QC): 4 (CGA using a dewaxer) ADL-Treatment Eating (QC): 6 Oral Hygiene (QC): 6 (standing at sink.) Shower/Bathe Self (QC): 6 Upper Body Dressing (QC): 5 Lower Body Dressing (QC): 5 On/Off Footwear (QC): 5 (socks and tennis shoes.) Toileting Hygiene (QC): 6 Toilet Transfer (QC): 6 Assessment/Plan Assessment and Plan Assess & Plan/Chief Complaint Assessment: Debility following bradycardic cardiac arrest with hyperkalemia from DKA 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
[2022-10-18 07:14] VITALS: BP 106/65
[2022-10-18] MEDS: RT-BUDESONIDE NEBS 0.5 MG/2ML (PULMICORT) AMP IH SCH ×2 (07:42→19:01)
[2022-10-18] MEDS: RT--FLUTICASONE/SALMETEROL 232-14 (AIRDUO RespiCLICK) IH SCH ×2 (07:42→19:01)
[2022-10-18] MEDS: OMEGA 3 (FISH OIL) 1000 MG CAP PO SCH (08:54)
[2022-10-18] MEDS: DOFETILIDE 125 MCG (TIKOSYN) CAPSULE PO SCH ×2 (08:54→20:15)
[2022-10-18] MEDS: CLOPIDOGREL 75 MG (PLAVIX) TABLET PO SCH (08:54)
[2022-10-18] MEDS: ARTIFICAL TEARS 0.4 ML UNIT DOSE (REFRESH PLUS) OU SCH ×4 (08:54→20:14)
[2022-10-18] MEDS: KCL 10 MEQ TAB (MICRO K) PO SCH ×3 (08:54→17:58)
[2022-10-18] MEDS: DOCUSATE SODIUM 100 MG (COLACE) CAP PO SCH ×2 (08:54→19:47)
[2022-10-18] MEDS: PANTOPRAZOLE 40 MG (PROTONIX) TAB PO SCH (08:54)
[2022-10-18] MEDS: ENALAPRIL 5 MG (VASOTEC) TAB PO SCH (08:54)
[2022-10-18] MEDS: polyethylene glycoL POWDER 17 GM (MIRALAX) PACK PO SCH (08:55)
[2022-10-18] MEDS: SENNA W/DOCUSATE (SENOKOT S) TABLET PO SCH (08:55)
[2022-10-18] MEDS: TIMOLOL MALEATE 0.5% 5 ML (TIMOPTIC) BTL OS SCH ×2 (08:56→20:15)
[2022-10-18] MEDS: DICLOFENAC 1% GEL 100 GM (VOLTAREN) TUBE TP SCH ×4 (08:59→19:48)
[2022-10-18] MEDS: TRIAMCINOLONE 0.1% CR (KENALOG) 15 GM TUBE TOP SCH ×2 (09:00→19:48)
[2022-10-18] MEDS ORDERED: PATIENT MAY USE OWN MED,SINGLE MED PO SCH (09:00)
[2022-10-18] MEDS ORDERED: NON-FORMULARY MEDICATION 1 EA EA (Ferrous Sulfate 324 MG) PO SCH (09:00)
--- NOTE | 2022-10-18 11:30 | Physical Therapy Daily Note ---
PT Daily Note-Current Subjective Agrees to Rx, no c/o pain, states he already feels stronger and better and is so grateful. Pt states he still feels challenged to go from sup to side to sit and TRF confidently and requests working on this Pain Location: No Pain Reported Section J - Health Conditions 1. Rarely or not at all 2. Occasionally 3. Frequently 4. Almost constantly 8. Unable to answer Pain Effect on Sleep: 1 Pain Interference with Therapy: 1 Pain Interference w/Day-to-Day: 1 Mental Status Patient Orientation: Normal For Age Transfers SCALE: Activities may be completed with or without assistive devices. 8-Avjtdzpegr-lmyirfz completes the activity by him/herself with no assistance from a helper. 5-Set-up or Clean-up Assistance-helper sets up or cleans up; patient completes activity. [place] assists only prior to or following the activity. 4-Supervision or Touching Assistance-helper provides verbal cues and/or odalys екатерина/steadying and/or contact guard assistance as patient completes activity. Assistance may be provided throughout the activity or intermittently. 3-Partial/Moderate Assistance-helper does LESS THAN HALF the effort. [place] lifts, holds or supports trunk or limbs, but provides less than half the effort. 2-Substantial/Maximal Assistance-helper does MORE THAN HALF the effort. [place] lifts or holds trunk or limbs and provides more than half the effort. 1-Vjxrxrkuj-fiiajw does ALL the effort. Patient does none of the effort to complete the activity. Or, the assistance of 2 or more helpers is required for the patient to complete the activity. If activity was not attempted, code reason: 7-Patient Refused. 9-Not Applicable-not attempted and the patient did not perform the activity before the current illness, exacerbation or injury. 10-Not Attempted due to Environmental Limitations-(lack of equipment, weather restraints, etc.). 88-Not Attempted due to Medical Conditions or Safety Concerns. Roll Left & Right (QC): 4 Sit to Lying (QC): 4 Lying to Sitting/Side of Bed(Q: 4 Sit to Stand (QC): 4 Chair/Cjr-wj-Szbfj Xfer(QC): 4 pt has bed cane on his bed at home , his FWW was placed at side of Rx table mat to simulate his bed cane, sit to sup to sit was practiced with instruction and cuing x 3 with good results and pt feeling successful and more comfortable about this Gait Training Does the Patient Walk?: Yes Walk 10 feet (QC): 4 Walk 50 ft with 2 Turns(QC): 4 Walk 150 ft (QC): 4 Gait Persons Needed: 1 Gait Assistive Device: FWW turning and maneuvering in tighter areas while in good position in FWW was focus of gait training as well as heel strike and posture Exercises Supine Ex: Bridging, Rolling, Lower trunk rotation, Heel Slides, Straight leg raise, Hip abd/add Supine Reps: 12 NuStep Minutes: 8 NuStep Workload: 2 Treatments TRFs, gait, LE ex, balance Assessment Current Status: Good Progress PT Process Project Engineer Goals Fpc Goals PT Process Project Engineer Goals Time Frame: Oct 30, 2022 Roll Left & Right (QC): 6 Sit to Lying (QC): 6 Lying-Sitting on Side/Bed(QC): 6 Sit to Stand (QC): 6 Chair/Ezl-ct-Lkiqd Xfer(QC): 6 Toilet Transfer (QC): 6 Car Transfer (QC): 6 Does the Patient Walk: Yes Walk 10 feet (QC): 6 Walk 50ft with 2 Turns (QC): 6 Walk 150 ft (QC): 6 Walking 10ft on Uneven Surface: 6 1 Step (curb) (QC): 4 (SBA) 4 Steps (QC): 4 (SBA) 12 Steps (QC): 4 (SBA) Picking up an Object (QC): 6 Wheel 50 feet with 2 turns (QC: 9 Wheel 150 feet: 9 PT Plan Treatment/Plan Treatment Plan: Continue Plan of Care Treatment Plan: Bed Mobility, Education, Functional Activity Tony, Functional Strength, Group Therapy, Gait, Safety, Therapeutic Exercise, Transfers Treatment Duration: Oct 30, 2022 Frequency: At least 5 of 7 days/Wk (IRF) Estimated Hrs Per Day: 1.5 hours per day Patient and/or Family Agrees t: Yes Safety Risks/Education Patient Education: Gait Training, Transfer Techniques, Correct Positioning, Disease Process, Safety Issues Teaching Recipient: Patient Teaching Methods: Demonstration, Discussion Response to Teaching: Verbalize Understanding, Return Demonstration, Reinforcement Needed Time Time In: 1000 Time Out: 1025 DATE: Oct 18, 2022 Total Billed Treatment Time: 25 Total Billed Treatment 1,FA15m,GT10m KD HURTADO PTA Oct 18, 2022 11:30
[2022-10-18] MEDS: MOMETASONE 0.1% CREAM 15 GM (ELOCON) TOP SCH ×2 (13:52→19:47)
[2022-10-18 19:16] VITALS: BP 135/84
[2022-10-18] MEDS: TERAZOSIN 1 MG CAP (HYTRIN) PO SCH (20:14)
[2022-10-18] MEDS: NORTRIPTYLINE 25 MG (PAMELOR) CAP PO SCH (20:14)
[2022-10-18] MEDS: ROSUVASTATIN 20 MG (CRESTOR) TABLET PO SCH (20:14)
[2022-10-19] MEDS: polyethylene glycoL POWDER 17 GM (MIRALAX) PACK PO SCH (04:25)
[2022-10-19] MEDS: LEVOTHYROXINE 50 MCG (LEVOTHROID) TAB PO SCH (06:08)
[2022-10-19] MEDS: PRENATAL VITAMIN 1 EA TAB PO SCH (06:08)
[2022-10-19] MEDS: FERROUS SULF 325 MG (IRON) TAB PO SCH (06:09)
[2022-10-19 07:15] VITALS: BP 108/65
[2022-10-19] MEDS: PANTOPRAZOLE 40 MG (PROTONIX) TAB PO SCH (08:30)
[2022-10-19] MEDS: CLOPIDOGREL 75 MG (PLAVIX) TABLET PO SCH (08:30)
[2022-10-19] MEDS: OMEGA 3 (FISH OIL) 1000 MG CAP PO SCH (08:30)
[2022-10-19] MEDS: ENALAPRIL 5 MG (VASOTEC) TAB PO SCH (08:30)
[2022-10-19] MEDS: DOCUSATE SODIUM 100 MG (COLACE) CAP PO SCH ×2 (08:30→20:27)
[2022-10-19] MEDS: DOFETILIDE 125 MCG (TIKOSYN) CAPSULE PO SCH ×2 (08:30→20:26)
[2022-10-19] MEDS: KCL 10 MEQ TAB (MICRO K) PO SCH ×3 (08:30→17:11)
[2022-10-19] MEDS: ARTIFICAL TEARS 0.4 ML UNIT DOSE (REFRESH PLUS) OU SCH ×4 (08:30→20:27)
[2022-10-19] MEDS: SENNA W/DOCUSATE (SENOKOT S) TABLET PO SCH (08:30)
[2022-10-19] MEDS: TRIAMCINOLONE 0.1% CR (KENALOG) 15 GM TUBE TOP SCH ×2 (08:37→20:57)
[2022-10-19] MEDS: FUROSEMIDE 20 MG (LASIX) TAB PO SCH (08:37)
[2022-10-19] MEDS: SILDENAFIL 20 MG (REVATIO) TAB PO SCH (08:37)
[2022-10-19] MEDS: DICLOFENAC 1% GEL 100 GM (VOLTAREN) TUBE TP SCH ×4 (08:37→20:57)
[2022-10-19] MEDS: TIMOLOL MALEATE 0.5% 5 ML (TIMOPTIC) BTL OS SCH ×2 (08:37→20:27)
[2022-10-19] MEDS: MOMETASONE 0.1% CREAM 15 GM (ELOCON) TOP SCH ×2 (08:38→20:57)
[2022-10-19] MEDS: RT--FLUTICASONE/SALMETEROL 232-14 (AIRDUO RespiCLICK) IH SCH ×2 (11:49→21:02)
[2022-10-19] MEDS: RT-BUDESONIDE NEBS 0.5 MG/2ML (PULMICORT) AMP IH SCH ×2 (11:50→21:02)
--- NOTE | 2022-10-19 15:33 | PM&R Progress Note ---
Subjective HPI/CC On Admission Date Seen by Provider: Oct 19, 2022 Time Seen by Provider: 15:30 Subjective/Events-last exam 10/19/2022: No major issues Left eye feels like it is scratched so will initiate saline flushes Sugars are ok No pain reported 10/18/2022: Doing well Reviewed labs of B12 and Iron and he just started taking his home iron now so no changes needed Sugars good No falls Pain controlled from chest compressions 10/17/2022: Had a good night Sugars are monitored closely Creat 1.3 Hgb 9.9 ordered iron and B12 Daughter at bedside Pain controlled Low albumin Noticed how weak he really was during his activities today Review of Systems General: Fatigue, Malaise Objective Exam Vital Signs Vital Signs Date Time Temp Pulse Resp B/P (MAP) Pulse Ox O2 Delivery O2 Flow Rate FiO2 10/19/22 19:20 37.0 86 18 115/76 (89) 95 Room Air 10/19/22 07:15 2.00 Capillary Refill : General Appearance: No Apparent Distress, WD/WN, Chronically ill HEENT: PERRL/EOMI, Normal ENT Inspection, Pharynx Normal Neck: Full Range of Motion, Normal Inspection, Non Tender, Supple, Carotid Bruit Respiratory: Chest Non Tender, Lungs Clear, Normal Breath Sounds, No Accessory Muscle Use, No Respiratory Distress Cardiovascular: Regular Rate, Rhythm, No Edema, No Gallop, No JVD, No Murmur, Normal Peripheral Pulses Gastrointestinal: Normal Bowel Sounds, No Organomegaly, No Pulsatile Mass, Non Tender, Soft Back: Normal Inspection, No CVA Tenderness, No Vertebral Tenderness Extremity: Normal Capillary Refill, Normal Inspection, Normal Range of Motion, Non Tender, No Calf Tenderness, No Pedal Edema Neurologic/Psychiatric: Alert, Oriented x3, No Motor/Sensory Deficits, dry cleaner helper II- XII Norm as Tested, Abnormal Gait, Depressed Affect, Motor Weakness (generalized) Skin: Normal Color, Warm/Dry Lymphatic: No Adenopathy Results/Procedures Lab Patient resulted labs reviewed. FIM Transfers Therapy Code Descriptions/Definitions Functional [place] Measure: 0=Not Assessed/NA 4=Minimal Assistance 1=Total Assistance 5=Supervision or Setup 2=Maximal Assistance 6=Modified [place] 3=Moderate Assistance 7=Complete IndependenceSCALE: Activities may be completed with or without assistive devices. 3-Dfbniezwcu-ojcvzna completes the activity by him/herself with no assistance from a helper. 5-Set-up or Clean-up Assistance-helper sets up or cleans up; patient completes activity. [place] assists only prior to or following the activity. 4-Supervision or Touching Assistance-helper provides verbal cues and/or touching/steadying and/or contact guard assistance as patient completes activity. Assistance may be provided throughout the activity or intermittently. 3-Partial/Moderate Assistance-helper does LESS THAN HALF the effort. [place] lifts, holds or supports trunk or limbs, but provides less than half the effort. 2-Substantial/Maximal Assistance-helper does MORE THAN HALF the effort. [place] lifts or holds trunk or limbs and provides more than half the effort. 7-Kirapntqc-nilosd does ALL the effort. Patient does none of the effort to complete the activity. Or, the assistance of 2 or more helpers is required for the patient to complete the activity. If activity was not attempted, code reason: 7-Patient Refused. 9-Not Applicable-not attempted and the patient did not perform the activity before the current illness, exacerbation or injury. 10-Not Attempted due to Environmental Limitations-(lack of equipment, weather restraints, etc.). 88-Not Attempted due to Medical Conditions or Safety Concerns. Roll Left to Right (QC): 4 Sit to Lying (QC): 4 Sit to Stand (QC): 4 Chair/Vif-tu-Payth Xfer(QC): 4 Car Transfer (QC): 3 Gait Training Does the Patient Walk?: Yes Walk 10 feet (QC): 4 Walk 50 ft with 2 Turns(QC): 4 Walk 150 ft (QC): 4 Walking 10ft/uneven surface-QC: 4 Gait Persons Needed: 1 Gait Assistive Device: FWW Wheelchair Training Wheel 50 ft with 2 turns (QC): 9 Wheel 150 ft (QC): 9 Stair Training #of Steps: 4 1 Step (curb) (QC): 4 4 Steps (QC): 4 12 Steps (QC): 88 Balance Picking up an Object (QC): 4 (CGA using a radiographer) ADL-Treatment Eating (QC): 6 Oral Hygiene (QC): 6 (standing at sink.) Shower/Bathe Self (QC): 6 Upper Body Dressing (QC): 5 Lower Body Dressing (QC): 5 On/Off Footwear (QC): 5 (socks and tennis shoes.) Toileting Hygiene (QC): 6 Toilet Transfer (QC): 6 Assessment/Plan Assessment and Plan Assess & Plan/Chief Complaint Assessment: Debility following bradycardic cardiac arrest with hyperkalemia from DKA DM insulin pump dependent AF s/p Watchman procedure 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
[2022-10-19] MEDS ORDERED: CATHETER FLUSH 10 ML SYR IVP PRN (16:00)
[2022-10-19 19:20] VITALS: BP 115/76
[2022-10-19] MEDS: ROSUVASTATIN 20 MG (CRESTOR) TABLET PO SCH (20:27)
[2022-10-19] MEDS: TERAZOSIN 1 MG CAP (HYTRIN) PO SCH (20:27)
[2022-10-19] MEDS: NORTRIPTYLINE 25 MG (PAMELOR) CAP PO SCH (20:27)
--- NOTE | 2022-10-20 04:54 | PM&R Progress Note ---
Subjective HPI/CC On Admission Date Seen by Provider: Oct 20, 2022 Time Seen by Provider: 08:30 Subjective/Events-last exam 10/20/2022: No major events Improved overall Weakness is improved Left eye is improved 10/19/2022: No major issues Left eye feels like it is scratched so will initiate saline flushes Sugars are ok No pain reported 10/18/2022: Doing well Reviewed labs of B12 and Iron and he just started taking his home iron now so no changes needed Sugars good No falls Pain controlled from chest compressions 10/17/2022: Had a good night Sugars are monitored closely Creat 1.3 Hgb 9.9 ordered iron and B12 Daughter at bedside Pain controlled Low albumin Noticed how weak he really was during his activities today Review of Systems General: Fatigue, Malaise Neurological: Weakness Objective Exam Vital Signs Vital Signs Date Time Temp Pulse Resp B/P (MAP) Pulse Ox O2 Delivery O2 Flow Rate FiO2 10/20/22 22:53 Nasal Cannula 2.00 10/20/22 21:18 96 21 10/20/22 20:08 36.9 76 20 119/64 (82) Capillary Refill : General Appearance: No Apparent Distress, WD/WN, Chronically ill HEENT: PERRL/EOMI, Normal ENT Inspection, Pharynx Normal Neck: Full Range of Motion, Normal Inspection, Non Tender, Supple, Carotid Bruit Respiratory: Chest Non Tender, Lungs Clear, Normal Breath Sounds, No Accessory Muscle Use, No Respiratory Distress Cardiovascular: Regular Rate, Rhythm, No Edema, No Gallop, No JVD, No Murmur, Normal Peripheral Pulses Gastrointestinal: Normal Bowel Sounds, No Organomegaly, No Pulsatile Mass, Non Tender, Soft Back: Normal Inspection, No CVA Tenderness, No Vertebral Tenderness Extremity: Normal Capillary Refill, Normal Inspection, Normal Range of Motion, Non Tender, No Calf Tenderness, No Pedal Edema Neurologic/Psychiatric: Alert, Oriented x3, No Motor/Sensory Deficits, autocutter II- XII Norm as Tested, Abnormal Gait, Depressed Affect, Motor Weakness (gene ralized) Skin: Normal Color, Warm/Dry Lymphatic: No Adenopathy Results/Procedures Lab Laboratory Tests 10/20/22 05:58 Patient resulted labs reviewed. FIM Transfers Therapy Code Descriptions/Definitions Functional [place] Measure: 0=Not Assessed/NA 4=Minimal Assistance 1=Total Assistance 5=Supervision or Setup 2=Maximal Assistance 6=Modified [place] 3=Moderate Assistance 7=Complete IndependenceSCALE: Activities may be completed with or without assistive devices. 9-Cgwmifcxhr-poeuuuv completes the activity by him/herself with no assistance from a helper. 5-Set-up or Clean-up Assistance-helper sets up or cleans up; patient completes activity. [place] assists only prior to or following the activity. 4-Supervision or Touching Assistance-helper provides verbal cues and/or touching/steadying and/or contact guard assistance as patient completes activity. Assistance may be provided throughout the activity or intermittently. 3-Partial/Moderate Assistance-helper does LESS THAN HALF the effort. [place] lifts, holds or supports trunk or limbs, but provides less than half the effort. 2-Substantial/Maximal Assistance-helper does MORE THAN HALF the effort. [place] lifts or holds trunk or limbs and provides more than half the effort. 9-Gymfaqesa-cgjreq does ALL the effort. Patient does none of the effort to complete the activity. Or, the assistance of 2 or more helpers is required for the patient to complete the activity. If activity was not attempted, code reason: 7-Patient Refused. 9-Not Applicable-not attempted and the patient did not perform the activity before the current illness, exacerbation or injury. 10-Not Attempted due to Environmental Limitations-(lack of equipment, weather restraints, etc.). 88-Not Attempted due to Medical Conditions or Safety Concerns. Roll Left to Right (QC): 4 Sit to Lying (QC): 4 Sit to Stand (QC): 4 Chair/Fzg-lf-Fvcjc Xfer(QC): 4 Car Transfer (QC): 3 Gait Training Does the Patient Walk?: Yes Walk 10 feet (QC): 4 Walk 50 ft with 2 Turns(QC): 4 Walk 150 ft (QC): 4 Walking 10ft/uneven surface-QC: 4 Gait Persons Needed: 1 Gait Assistive Device: FWW Wheelchair Training Wheel 50 ft with 2 turns (QC): 9 Wheel 150 ft (QC): 9 Stair Training #of Steps: 4 1 Step (curb) (QC): 4 4 Steps (QC): 4 12 Steps (QC): 88 Balance Picking up an Object (QC): 4 (CGA using a epitaxial reactor operator) ADL-Treatment Eating (QC): 6 Oral Hygiene (QC): 6 (standing at sink.) Shower/Bathe Self (QC): 6 Upper Body Dressing (QC): 5 Lower Body Dressing (QC): 5 On/Off Footwear (QC): 5 (socks and tennis shoes.) Toileting Hygiene (QC): 6 Toilet Transfer (QC): 6 Assessment/Plan Assessment and Plan Assess & Plan/Chief Complaint Assessment: Debility following bradycardic cardiac arrest with hyperkalemia from DKA DM insulin pump dependent AF s/p Watchman procedure 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
[2022-10-20] MEDS: PRENATAL VITAMIN 1 EA TAB PO SCH (06:13)
[2022-10-20] MEDS: LEVOTHYROXINE 50 MCG (LEVOTHROID) TAB PO SCH (06:13)
[2022-10-20] MEDS: FERROUS SULF 325 MG (IRON) TAB PO SCH (06:14)
[2022-10-20 06:21] LABS: BASOPHILS % (AUTO) 1 % (0-10); EOSINOPHILS % (AUTO) 0 % (0-10); HEMATOCRIT 30 % (40-54); HEMOGLOBIN 9.7 g/dL (13.3-17.7); LYMPHOCYTES # (AUTO) 0.8 10^3/uL (1.0-4.0); LYMPHOCYTES % (AUTO) 13 % (12-44); MEAN CORPUSCULAR HEMOGLOBIN 29 pg (25-34); MEAN CORPUSCULAR HGB CONC 33 g/dL (32-36); MEAN CORPUSCULAR VOLUME 87 fL (80-99); MEAN PLATELET VOLUME 9.4 fL (9.0-12.2); MONOCYTES # (AUTO) 1.2 10^3/uL (0.0-1.0); MONOCYTES % (AUTO) 18 % (0-12); NEUTROPHILS # (AUTO) 4.2 10^3/uL (1.8-7.8); NEUTROPHILS % (AUTO) 62 % (42-75); PLATELET COUNT 256 10^3/uL (130-400); WHITE BLOOD COUNT 6.7 10^3/uL (4.3-11.0)
[2022-10-20 06:26] LABS: SMEAR SCAN COMMENT YES
[2022-10-20 06:45] LABS: ALBUMIN 2.5 GM/DL (3.2-4.5); BILIRUBIN,TOTAL 0.3 MG/DL (0.1-1.0); CALCIUM 9.1 MG/DL (8.5-10.1); CREATININE SERUM 1.24 MG/DL (0.60-1.30); POTASSIUM 4.1 MMOL/L (3.6-5.0); TOTAL PROTEIN 5.7 GM/DL (6.4-8.2)
[2022-10-20] MEDS: RT-BUDESONIDE NEBS 0.5 MG/2ML (PULMICORT) AMP IH SCH ×2 (07:19→21:17)
[2022-10-20] MEDS: RT--FLUTICASONE/SALMETEROL 232-14 (AIRDUO RespiCLICK) IH SCH ×2 (07:19→21:17)
[2022-10-20 07:53] VITALS: BP 94/56
[2022-10-20] MEDS: ACETAMINOPHEN 500 MG TAB (TYLENOL) PO PRN (08:15)
[2022-10-20] MEDS: PANTOPRAZOLE 40 MG (PROTONIX) TAB PO SCH (08:15)
[2022-10-20] MEDS: ARTIFICAL TEARS 0.4 ML UNIT DOSE (REFRESH PLUS) OU SCH ×4 (08:16→20:23)
[2022-10-20] MEDS: CLOPIDOGREL 75 MG (PLAVIX) TABLET PO SCH (08:16)
[2022-10-20] MEDS: DOCUSATE SODIUM 100 MG (COLACE) CAP PO SCH ×2 (08:16→20:23)
[2022-10-20] MEDS: OMEGA 3 (FISH OIL) 1000 MG CAP PO SCH (08:16)
[2022-10-20] MEDS: KCL 10 MEQ TAB (MICRO K) PO SCH ×3 (08:16→17:40)
[2022-10-20] MEDS: TIMOLOL MALEATE 0.5% 5 ML (TIMOPTIC) BTL OS SCH ×2 (08:20→20:24)
[2022-10-20] MEDS: polyethylene glycoL POWDER 17 GM (MIRALAX) PACK PO SCH (08:24)
[2022-10-20] MEDS: DOFETILIDE 125 MCG (TIKOSYN) CAPSULE PO SCH ×2 (08:24→20:22)
[2022-10-20] MEDS: SENNA W/DOCUSATE (SENOKOT S) TABLET PO SCH (09:00)
[2022-10-20] MEDS: DICLOFENAC 1% GEL 100 GM (VOLTAREN) TUBE TP SCH ×4 (09:00→20:24)
[2022-10-20] MEDS: TRIAMCINOLONE 0.1% CR (KENALOG) 15 GM TUBE TOP SCH ×2 (09:00→20:25)
[2022-10-20] MEDS: MOMETASONE 0.1% CREAM 15 GM (ELOCON) TOP SCH ×2 (09:00→20:24)
--- NOTE | 2022-10-20 09:17 | Occupational Ther Daily Note ---
OT Current Status-Daily Note Subjective Pt in recliner, agreeable to OT Tx with focus on ADLs. Mental Status/Objective Patient Orientation: Normal For Age ADL-Treatment Therapy Code Descriptions/Definitions Functional [place] Measure: 0=Not Assessed/NA 4=Minimal Assistance 1=Total Assistance 5=Supervision or Setup 2=Maximal Assistance 6=Modified [place] 3=Moderate Assistance 7=Complete IndependenceSCALE: Activities may be completed with or without assistive devices. 2-Wfljchrtuj-fdvxotm completes the activity by him/herself with no assistance from a helper. 5-Set-up or Clean-up Assistance-helper sets up or cleans up; patient completes activity. [place] assists only prior to or following the activity. 4-Supervision or Touching Assistance-helper provides verbal cues and/or touching/steadying and/or contact guard assistance as patient completes activity. Assistance may be provided throughout the activity or intermittently. 3-Partial/Moderate Assistance-helper does LESS THAN HALF the effort. [place] lifts, holds or supports trunk or limbs, but provides less than half the effort. 2-Substantial/Maximal Assistance-helper does MORE THAN HALF the effort. [place] lifts or holds trunk or limbs and provides more than half the effort. 6-Lfpdeimfr-ihgqms does ALL the effort. Patient does none of the effort to complete the activity. Or, the assistance of 2 or more helpers is required for the patient to complete the activity. If activity was not attempted, code reason: 7-Patient Refused. 9-Not Applicable-not attempted and the patient did not perform the activity before the current illness, exacerbation or injury. 10-Not Attempted due to Environmental Limitations-(lack of equipment, weather restraints, etc.). 88-Not Attempted due to Medical Conditions or Safety Concerns. Eating (QC): 6 Oral Hygiene (QC): 6 Shower/Bathe Self (QC): 6 Upper Body Dressing (QC): 6 Lower Body Dressing (QC): 5 On/Off Footwear: 5 Toileting Hygiene (QC): 6 Toilet Transfer (QC): 6 Other Treatment Pt in recliner, agreeable to OT tx. Pt used FWW to transfer into bathroom and onto SC. Pt doffed clothes, completed shower, then donned clothes. Pt stood at sink to complete grooming tasks, then used FWW to return to recliner. Post tx, pt in recliner, call light in reach and all needs met. Education OT Patient Education: Correct positioning, Energy conservation, Modified ADL techniques, Progress toward Goal/Update tx plan, Purpose of tx/functional activities, Rehab process Teaching Recipient: Patient Teaching Methods: Discussion Response to Teaching: Verbalize Understanding OT Short Term Goals Short Term Goals Time Frame: Oct 24, 2022 Shower/bathe self: 5 Lower body dressin OT Rig Builder Goals Rig Builder Goals Time Frame: Oct 31, 2022 Acute change in mental status: 0 Inattention: 0 Disorganized thinkin Altered level of consciousness: 0 Eating (QC): 6 Oral Hygiene (QC): 6 Toileting Hygiene (QC): 6 Shower/Bathe Self (QC): 6 Upper Body Dressing (QC): 6 Lower Body Dressing (QC): 6 On/Off Footwear (QC): 6 Additional Goals: 1-Demonstrate ADL Tasks, 2-Verbalize Understanding, 3- ImproveStrength/Tony 1=Demonstrate adherence to instructed precautions during ADL tasks. 2=Patient will verbalize/demonstrate understanding of assistive devices/modifications for ADL. 3=Patient will improve strength/tolerance for activity to enable patient to perform ADL's. OT Education/Plan Problem List/Assessment Assessment: Decreased Activ Tolerance, Decreased UE Strength, Impaired I ADL's Discharge Recommendations Plan/Recommendations: Continue POC Treatment Plan/Plan of Care Patient would benefit from OT for education, treatment and training to promote independence in ADL's, mobility, safety and/or upper extremity function for ADL's. Plan of Care: ADL Retraining, Functional Mobility, Group Exercise/Act as Ind, UE Funct Exercise/Act Treatment Duration: Oct 31, 2022 Frequency: At least 5 of 7 days/Wk (IRF) Estimated Hrs Per Day: 1.5 hours per day Agreement: Yes Rehab Potential: Fair Time Start Time: 09:00 Stop Time: 10:00 DATE: Oct 20, 2022 Total Time Billed (hr/min): 60 Billed Treatment Time 1, ADL 4 SARAH GAMBOA OT Oct 20, 2022 09:17
--- NOTE | 2022-10-20 09:56 | Physical Therapy Daily Note ---
PT Daily Note-Current Subjective Pt sitting in recliner upon arrival. Pt agrees to PT. Pain Location: No Pain Reported Section J - Health Conditions 1. Rarely or not at all 2. Occasionally 3. Frequently 4. Almost constantly 8. Unable to answer Pain Effect on Sleep: 1 Pain Interference with Therapy: 1 Pain Interference w/Day-to-Day: 1 Mental Status Patient Orientation: Person, Place, Time, Situation Attachments: Oxygen Transfers SCALE: Activities may be completed with or without assistive devices. 3-Xteuioyjtg-eqcxyfr completes the activity by him/herself with no assistance from a helper. 5-Set-up or Clean-up Assistance-helper sets up or cleans up; patient completes activity. [place] assists only prior to or following the activity. 4-Supervision or Touching Assistance-helper provides verbal cues and/or touching/steadying and/or contact guard assistance as patient completes activity. Assistance may be provided throughout the activity or intermittently. 3-Partial/Moderate Assistance-helper does LESS THAN HALF the effort. [place] lifts, holds or supports trunk or limbs, but provides less than half the effort. 2-Substantial/Maximal Assistance-helper does MORE THAN HALF the effort. [place] lifts or holds trunk or limbs and provides more than half the effort. 6-Skwobrjcl-rfidln does ALL the effort. Patient does none of the effort to complete the activity. Or, the assistance of 2 or more helpers is required for the patient to complete the activity. If activity was not attempted, code reason: 7-Patient Refused. 9-Not Applicable-not attempted and the patient did not perform the activity before the current illness, exacerbation or injury. 10-Not Attempted due to Environmental Limitations-(lack of equipment, weather restraints, etc.). 88-Not Attempted due to Medical Conditions or Safety Concerns. Sit to Lying (QC): 5 Lying to Sitting/Side of Bed(Q: 5 Sit to Stand (QC): 5 Weight Bearing Full Weight Bearing Full Weight Bearing Exercises Seated Therapy Exercises: Ankle pumps, Long arc quads, Hip flexion, Hamstring Curls, Hip abd/add, Glut set Seated Reps: 15 Treatments After taking morning meds, pt had discussed concern of BiPap and not getting enough rest but Nurse advised she was working w/pt to correct. Pt TF to standing and TF to EOB to work on bed mobility and TF using bed rail as pt will have bed cane at home. Pt also completes Seated EX at EOB before amb in amos llway. Pt returns to sit in recliner to rest at end of tx. All needs met, call light in hand. Assessment Current Status: Good Progress Pt is learing to find limits and trying to push them appropriately so make progress but not exhaust self. PT Custodial Goals Custodial Goals PT Shaft Mechanic Goals Time Frame: Oct 30, 2022 Roll Left & Right (QC): 6 Sit to Lying (QC): 6 Lying-Sitting on Side/Bed(QC): 6 Sit to Stand (QC): 6 Chair/Yut-zs-Vxgbb Xfer(QC): 6 Toilet Transfer (QC): 6 Car Transfer (QC): 6 Does the Patient Walk: Yes Walk 10 feet (QC): 6 Walk 50ft with 2 Turns (QC): 6 Walk 150 ft (QC): 6 Walking 10ft on Uneven Surface: 6 1 Step (curb) (QC): 4 (SBA) 4 Steps (QC): 4 (SBA) 12 Steps (QC): 4 (SBA) Picking up an Object (QC): 6 Wheel 50 feet with 2 turns (QC: 9 Wheel 150 feet: 9 PT Plan Problem List Problem List: Activity Tolerance, Functional Strength Treatment/Plan Treatment Plan: Continue Plan of Care Treatment Plan: Bed Mobility, Education, Functional Activity Tony, Functional Strength, Group Therapy, Gait, Safety, Therapeutic Exercise, Transfers Treatment Duration: Oct 30, 2022 Frequency: At least 5 of 7 days/Wk (IRF) Estimated Hrs Per Day: 1.5 hours per day Patient and/or Family Agrees t: Yes Safety Risks/Education Patient Education: Transfer Techniques Teaching Recipient: Patient Teaching Methods: Discussion Response to Teaching: Verbalize Understanding Time Time In: 800 Time Out: 900 DATE: Oct 20, 2022 Total Billed Treatment Time: 60 Total Billed Treatment 1, FA (15m), EXx2 (30m) & GT (15m) KIERAN AGUERO SEAM SEWER Oct 20, 2022 09:56
[2022-10-20 10:45] VITALS: BP 106/51
[2022-10-20] MEDS: ENALAPRIL 5 MG (VASOTEC) TAB PO SCH (10:50)
--- NOTE | 2022-10-20 11:40 | Occupational Ther Daily Note ---
OT Current Status-Daily Note Subjective Pt in recliner, agreeable to OT Tx. ADL-Treatment Therapy Code Descriptions/Definitions Functional [place] Measure: 0=Not Assessed/NA 4=Minimal Assistance 1=Total Assistance 5=Supervision or Setup 2=Maximal Assistance 6=Modified [place] 3=Moderate Assistance 7=Complete IndependenceSCALE: Activities may be completed with or without assistive devices. 2-Kfgyzpacpr-xgyycja completes the activity by him/herself with no assistance from a helper. 5-Set-up or Clean-up Assistance-helper sets up or cleans up; patient completes activity. [place] assists only prior to or following the activity. 4-Supervision or Touching Assistance-helper provides verbal cues and/or touching/steadying and/or contact guard assistance as patient completes activity. Assistance may be provided throughout the activity or intermittently. 3-Partial/Moderate Assistance-helper does LESS THAN HALF the effort. [place] lifts, holds or supports trunk or limbs, but provides less than half the effort. 2-Substantial/Maximal Assistance-helper does MORE THAN HALF the effort. [place] lifts or holds trunk or limbs and provides more than half the effort. 9-Jlpxuyhrv-aeiwqj does ALL the effort. Patient does none of the effort to compl ete the activity. Or, the assistance of 2 or more helpers is required for the patient to complete the activity. If activity was not attempted, code reason: 7-Patient Refused. 9-Not Applicable-not attempted and the patient did not perform the activity before the current illness, exacerbation or injury. 10-Not Attempted due to Environmental Limitations-(lack of equipment, weather restraints, etc.). 88-Not Attempted due to Medical Conditions or Safety Concerns. Other Treatment Pt in recliner, used FWW to perform functional mobility to therapy gym, no assistance required, no LOB. OT tx focused on increasing BUE strength and activity tolerance. Pt completed arm bike, x15 mins, 20-25 Watt resistance, 1 rest break during task. Pt used FWW to return to his room, transferring to recliner. Post tx, pt in recliner, call light in reach and all needs met, chair alarm activated. OT Short Term Goals Short Term Goals Time Frame: Oct 24, 2022 Shower/bathe self: 5 Lower body dressin OT Half-Way Goals Half-Way Goals Time Frame: Oct 31, 2022 Acute change in mental status: 0 Inattention: 0 Disorganized thinkin Altered level of consciousness: 0 Eating (QC): 6 Oral Hygiene (QC): 6 Toileting Hygiene (QC): 6 Shower/Bathe Self (QC): 6 Upper Body Dressing (QC): 6 Lower Body Dressing (QC): 6 On/Off Footwear (QC): 6 Additional Goals: 1-Demonstrate ADL Tasks, 2-Verbalize Understanding, 3- ImproveStrength/Tony 1=Demonstrate adherence to instructed precautions during ADL tasks. 2=Patient will verbalize/demonstrate understanding of assistive devices/modifications for ADL. 3=Patient will improve strength/tolerance for activity to enable patient to perform ADL's. OT Education/Plan Problem List/Assessment Assessment: Decreased Activ Tolerance, Decreased UE Strength, Impaired I ADL's Discharge Recommendations Plan/Recommendations: Continue POC Treatment Plan/Plan of Care Patient would benefit from OT for education, treatment and training to promote independence in ADL's, mobility, safety and/or upper extremity function for ADL's. Plan of Care: ADL Retraining, Functional Mobility, Group Exercise/Act as Ind, UE Funct Exercise/Act Treatment Duration: Oct 31, 2022 Frequency: At least 5 of 7 days/Wk (IRF) Estimated Hrs Per Day: 1.5 hours per day Agreement: Yes Rehab Potential: Fair Time Start Time: 11:30 Stop Time: 12:00 DATE: Oct 20, 2022 Total Time Billed (hr/min): 30 Billed Treatment Time 1, EX 2 SARAH GAMBOA OT Oct 20, 2022 11:40
--- NOTE | 2022-10-20 16:07 | Physical Therapy Daily Note ---
PT Daily Note-Current Subjective Pt sitting in reclienr upon arrival. Pt agrees to PT. Pain Location: No Pain Reported Section J - Health Conditions 1. Rarely or not at all 2. Occasionally 3. Frequently 4. Almost constantly 8. Unable to answer Pain Effect on Sleep: 1 Pain Interference with Therapy: 1 Pain Interference w/Day-to-Day: 1 Mental Status Patient Orientation: Person, Place, Time, Situation Transfers SCALE: Activities may be completed with or without assistive devices. 8-Bcmyhrhqzf-nmxkngh completes the activity by him/herself with no assistance from a helper. 5-Set-up or Clean-up Assistance-helper sets up or cleans up; patient completes activity. [place] assists only prior to or following the activity. 4-Supervision or Touching Assistance-helper provides verbal cues and/or touching/steadying and/or contact guard assistance as patient completes activity. Assistance may be provided throughout the activity or intermittently. 3-Partial/Moderate Assistance-helper does LESS THAN HALF the effort. [place] lifts, holds or supports trunk or limbs, but provides less than half the effort. 2-Substantial/Maximal Assistance-helper does MORE THAN HALF the effort. [place] lifts or holds trunk or limbs and provides more than half the effort. 9-Ezexfafmh-vhoyuq does ALL the effort. Patient does none of the effort to complete the activity. Or, the assistance of 2 or more helpers is required for the patient to complete the activity. If activity was not attempted, code reason: 7-Patient Refused. 9-Not Applicable-not attempted and the patient did not perform the activity before the current illness, exacerbation or injury. 10-Not Attempted due to Environmental Limitations-(lack of equipment, weather restraints, etc.). 88-Not Attempted due to Medical Conditions or Safety Concerns. Sit to Stand (QC): 5 Weight Bearing Full Weight Bearing Full Weight Bearing Gait Training Does the Patient Walk?: Yes Distance: 200' Walk 10 feet (QC): 5 Walk 50 ft with 2 Turns(QC): 5 Walk 150 ft (QC): 5 Gait Assistive Device: FWW Wheelchair Training Does the Pt Use a Wheelchair?: No Exercises NuStep Minutes: 15 NuStep Workload: 4 Treatments TF to standing and amb to BR. After finishing, pt amb in hallway then uses NuStep before amb back to room to rest in recliner. All needs met, call light in hand. Assessment Current Status: Good Progress Pt markie. tx well. PT Half-Way Goals Half-Way Goals PT Inside Account Executive Goals Time Frame: Oct 30, 2022 Roll Left & Right (QC): 6 Sit to Lying (QC): 6 Lying-Sitting on Side/Bed(QC): 6 Sit to Stand (QC): 6 Chair/Ojv-iq-Tdkoz Xfer(QC): 6 Toilet Transfer (QC): 6 Car Transfer (QC): 6 Does the Patient Walk: Yes Walk 10 feet (QC): 6 Walk 50ft with 2 Turns (QC): 6 Walk 150 ft (QC): 6 Walking 10ft on Uneven Surface: 6 1 Step (curb) (QC): 4 (SBA) 4 Steps (QC): 4 (SBA) 12 Steps (QC): 4 (SBA) Picking up an Object (QC): 6 Wheel 50 feet with 2 turns (QC: 9 Wheel 150 feet: 9 PT Plan Treatment/Plan Treatment Plan: Continue Plan of Care Treatment Plan: Bed Mobility, Education, Functional Activity Tony, Functional Strength, Group Therapy, Gait, Safety, Therapeutic Exercise, Transfers Treatment Duration: Oct 30, 2022 Frequency: At least 5 of 7 days/Wk (IRF) Estimated Hrs Per Day: 1.5 hours per day Patient and/or Family Agrees t: Yes Time Time In: 1300 Time Out: 1330 DATE: Oct 20, 2022 Total Billed Treatment Time: 30 Total Billed Treatment 1, FA (15m) & EX (15m) KIERAN AGUERO ECG TECHNICIAN Oct 20, 2022 16:07
[2022-10-20 20:08] VITALS: BP 119/64
[2022-10-20] MEDS: NORTRIPTYLINE 25 MG (PAMELOR) CAP PO SCH (20:23)
[2022-10-20] MEDS: ROSUVASTATIN 20 MG (CRESTOR) TABLET PO SCH (20:23)
[2022-10-20] MEDS: TERAZOSIN 1 MG CAP (HYTRIN) PO SCH (20:23)
[2022-10-21] MEDS: HYDROcodone/APAP 5 MG/325 MG (LORTAB) TAB PO PRN ×3 (03:08→21:01)
--- NOTE | 2022-10-21 04:59 | PM&R Progress Note ---
Subjective HPI/CC On Admission Date Seen by Provider: Oct 21, 2022 Time Seen by Provider: 08:30 Subjective/Events-last exam 10/21/2022: No major events Sore throat "from intubation" to throat spray will be ordered Patient otherwise doing well No falls 10/20/2022: No major events Improved overall Weakness is improved Left eye is improved 10/19/2022: No major issues Left eye feels like it is scratched so will initiate saline flushes Sugars are ok No pain reported 10/18/2022: Doing well Reviewed labs of B12 and Iron and he just started taking his home iron now so no changes needed Sugars good No falls Pain controlled from chest compressions 10/17/2022: Had a good night Sugars are monitored closely Creat 1.3 Hgb 9.9 ordered iron and B12 Daughter at bedside Pain controlled Low albumin Noticed how weak he really was during his activities today Review of Systems General: Fatigue, Malaise Objective Exam Vital Signs Vital Signs Date Time Temp Pulse Resp B/P (MAP) Pulse Ox O2 Delivery O2 Flow Rate FiO2 10/21/22 22:21 84 10/21/22 21:51 96 Nasal Cannula 2.00 10/21/22 20:14 36.5 16 124/69 (87) 10/20/22 21:18 21 Capillary Refill : General Appearance: No Apparent Distress, WD/WN, Chronically ill HEENT: PERRL/EOMI, Normal ENT Inspection, Pharynx Normal Neck: Full Range of Motion, Normal Inspection, Non Tender, Supple, Carotid Bruit Respiratory: Chest Non Tender, Lungs Clear, Normal Breath Sounds, No Accessory Muscle Use, No Respiratory Distress Cardiovascular: Regular Rate, Rhythm, No Edema, No Gallop, No JVD, No Murmur, Normal Peripheral Pulses Gastrointestinal: Normal Bowel Sounds, No Organomegaly, No Pulsatile Mass, Non Tender, Soft Back: Normal Inspection, No CVA Tenderness, No Vertebral Tenderness Extremity: Normal Capillary Refill, Normal Inspection, Normal Range of Motion, Non Tender, No Calf Tenderness, No Pedal Edema Neurologic/Psychiatric: Alert, Oriented x3, No Motor/Sensory Deficits, drying machine receiver II- XII Norm as Tested, Abnormal Gait, Depressed Affect, Motor Weakness (generalized) Skin: Normal Color, Warm/Dry Lymphatic: No Adenopathy Results/Procedures Lab Patient resulted labs reviewed. FIM Transfers Therapy Code Descriptions/Definitions Functional [place] Measure: 0=Not Assessed/NA 4=Minimal Assistance 1=Total Assistance 5=Supervision or Setup 2=Maximal Assistance 6=Modified [place] 3=Moderate Assistance 7=Complete IndependenceSCALE: Activities may be completed with or without assistive devices. 8-Tyyuascipr-eyecpvf completes the activity by him/herself with no assistance from a helper. 5-Set-up or Clean-up Assistance-helper sets up or cleans up; patient completes activity. [place] assists only prior to or following the activity. 4-Supervision or Touching Assistance-helper provides verbal cues and/or touching/steadying and/or contact guard assistance as patient completes activity. Assistance may be provided throughout the activity or intermittently. 3-Partial/Moderate Assistance-helper does LESS THAN HALF the effort. [place] lifts, holds or supports trunk or limbs, but provides less than half the effort. 2-Substantial/Maximal Assistance-helper does MORE THAN HALF the effort. [place] lifts or holds trunk or limbs and provides more than half the effort. 7-Yhtgwpnvl-yjbojr does ALL the effort. Patient does none of the effort to complete the activity. Or, the assistance of 2 or more helpers is required for the patient to complete the activity. If activity was not attempted, code reason: 7-Patient Refused. 9-Not Applicable-not attempted and the patient did not perform the activity before the current illness, exacerbation or injury. 10-Not Attempted due to Environmental Limitations-(lack of equipment, weather restraints, etc.). 88-Not Attempted due to Medical Conditions or Safety Concerns. Roll Left to Right (QC): 4 Sit to Lying (QC): 5 Sit to Stand (QC): 5 Chair/Bnf-nu-Dycyz Xfer(QC): 4 Car Transfer (QC): 3 Gait Training Does the Patient Walk?: Yes Distance: 200' Walk 10 feet (QC): 5 Walk 50 ft with 2 Turns(QC): 5 Walk 150 ft (QC): 5 Walking 10ft/uneven surface-QC: 4 Gait Persons Needed: 1 Gait Assistive Device: FWW Wheelchair Training Does the Pt Use a Wheelchair?: No Wheel 50 ft with 2 turns (QC): 9 Wheel 150 ft (QC): 9 Stair Training #of Steps: 4 1 Step (curb) (QC): 4 4 Steps (QC): 4 12 Steps (QC): 88 Balance Picking up an Object (QC): 4 (CGA using a painter ordnance) ADL-Treatment Eating (QC): 6 Oral Hygiene (QC): 6 Shower/Bathe Self (QC): 6 Upper Body Dressing (QC): 6 Lower Body Dressing (QC): 5 On/Off Footwear (QC): 5 Toileting Hygiene (QC): 6 Toilet Transfer (QC): 6 Assessment/Plan Assessment and Plan Assess & Plan/Chief Complaint Assessment: Debility following bradycardic cardiac arrest with hyperkalemia from DKA DM insulin pump dependent AF s/p Watchman procedure 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
[2022-10-21] MEDS: PRENATAL VITAMIN 1 EA TAB PO SCH (06:26)
[2022-10-21] MEDS: LEVOTHYROXINE 50 MCG (LEVOTHROID) TAB PO SCH (06:27)
[2022-10-21] MEDS: FERROUS SULF 325 MG (IRON) TAB PO SCH (06:27)
[2022-10-21] MEDS: RT--FLUTICASONE/SALMETEROL 232-14 (AIRDUO RespiCLICK) IH SCH ×2 (07:39→21:49)
[2022-10-21] MEDS: RT-BUDESONIDE NEBS 0.5 MG/2ML (PULMICORT) AMP IH SCH ×2 (07:39→21:48)
[2022-10-21 08:00] VITALS: BP 98/50
[2022-10-21] MEDS: ARTIFICAL TEARS 0.4 ML UNIT DOSE (REFRESH PLUS) OU SCH ×4 (08:09→20:21)
[2022-10-21] MEDS: KCL 10 MEQ TAB (MICRO K) PO SCH ×3 (08:09→17:21)
[2022-10-21] MEDS: DOCUSATE SODIUM 100 MG (COLACE) CAP PO SCH ×2 (08:09→20:21)
[2022-10-21] MEDS: OMEGA 3 (FISH OIL) 1000 MG CAP PO SCH (08:09)
[2022-10-21] MEDS: SENNA W/DOCUSATE (SENOKOT S) TABLET PO SCH (08:10)
[2022-10-21] MEDS: CLOPIDOGREL 75 MG (PLAVIX) TABLET PO SCH (08:10)
[2022-10-21] MEDS: polyethylene glycoL POWDER 17 GM (MIRALAX) PACK PO SCH (08:10)
[2022-10-21] MEDS: PANTOPRAZOLE 40 MG (PROTONIX) TAB PO SCH (08:10)
[2022-10-21] MEDS: TIMOLOL MALEATE 0.5% 5 ML (TIMOPTIC) BTL OS SCH ×2 (08:11→20:22)
[2022-10-21] MEDS: FUROSEMIDE 20 MG (LASIX) TAB PO SCH (08:16)
[2022-10-21] MEDS: SILDENAFIL 20 MG (REVATIO) TAB PO SCH (08:17)
[2022-10-21] MEDS: MOMETASONE 0.1% CREAM 15 GM (ELOCON) TOP SCH ×2 (08:18→21:00)
[2022-10-21] MEDS: DICLOFENAC 1% GEL 100 GM (VOLTAREN) TUBE TP SCH ×4 (08:18→21:00)
[2022-10-21] MEDS: TRIAMCINOLONE 0.1% CR (KENALOG) 15 GM TUBE TOP SCH ×2 (08:18→21:00)
[2022-10-21] MEDS: DOFETILIDE 125 MCG (TIKOSYN) CAPSULE PO SCH ×2 (08:19→20:21)
[2022-10-21] MEDS: ENALAPRIL 5 MG (VASOTEC) TAB PO SCH (08:23)
--- NOTE | 2022-10-21 10:14 | Occupational Ther Daily Note ---
OT Current Status-Daily Note Subjective Pt in recliner, agreeable to OT Tx ADL-Treatment Therapy Code Descriptions/Definitions Functional [place] Measure: 0=Not Assessed/NA 4=Minimal Assistance 1=Total Assistance 5=Supervision or Setup 2=Maximal Assistance 6=Modified [place] 3=Moderate Assistance 7=Complete IndependenceSCALE: Activities may be completed with or without assistive devices. 5-Krewhodzvs-vhcvldr completes the activity by him/herself with no assistance from a helper. 5-Set-up or Clean-up Assistance-helper sets up or cleans up; patient completes activity. [place] assists only prior to or following the activity. 4-Supervision or Touching Assistance-helper provides verbal cues and/or touching/steadying and/or contact guard assistance as patient completes activity. Assistance may be provided throughout the activity or intermittently. 3-Partial/Moderate Assistance-helper does LESS THAN HALF the effort. [place] lifts, holds or supports trunk or limbs, but provides less than half the effort. 2-Substantial/Maximal Assistance-helper does MORE THAN HALF the effort. [place] lifts or holds trunk or limbs and provides more than half the effort. 6-Hyxocmxyu-nmbpjc does ALL the effort. Patient does none of the effort to complete the activity. Or, the assistance of 2 or more helpers is required for the patient to complete the activity. If activity was not attempted, code reason: 7-Patient Refused. 9-Not Applicable-not attempted and the patient did not perform the activity before the current illness, exacerbation or injury. 10-Not Attempted due to Environmental Limitations-(lack of equipment, weather restraints, etc.). 88-Not Attempted due to Medical Conditions or Safety Concerns. Eating (QC): 6 Oral Hygiene (QC): 6 Shower/Bathe Self (QC): 6 Upper Body Dressing (QC): 6 Lower Body Dressing (QC): 6 On/Off Footwear: 6 Toileting Hygiene (QC): 6 Toilet Transfer (QC): 6 Other Treatment Pt in recliner, used FWW to perform transfer into bathroom. Pt completed ADLS (showering, dressing, grooming, etc), IND with all tasks. Pt even able to don TedHose without assistance. Pt used FWW to perform functional mobility to therapy gym. OT Tx focused on increasing BUE strength and activity tolerance. Pt completed arm bike, x15 mins, 20 Watt resistance, 1 rest break. Pt then completed UE reaching task, completing nut/bolt block. Pt removed/placed nuts/bolts/washers on wooden block using BUEs, x16. Education OT Patient Education: Correct positioning, Energy conservation, Modified ADL techniques, Progress toward Goal/Update tx plan, Purpose of tx/functional activities, Rehab process Teaching Recipient: Patient Teaching Methods: Discussion Response to Teaching: Verbalize Understanding BIMS CAM BIMS Expression of Ideas and Wants: Without Difficulty Understanding Verbal Content: Understands Brief Interview/Mental Status: Yes IRF MESHA BIMS: IRF MESHA BIMS Response (Comments) Value Repitition of Three Words Three 3 Recalls Socks Yes, No Cue Required 2 Recalls Blue Yes, No Cue Required 2 Recalls Bed Yes, No Cue Required 2 Year Correct 3 Month Accurate Within 5 Days 2 Day Correct 1 Total 15 Should Staff Asses. Mental St.: No CAM Mental Status Change/Baseline: 0 Inattention: 0 Disorganized thinkin Altered level of consciousness: 0 OT Short Term Goals Short Term Goals Time Frame: Oct 24, 2022 Shower/bathe self: 5 Lower body dressin OT Mcfp Goals Mcfp Goals Time Frame: Oct 31, 2022 Acute change in mental status: 0 Inattention: 0 Disorganized thinkin Altered level of consciousness: 0 Eating (QC): 6 Oral Hygiene (QC): 6 Toileting Hygiene (QC): 6 Shower/Bathe Self (QC): 6 Upper Body Dressing (QC): 6 Lower Body Dressing (QC): 6 On/Off Footwear (QC): 6 Additional Goals: 1-Demonstrate ADL Tasks, 2-Verbalize Understanding, 3- ImproveStrength/Tony 1=Demonstrate adherence to instructed precautions during ADL tasks. 2=Patient will verbalize/demonstrate understanding of assistive devices/modifications for ADL. 3=Patient will improve strength/tolerance for activity to enable patient to perform ADL's. OT Education/Plan Problem List/Assessment Assessment: Decreased Activ Tolerance, Decreased UE Strength, Impaired I ADL's Discharge Recommendations Plan/Recommendations: Continue POC Treatment Plan/Plan of Care Patient would benefit from OT for education, treatment and training to promote independence in ADL's, mobility, safety and/or upper extremity function for ADL's. Plan of Care: ADL Retraining, Functional Mobility, Group Exercise/Act as Ind, UE Funct Exercise/Act Treatment Duration: Oct 31, 2022 Frequency: At least 5 of 7 days/Wk (IRF) Estimated Hrs Per Day: 1.5 hours per day Agreement: Yes Rehab Potential: Fair Time Start Time: 09:15 Stop Time: 10:45 DATE: Oct 21, 2022 Total Time Billed (hr/min): 90 Billed Treatment Time 1, ADL 4 (60'), EX (15'), FA (15') SARAH GAMBOA OT Oct 21, 2022 10:14
--- NOTE | 2022-10-21 11:45 | Diagnostic Imaging Report ---
EXAMINATION: Chest 1 view HISTORY: Cough. COMPARISON: 10/12/2022. 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 There are mild interstitial opacities within the left lower lung. No pneumothorax. Trace left pleural effusion. Degenerative changes of the thoracic spine. Osseous structures are otherwise intact. Chronic right rib deformity. Endotracheal tube and enteric catheter have been removed. IMPRESSION: 1. Mild interstitial opacities within the left lower lung which could represent atelectasis, pulmonary edema, or pneumonia. Dictated by: Dictated on workstation # [id number]
--- NOTE | 2022-10-21 12:11 | Physical Therapy Daily Note ---
PT Daily Note-Current Subjective Pt sitting in recliner upon arrival. Pt agrees to PT but need to finish putting personal Insulin Pump together before taking morning meds at start of tx. Pain Location: No Pain Reported Section J - Health Conditions 1. Rarely or not at all 2. Occasionally 3. Frequently 4. Almost constantly 8. Unable to answer Pain Effect on Sleep: 1 Pain Interference with Therapy: 1 Pain Interference w/Day-to-Day: 1 Mental Status Patient Orientation: Person, Place, Time, Situation Attachments: Other-See Comments (Insulin Pump) Transfers SCALE: Activities may be completed with or without assistive devices. 7-Grcxjtttdx-jsudwbv completes the activity by him/herself with no assistance from a helper. 5-Set-up or Clean-up Assistance-helper sets up or cleans up; patient completes activity. [place] assists only prior to or following the activity. 4-Supervision or Touching Assistance-helper provides verbal cues and/or touching/steadying and/or contact guard assistance as patient completes activity. Assistance may be provided throughout the activity or intermittently. 3-Partial/Moderate Assistance-helper does LESS THAN HALF the effort. [place] lifts, holds or supports trunk or limbs, but provides less than half the effort. 2-Substantial/Maximal Assistance-helper does MORE THAN HALF the effort. [place] lifts or holds trunk or limbs and provides more than half the effort. 8-Einpfhwbl-wqrony does ALL the effort. Patient does none of the effort to complete the activity. Or, the assistance of 2 or more helpers is required for the patient to complete the activity. If activity was not attempted, code reason: 7-Patient Refused. 9-Not Applicable-not attempted and the patient did not perform the activity before the current illness, exacerbation or injury. 10-Not Attempted due to Environmental Limitations-(lack of equipment, weather restraints, etc.). 88-Not Attempted due to Medical Conditions or Safety Concerns. Sit to Stand (QC): 6 Toilet Transfer (QC): 6 Weight Bearing Full Weight Bearing Full Weight Bearing Gait Training Does the Patient Walk?: Yes Distance: 150' x2 Walk 10 feet (QC): 5 Walk 50 ft with 2 Turns(QC): 5 Walk 150 ft (QC): 5 Gait Assistive Device: FWW Wheelchair Training Does the Pt Use a Wheelchair?: No Exercises Supine Ex: Rolling Seated Therapy Exercises: Sit to stand Treatments Pt completes putting together Insulin Pump then uses BR before amb in hallway. Pt completes practices on bed mobility/bed TF using FWW as bed cane. Pt amb back to room before resting in recliner. All needs met, call light in hand. Assessment Current Status: Good Progress Pt has improved and can perform bed mobility, transfers and amb well now and is ready for d/c on . PT Stage Electrician Goals Care Home Goals PT Stage Electrician Goals Time Frame: Oct 30, 2022 Roll Left & Right (QC): 6 Sit to Lying (QC): 6 Lying-Sitting on Side/Bed(QC): 6 Sit to Stand (QC): 6 Chair/Rwe-rj-Edqkz Xfer(QC): 6 Toilet Transfer (QC): 6 Car Transfer (QC): 6 Does the Patient Walk: Yes Walk 10 feet (QC): 6 Walk 50ft with 2 Turns (QC): 6 Walk 150 ft (QC): 6 Walking 10ft on Uneven Surface: 6 1 Step (curb) (QC): 4 (SBA) 4 Steps (QC): 4 (SBA) 12 Steps (QC): 4 (SBA) Picking up an Object (QC): 6 Wheel 50 feet with 2 turns (QC: 9 Wheel 150 feet: 9 PT Plan Treatment/Plan Treatment Plan: Continue Plan of Care Treatment Plan: Bed Mobility, Education, Functional Activity Tony, Functional Strength, Group Therapy, Gait, Safety, Therapeutic Exercise, Transfers Treatment Duration: Oct 30, 2022 Frequency: At least 5 of 7 days/Wk (IRF) Estimated Hrs Per Day: 1.5 hours per day Patient and/or Family Agrees t: Yes Safety Risks/Education Patient Education: Transfer Techniques, Correct Positioning Teaching Recipient: Patient Teaching Methods: Discussion Response to Teaching: Verbalize Understanding Time Time In: 800 Time Out: 900 DATE: Oct 21, 2022 Total Billed Treatment Time: 60 Total Billed Treatment 1, GT (20m), FA x2 (25m) & EX (15m) KIERAN AGUERO ENGRAVER LETTER Oct 21, 2022 12:11
[2022-10-21] MEDS: CHLORASEPTIC SPRAY 177 ML LIQUID MC PRN ×3 (14:45→20:22)
--- NOTE | 2022-10-21 15:33 | Therapy Group Daily Note ---
Therapy Daily Group Note Patient Education Topic Home Safety Session Ratio (pt:therapist): 2:1 Goal of Session: Home Safety Strategies, Use of Adaptive Equipment Goal Met for this Session: Yes Pt Benefit of Group: Contributions to Others, F/U Use of Strategies @Home, Increased Functional Safety, Increased Functional Strength, Improved Cognition, Recognition of Peers, Socialization Other/Notes Pt ambulated using FWW to OT/PT group. Group consisted of introductions (name, place living, favorite food), socialization and education on kitchen mobility/adaptive equipment. Pt introduced self appropriately and actively listened to peers. Pt was able to discuss own strategies and stories of kitchen ideas or strategy for safe mobility. Pt acknowledged understanding of strategies therapy staff was educating on. After session, pt sitting in recliner with call light/phone in reach. Start Time: 13:00 Stop Time: 14:15 Total Billed Treatment Time: 75 Total Billed Treatment 1, KIERAN TOBIN REPORTS DEVELOPER Oct 21, 2022 15:33
[2022-10-21 20:14] VITALS: BP 124/69
[2022-10-21] MEDS: TERAZOSIN 1 MG CAP (HYTRIN) PO SCH (20:21)
[2022-10-21] MEDS: ROSUVASTATIN 20 MG (CRESTOR) TABLET PO SCH (20:21)
[2022-10-21] MEDS: NORTRIPTYLINE 25 MG (PAMELOR) CAP PO SCH (20:21)
[2022-10-22] MEDS: LEVOTHYROXINE 50 MCG (LEVOTHROID) TAB PO SCH (07:02)
[2022-10-22] MEDS: PRENATAL VITAMIN 1 EA TAB PO SCH (07:02)
[2022-10-22] MEDS: FERROUS SULF 325 MG (IRON) TAB PO SCH (07:03)
[2022-10-22] MEDS: RT--FLUTICASONE/SALMETEROL 232-14 (AIRDUO RespiCLICK) IH SCH ×2 (07:08→23:34)
[2022-10-22] MEDS: RT-BUDESONIDE NEBS 0.5 MG/2ML (PULMICORT) AMP IH SCH ×2 (07:08→23:34)
--- NOTE | 2022-10-22 07:25 | PM&R Progress Note ---
Subjective HPI/CC On Admission Date Seen by Provider: Oct 22, 2022 Time Seen by Provider: 10:00 Subjective/Events-last exam 10/22/2022: Ready for DC tomorrow No new issues Ready to go home 10/21/2022: No major events Sore throat "from intubation" to throat spray will be ordered Patient otherwise doing well No falls 10/20/2022: No major events Improved overall Weakness is improved Left eye is improved 10/19/2022: No major issues Left eye feels like it is scratched so will initiate saline flushes Sugars are ok No pain reported 10/18/2022: Doing well Reviewed labs of B12 and Iron and he just started taking his home iron now so no changes needed Sugars good No falls Pain controlled from chest compressions 10/17/2022: Had a good night Sugars are monitored closely Creat 1.3 Hgb 9.9 ordered iron and B12 Daughter at bedside Pain controlled Low albumin Noticed how weak he really was during his activities today Review of Systems General: Fatigue, Malaise Objective Exam Vital Signs Vital Signs Date Time Temp Pulse Resp B/P (MAP) Pulse Ox O2 Delivery O2 Flow Rate FiO2 10/22/22 20:19 Room Air 10/22/22 19:37 36.5 85 18 103/51 (68) 98 10/21/22 21:51 2.00 10/20/22 21:18 21 Capillary Refill : General Appearance: No Apparent Distress, WD/WN, Chronically ill HEENT: PERRL/EOMI, Normal ENT Inspection, Pharynx Normal Neck: Full Range of Motion, Normal Inspection, Non Tender, Supple, Carotid Bruit Respiratory: Chest Non Tender, Lungs Clear, Normal Breath Sounds, No Accessory Muscle Use, No Respiratory Distress Cardiovascular: Regular Rate, Rhythm, No Edema, No Gallop, No JVD, No Murmur, N ormal Peripheral Pulses Gastrointestinal: Normal Bowel Sounds, No Organomegaly, No Pulsatile Mass, Non Tender, Soft Back: Normal Inspection, No CVA Tenderness, No Vertebral Tenderness Extremity: Normal Capillary Refill, Normal Inspection, Normal Range of Motion, Non Tender, No Calf Tenderness, No Pedal Edema Neurologic/Psychiatric: Alert, Oriented x3, No Motor/Sensory Deficits, mold setter II- XII Norm as Tested, Abnormal Gait, Depressed Affect, Motor Weakness (generalized) Skin: Normal Color, Warm/Dry Lymphatic: No Adenopathy Results/Procedures Lab Patient resulted labs reviewed. FIM Transfers Therapy Code Descriptions/Definitions Functional [place] Measure: 0=Not Assessed/NA 4=Minimal Assistance 1=Total Assistance 5=Supervision or Setup 2=Maximal Assistance 6=Modified [place] 3=Moderate Assistance 7=Complete IndependenceSCALE: Activities may be completed with or without assistive devices. 6-Krfawcdjjz-gtfpvte completes the activity by him/herself with no assistance from a helper. 5-Set-up or Clean-up Assistance-helper sets up or cleans up; patient completes activity. [place] assists only prior to or following the activity. 4-Supervision or Touching Assistance-helper provides verbal cues and/or touching/steadying and/or contact guard assistance as patient completes activity. Assistance may be provided throughout the activity or intermittently. 3-Partial/Moderate Assistance-helper does LESS THAN HALF the effort. [place] lifts, holds or supports trunk or limbs, but provides less than half the effort. 2-Substantial/Maximal Assistance-helper does MORE THAN HALF the effort. [place] lifts or holds trunk or limbs and provides more than half the effort. 7-Zyroubcrw-nsujrm does ALL the effort. Patient does none of the effort to complete the activity. Or, the assistance of 2 or more helpers is required for the patient to complete the activity. If activity was not attempted, code reason: 7-Patient Refused. 9-Not Applicable-not attempted and the patient did not perform the activity before the current illness, exacerbation or injury. 10-Not Attempted due to Environmental Limitations-(lack of equipment, weather restraints, etc.). 88-Not Attempted due to Medical Conditions or Safety Concerns. Roll Left to Right (QC): 4 Sit to Lying (QC): 5 Sit to Stand (QC): 6 Chair/Cul-ly-Ulyuc Xfer(QC): 4 Car Transfer (QC): 3 Gait Training Does the Patient Walk?: Yes Distance: 150' x2 Walk 10 feet (QC): 5 Walk 50 ft with 2 Turns(QC): 5 Walk 150 ft (QC): 5 Walking 10ft/uneven surface-QC: 4 Gait Persons Needed: 1 Gait Assistive Device: FWW Wheelchair Training Does the Pt Use a Wheelchair?: No Wheel 50 ft with 2 turns (QC): 9 Wheel 150 ft (QC): 9 Stair Training #of Steps: 4 1 Step (curb) (QC): 4 4 Steps (QC): 4 12 Steps (QC): 88 Balance Picking up an Object (QC): 4 (CGA using a healthcare administration internship) ADL-Treatment Eating (QC): 6 Oral Hygiene (QC): 6 Shower/Bathe Self (QC): 6 Upper Body Dressing (QC): 6 Lower Body Dressing (QC): 6 On/Off Footwear (QC): 6 Toileting Hygiene (QC): 6 Toilet Transfer (QC): 6 Assessment/Plan Assessment and Plan Assess & Plan/Chief Complaint Assessment: Debility following bradycardic cardiac arrest with hyperkalemia from DKA DM insulin pump dependent AF s/p Watchman procedure 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
[2022-10-22 07:42] VITALS: BP 96/49
[2022-10-22] MEDS: OMEGA 3 (FISH OIL) 1000 MG CAP PO SCH (08:08)
[2022-10-22] MEDS: PANTOPRAZOLE 40 MG (PROTONIX) TAB PO SCH (08:08)
[2022-10-22] MEDS: SENNA W/DOCUSATE (SENOKOT S) TABLET PO SCH (08:08)
[2022-10-22] MEDS: DOCUSATE SODIUM 100 MG (COLACE) CAP PO SCH ×2 (08:08→20:09)
[2022-10-22] MEDS: KCL 10 MEQ TAB (MICRO K) PO SCH ×3 (08:08→17:29)
[2022-10-22] MEDS: CLOPIDOGREL 75 MG (PLAVIX) TABLET PO SCH (08:09)
[2022-10-22] MEDS: HYDROcodone/APAP 5 MG/325 MG (LORTAB) TAB PO PRN (08:09)
[2022-10-22] MEDS: ARTIFICAL TEARS 0.4 ML UNIT DOSE (REFRESH PLUS) OU SCH ×4 (08:09→20:09)
[2022-10-22] MEDS: CHLORASEPTIC SPRAY 177 ML LIQUID MC PRN ×3 (08:10→18:45)
[2022-10-22] MEDS: TIMOLOL MALEATE 0.5% 5 ML (TIMOPTIC) BTL OS SCH ×2 (08:11→20:09)
[2022-10-22] MEDS: DOFETILIDE 125 MCG (TIKOSYN) CAPSULE PO SCH ×2 (08:17→20:08)
[2022-10-22] MEDS: polyethylene glycoL POWDER 17 GM (MIRALAX) PACK PO SCH (08:17)
--- NOTE | 2022-10-22 08:57 | Occupational Ther Daily Note ---
OT Current Status-Daily Note Subjective Pt in recliner, agreeable to OT Tx. ADL-Treatment Therapy Code Descriptions/Definitions Functional [place] Measure: 0=Not Assessed/NA 4=Minimal Assistance 1=Total Assistance 5=Supervision or Setup 2=Maximal Assistance 6=Modified [place] 3=Moderate Assistance 7=Complete IndependenceSCALE: Activities may be completed with or without assistive devices. 8-Qzohjpnnzv-kkknjfa completes the activity by him/herself with no assistance from a helper. 5-Set-up or Clean-up Assistance-helper sets up or cleans up; patient completes activity. [place] assists only prior to or following the activity. 4-Supervision or Touching Assistance-helper provides verbal cues and/or touching/steadying and/or contact guard assistance as patient completes activity. Assistance may be provided throughout the activity or intermittently. 3-Partial/Moderate Assistance-helper does LESS THAN HALF the effort. [place] lifts, holds or supports trunk or limbs, but provides less than half the effort. 2-Substantial/Maximal Assistance-helper does MORE THAN HALF the effort. [place] lifts or holds trunk or limbs and provides more than half the effort. 9-Zmnrmaomb-ljbvzx does ALL the effort. Patient does none of the effort to compl ete the activity. Or, the assistance of 2 or more helpers is required for the patient to complete the activity. If activity was not attempted, code reason: 7-Patient Refused. 9-Not Applicable-not attempted and the patient did not perform the activity before the current illness, exacerbation or injury. 10-Not Attempted due to Environmental Limitations-(lack of equipment, weather restraints, etc.). 88-Not Attempted due to Medical Conditions or Safety Concerns. Eating (QC): 6 Oral Hygiene (QC): 6 Shower/Bathe Self (QC): 6 Upper Body Dressing (QC): 6 Lower Body Dressing (QC): 6 On/Off Footwear: 6 Toileting Hygiene (QC): 6 Toilet Transfer (QC): 6 Other Treatment Pt in recliner, used FWW to gather clothes from closet and transfer into bathroom. Pt completed showering, dressing, grooming tasks, and toileting independently. Pt then transferred to recliner with FWW. Education provided on donning jackets/button up shirts, pt demo'd ability to don by putting BUEs into arm holes, then overhead. Post tx, pt in recliner, call light in reach and all needs met. Education OT Patient Education: Correct positioning, Energy conservation, Modified ADL techniques, Progress toward Goal/Update tx plan, Purpose of tx/functional activities, Rehab process Teaching Recipient: Patient Teaching Methods: Discussion Response to Teaching: Verbalize Understanding OT Short Term Goals Short Term Goals Time Frame: Oct 24, 2022 Shower/bathe self: 5 Lower body dressin OT [facility] Goals Hearing And Speech Assistant Goals Time Frame: Oct 31, 2022 Acute change in mental status: 0 Inattention: 0 Disorganized thinkin Altered level of consciousness: 0 Eating (QC): 6 Oral Hygiene (QC): 6 Toileting Hygiene (QC): 6 Shower/Bathe Self (QC): 6 Upper Body Dressing (QC): 6 Lower Body Dressing (QC): 6 On/Off Footwear (QC): 6 Additional Goals: 1-Demonstrate ADL Tasks, 2-Verbalize Understanding, 3- ImproveStrength/Tony 1=Demonstrate adherence to instructed precautions during ADL tasks. 2=Patient will verbalize/demonstrate understanding of assistive devices/modifications for ADL. 3=Patient will improve strength/tolerance for activity to enable patient to perform ADL's. OT Education/Plan Problem List/Assessment Assessment: Decreased Activ Tolerance Discharge Recommendations Plan/Recommendations: Continue POC Treatment Plan/Plan of Care Patient would benefit from OT for education, treatment and training to promote independence in ADL's, mobility, safety and/or upper extremity function for ADL's. Plan of Care: ADL Retraining, Functional Mobility, Group Exercise/Act as Ind, UE Funct Exercise/Act Treatment Duration: Oct 31, 2022 Frequency: At least 5 of 7 days/Wk (IRF) Estimated Hrs Per Day: 1.5 hours per day Agreement: Yes Rehab Potential: Fair Time Start Time: 08:15 Stop Time: 09:00 DATE: Oct 22, 2022 Total Time Billed (hr/min): 45 Billed Treatment Time 1, ADL 3 SARAH GAMBOA OT Oct 22, 2022 08:57
[2022-10-22 09:09] VITALS: BP 84/45
[2022-10-22] MEDS: ENALAPRIL 5 MG (VASOTEC) TAB PO SCH (09:14)
[2022-10-22] MEDS: MOMETASONE 0.1% CREAM 15 GM (ELOCON) TOP SCH ×2 (09:14→20:17)
[2022-10-22] MEDS: TRIAMCINOLONE 0.1% CR (KENALOG) 15 GM TUBE TOP SCH ×2 (09:15→20:17)
[2022-10-22] MEDS: DICLOFENAC 1% GEL 100 GM (VOLTAREN) TUBE TP SCH ×4 (09:15→20:18)
[2022-10-22] MEDS: guaiFENesin/CODEINE (ROBITUSSIN AC) 10ML UDC PO PRN (10:20)
[2022-10-22 10:30] VITALS: BP 100/62
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
[2022-10-22] MEDS: ACETAMINOPHEN 500 MG TAB (TYLENOL) PO PRN (12:28)
[2022-10-22] MEDS ORDERED: BRIMON0.2 OS (15:42)
[2022-10-22] MEDS ORDERED: FERR324T4 PO (15:42)
[2022-10-22] MEDS ORDERED: ESCI-2 PO (15:42)
[2022-10-22] MEDS ORDERED: SPIR25TA5 PO (15:42)
[2022-10-22] MEDS ORDERED: FURO20TA4 PO (15:42)
[2022-10-22] MEDS ORDERED: TRAM50TA3 PO (15:42)
[2022-10-22] MEDS ORDERED: DILT-8 PO (15:42)
[2022-10-22 19:37] VITALS: BP 103/51
[2022-10-22] MEDS: TERAZOSIN 1 MG CAP (HYTRIN) PO SCH (20:06)
[2022-10-22] MEDS: NORTRIPTYLINE 25 MG (PAMELOR) CAP PO SCH (20:08)
[2022-10-22] MEDS: ROSUVASTATIN 20 MG (CRESTOR) TABLET PO SCH (20:09)
[2022-10-23] MEDS: CHLORASEPTIC SPRAY 177 ML LIQUID MC PRN ×2 (03:21→08:14)
[2022-10-23] MEDS ORDERED: CARV3.122 PO (05:20)
--- NOTE | 2022-10-23 05:21 | D/C HH Face to Face Order ---
D/C Face to Face Orders Reconcile Patient Problems Problems Reviewed?: Yes Instructions for Patient Via [facility], Patient Instructions/FollowUp: PCP 1 week Physician to follow Patient: PCP Discharge Diet for Home: No Restrictions Patient Problems: Cardiac arrest Patient Data-Allergies,Ht & Wt Patient Allergies: Coded Allergies: No Known Drug Allergies (Unverified , 01/02/15) Height (Feet): 5 Height (Inches): 8.00 Weight (Pounds): 258 Weight (Ounces): 0.0 Home Health Need/Face to Face Date of Face to Face: Oct 23, 2022 Clinical Findings: Generalized weakness and fatigue, Instability, Muscle weakness I have seen Pt xdxw-in-impa: Yes Discharged To: Home Diagnosis/Conditions: Cardiac arrest Patient is Homebound due to: [place] fall risk due to instabilty, Muscle weakness Homebound Status Due to the above stated illness, injury or surgical procedure (medical condition or diagnosis) and associated clinical findings, the patient is homebound because of his/her inability to leave home except with aid of a supportive device and/or person AND leaving the home requires a considerable and taxing effort or is medically contraindicated. Pt req the following assistanc: Walker Home Health Nursing Orders Home Health Services Order: Nursing Services, In Shop Service Technician-Evaluate & Treat, Physical Therapy-Evaluate & Treat Certify Stmt I certify that this patient is under my care and that I, a nurse practitioner or a physician; a study assistant working with me, had a face to face encounter that - meets the physician face to face encounter requirements with this patient as dated. TAM BREEN DO Oct 23, 2022 05:21
--- NOTE | 2022-10-23 05:22 | Discharge Summary ---
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 HTN HLP ALEXYS on BiPAP Nocturnal hypoxia Anemia Chest pain from chest compressions during cardiac arrest Plan: PT OT Aggressive rehab Monitor pain insulin pump 10/17/2022: Monitor closely Participation is good 10/18/2022: Monitor closely Iron supplement 10/19/2022: Monitor closely Left eye will be monitored 10/20/2022: Supportive care to continue Improving 10/21/2022: Throat spray 10/22/2022: Hold BP meds for less than SBP 120 (1) Cardiac arrest Discharge Summary Discharge Physical Examination Allergies: Coded Allergies: No Known Drug Allergies (Unverified , 01/02/15) Vitals & I&Os Vital Signs Date Time Temp Pulse Resp B/P (MAP) Pulse Ox O2 Delivery O2 Flow Rate FiO2 10/23/22 11:48 36.8 92 16 115/57 90 Room Air 2.00 10/20/22 21:18 21 General Appearance: Alert, Oriented X3, Cooperative Respiratory: Clear to Auscultation Cardiovascular: Regular Rate Psych/Mental Status: Mental Status NL Hospital Course Was the Problem List Reviewed?: Yes Uneventful course after transfer from [facility] after lifeflighted from our ER s/p cardiac arrest and ROSC after 2 minutes of CPR and meds. Cardiology changed his meds and extubated him and he was able to participate in all therapies and regain most of his lost strength and labs remained stable as did his vitals and he was deemed stable for DC. Labs (last 24 hrs) Laboratory Tests 10/17/22 05:41: Iron Level 39, Vitamin B12 Level 1153H 10/17/22 05:42: White Blood Count 7.4, Red Blood Count 3.52L, Hemoglobin 9.9L, Hematocrit 31L, Mean Corpuscular Volume 87, Mean Corpuscular Hemoglobin 28, Mean Corpuscular Hemoglobin Concent 33, Red Cell Distribution Width 13.4, Platelet Count 172, Mean Platelet Volume 9.2, Immature Granulocyte % (Auto) 1, Neutrophils (%) (Auto) 78H, Lymphocytes (%) (Auto) 11L, Monocytes (%) (Auto) 10, Eosinophils (%) (Auto) 0, Basophils (%) (Auto) 0, Neutrophils # (Auto) 5.8, Lymphocytes # (Auto) 0.8L, Monocytes # (Auto) 0.8, Eosinophils # (Auto) 0.0, Basophils # (Auto) 0.0, Immature Granulocyte # (Auto) 0.1, Sodium Level 141, Potassium Level 3.2L, Chloride Level 103, Carbon Dioxide Level 27, Anion Gap 11, Blood Urea Nitrogen 25H, Creatinine 1.33H, Estimat Glomerular Filtration Rate 54, BUN/Creatinine Ratio 19, Glucose Level 133H, Calcium Level 9.2, Corrected Calcium 10.4H, Total Bilirubin 0.4, Aspartate Amino Transf (AST/SGOT) 28, Alanine Aminotransferase (ALT/SGPT) 30, Alkaline Phosphatase 70, Total Protein 5.3L, Albumin 2.5L 10/17/22 11:12: Glucometer 191H 10/18/22 10:57: Glucometer 172H 10/19/22 11:06: Glucometer 156H 10/20/22 05:58: White Blood Count 6.7, Red Blood Count 3.40L, Hemoglobin 9.7L, Hematocrit 30L, Mean Corpuscular Volume 87, Mean Corpuscular Hemoglobin 29, Mean Corpuscular Hemoglobin Concent 33, Red Cell Distribution Width 13.5, Platelet Count 256, Mean Platelet Volume 9.4, Immature Granulocyte % (Auto) 6, Neutrophils (%) (Auto) 62, Lymphocytes (%) (Auto) 13, Monocytes (%) (Auto) 18H, Eosinophils (%) (Auto) 0, Basophils (%) (Auto) 1, Neutrophils # (Auto) 4.2, Lymphocytes # (Auto) 0.8L, Monocytes # (Auto) 1.2H, Eosinophils # (Auto) 0.0, Basophils # (Auto) 0.0, Immature Granulocyte # (Auto) 0.4H, Sodium Level 139, Potassium Level 4.1, Chloride Level 105, Carbon Dioxide Level 25, Anion Gap 9, Blood Urea Nitrogen 19H, Creatinine 1.24, Estimat Glomerular Filtration Rate 59, BUN/Creatinine Ratio 15, Glucose Level 137H, Calcium Level 9.1, Corrected Calcium 10.3H, Total Bilirubin 0.3, Aspartate Amino Transf (AST/SGOT) 33, Alanine Aminotransferase (ALT/SGPT) 34, Alkaline Phosphatase 76, Total Protein 5.7L, Albumin 2.5L, Smear Scan YES Pending Labs Laboratory Tests 10/17/22 05:41: Iron Level 39, Vitamin B12 Level 1153 10/17/22 05:42: White Blood Count 7.4, Red Blood Count 3.52, Hemoglobin 9.9, Hematocrit 31, Mean Corpuscular Volume 87, Mean Corpuscular Hemoglobin 28, Mean Corpuscular Hemoglobin Concent 33, Red Cell Distribution Width 13.4, Platelet Count 172, Mean Platelet Volume 9.2, Immature Granulocyte % (Auto) 1, Neutrophils (%) (Auto) 78, Lymphocytes (%) (Auto) 11, Monocytes (%) (Auto) 10, Eosinophils (%) (Auto) 0, Basophils (%) (Auto) 0, Neutrophils # (Auto) 5.8, Lymphocytes # (Auto) 0.8, Monocytes # (Auto) 0.8, Eosinophils # (Auto) 0.0, Basophils # (Auto) 0.0, Immature Granulocyte # (Auto) 0.1, Sodium Level 141, Potassium Level 3.2, Chloride Level 103, Carbon Dioxide Level 27, Anion Gap 11, Blood Urea Nitrogen 25, Creatinine 1.33, Estimat Glomerular Filtration Rate 54, BUN/Creatinine Ratio 19, Glucose Level 133, Calcium Level 9.2, Corrected Calcium 10.4, Total Bilirubin 0.4, Aspartate Amino Transf (AST/SGOT) 28, Alanine Aminotransferase (ALT/SGPT) 30, Alkaline Phosphatase 70, Total Protein 5.3, Albumin 2.5 10/17/22 11:12: Glucometer 191 10/18/22 10:57: Glucometer 172 10/19/22 11:06: Glucometer 156 10/20/22 05:58: White Blood Count 6.7, Red Blood Count 3.40, Hemoglobin 9.7, Hematocrit 30, Mean Corpuscular Volume 87, Mean Corpuscular Hemoglobin 29, Mean Corpuscular Hemoglobin Concent 33, Red Cell Distribution Width 13.5, Platelet Count 256, Mean Platelet Volume 9.4, Immature Granulocyte % (Auto) 6, Neutrophils (%) (Auto) 62, Lymphocytes (%) (Auto) 13, Monocytes (%) (Auto) 18, Eosinophils (%) (Auto) 0, Basophils (%) (Auto) 1, Neutrophils # (Auto) 4.2, Lymphocytes # (Auto) 0.8, Monocytes # (Auto) 1.2, Eosinophils # (Auto) 0.0, Basophils # (Auto) 0.0, Immature Granulocyte # (Auto) 0.4, Sodium Level 139, Potassium Level 4.1, Chloride Level 105, Carbon Dioxide Level 25, Anion Gap 9, Blood Urea Nitrogen 19, Creatinine 1.24, Estimat Glomerular Filtration Rate 59, BUN/Creatinine Ratio 15, Glucose Level 137, Calcium Level 9.1, Corrected Calcium 10.3, Total Bilirubin 0.3, Aspartate Amino Transf (AST/SGOT) 33, Alanine Aminotransferase (ALT/SGPT) 34, Alkaline Phosphatase 76, Total Protein 5.7, Albumin 2.5, Smear Scan YES Discharge Home Medications: Active Scripts Active Carvedilol 3.125 Mg Tablet 3.125 Mg PO Q12H Reported Furosemide 20 Mg Tablet 30 Mg PO Q48H TAKES 1 & (20MG) TABS ALTERNATES 20MG AND 30MG DAILY Brimonidine Tartrate 0.2 % Btl 1 Drops OS BID Tramadol HCl 50 Mg Tablet 50 Mg PO BID PRN Escitalopram Oxalate 10 Mg Tablet 5 Mg PO HS TAKES OF A 10NG Ferrous Sulfate 324 Mg (65 Mg Iron) Tablet.dr 324 Mg PO DAILY Terazosin HCl 1 Mg Capsule 1 Mg PO 2000 Sodium Fluoride (Fluoride (Sodium)) 1.1 % Sodium Fluoride Gel..gram. 1 Applic DT UD Simethicone 125 Mg Tab.chew 125 Mg PO UD PRN Sildenafil Citrate 50 Mg Tablet 50 Mg PO Q48H Senna S Tablet (Sennosides/Docusate Sodium) 8.6 Mg-50 Mg Tablet 1 Each PO DAILY Rosuvastatin Calcium 40 Mg Tablet 20 Mg PO HS TAKES OF A 40MG TAB Multi Tablet (Pnv No.122/Iron/Folic Acid) 27 Mg Iron-800 Mcg Tablet 1 Each PO DAILY Potassium Chloride 10 Meq Tab.er.prt 10 Meq PO DAILY Miralax (Polyethylene Glycol 3350) 17 Gram Powd.pack 17 Gm PO DAILY Pantoprazole Sodium 40 Mg Tablet.dr 40 Mg PO DAILY Irvine-3 2100 Softgel (Irvine-3/Dha/Epa/Dpa/Fish Oil) 1,050-1,200 Capsule 1 Each PO DAILY Nortriptyline HCl 75 Mg Capsule 150 Mg PO 2000 Nitroglycerin 0.4 Mg Tab.subl 0.4 Mg SL UD PRN Levothyroxine Sodium 50 Mcg Tablet 50 Mcg PO DAILY Novolog (Insulin Aspart) 100 Unit/Ml Susp Unit SQ UD INFUSE 150 UNITS DAILY VIA PUNP Glucose (Dextrose) 4 Gram Tab.chew 8 Gm PO UD PRN Glucagen (Glucagon,Human Recombinant) 1 Mg Vial 1 Mg IJ UD PRN Furosemide 20 Mg Tablet 20 Mg PO Q48H ALTERNATES 20MG AND 30MG DAILY Advair 100-50 Diskus (Fluticasone/Salmeterol) 100 Mcg-50 Mcg/Dose Blst.w.dev 1 Each IH DAILY Famotidine 20 Mg Tablet 20 Mg PO BID Enalapril Maleate 5 Mg Tablet 5 Mg PO DAILY Dofetilide 125 Mcg Capsule 125 Mcg PO Q12H Docusate Sodium 100 Mg Capsule 100 Mg PO HS PRN Diclofenac Sodium 1 % Gel..gram. 2 Gm TP QID PRN APPLY TO SHOULDER Desonide 0.05 % Cream..g. 1 Applic TP BID APPLICATION SITE NOT LISTED ON THE DISCHARGE ORDERS Clopidogrel (Clopidogrel Bisulfate) 75 Mg Tablet 75 Mg PO DAILY Biotene Oralbalance (Saliva Stimulant Comb. No.7) 42 Gm Gel..gram. 1 Applic MM UD PRN Tears Lubricant Eye Drop (Hypromellose) 0.5 % Drops 1 Drop OU QID Ventolin Hfa (Albuterol Sulfate) 1 Puff Puff 2 Puff INH Q6H PRN Tylenol Extra Strength (Acetaminophen) 500 Mg Tablet 500 Mg PO Q6H PRN [Neilmed Ped Rinse] 1 Ea NA BID Instructions to patient/family Please see electronic discharge instructions given to patient. Diagnosis/Problems Diagnosis/Problems (1) Cardiac arrest TAM BREEN DO Oct 23, 2022 05:21
[2022-10-23] MEDS: LEVOTHYROXINE 50 MCG (LEVOTHROID) TAB PO SCH (06:31)
[2022-10-23] MEDS: PRENATAL VITAMIN 1 EA TAB PO SCH (06:31)
[2022-10-23] MEDS: FERROUS SULF 325 MG (IRON) TAB PO SCH (06:31)
--- NOTE | 2022-10-23 07:24 | Therapy Group Daily Note ---
Therapy Daily Group Note Patient Education Topic Home Safety Exercises LE Seated Exercise, UE Exercise Session Ratio (pt:therapist): 4:1 Goal of Session: Home Safety Strategies, UE/LE Strengthing, Use of Adaptive Equipment Goal Met for this Session: Yes Pt Benefit of Group: Contributions to Others, F/U Use of Strategies @Home, Increased Functional Safety, Increased Functional Strength, Improved Cognition, Recognition of Peers, Socialization Other/Notes Pt ambulated using FWW to [facility] for OT/PT group. Group consisted of introductions (name, place living, life hack/trick), socialization, education on tips/tricks to make IADLs/ADLs easier and B UE/LE seated exercises. Pt introduced self appropriately and actively listened to peers. Pt acknowledged understanding of educational topic by giving own strategies and ideas. Pt able to complete UE/LE seated exercises without difficulty. After session, In recliner with call light/phone in reach. All needs met in room. Start Time: 13:00 Stop Time: 14:00 Total Billed Treatment Time: 60 Total Billed Treatment 1-GRP GABRIELLE JOSEPH Oct 23, 2022 07:24
[2022-10-23 07:50] VITALS: BP 115/57
[2022-10-23] MEDS: RT--FLUTICASONE/SALMETEROL 232-14 (AIRDUO RespiCLICK) IH SCH (07:50)
[2022-10-23] MEDS: RT-BUDESONIDE NEBS 0.5 MG/2ML (PULMICORT) AMP IH SCH (07:50)
--- NOTE | 2022-10-23 07:54 | Therapy Team Discharge Summary ---
Therapy Discharge Summary Discharge Recommendations Date of Discharge Physical Therapy Roll Left to Right (QC): 6 Sit to Lying (QC): 6 Lying to Sitting/Side of Bed(Q: 6 Sit to Stand (QC): 6 Chair/Zbg-gu-Xgxtx Xfer(QC): 6 Toilet Transfer (QC): 5 Car Transfer (QC): 6 Does the Patient Walk: Yes Mode of Locomotion: Walk Anticipated Mode of Locomotion: Walk Walk 10 feet (QC): 6 Walk 50 ft with 2 Turns(QC): 6 Walk 150 ft (QC): 6 Walking 10ft on uneven surface: 6 Distance: 200', 150'x3 Gait Assistive Device: FWW Does the Pt Use a Wheelchair: No Wheel 50 ft with 2 turns (QC): 9 Wheel 150 ft (QC): 9 #of Steps: 12 1 Step (curb) (QC): 6 4 Steps (QC): 6 12 Steps (QC): 6 Balance Sitting Static: Normal Balance Sitting Dynamic: Normal Balance-Standing Static: Fair Picking up an Object (QC): 6 Occupational Therapy Pt admitted to ARU s/p cardiac arrest and DKA. At [facility], pt was independent with ADLs and functional mobility, without AD. Upon initial evaluation, pt was independent with eating and footwear, required supervision with oral care, set up UE dressing and SBA showering, LE dressing and toileting. OT Tx focused on increasing BUE Strength and activity tolerance, and increasing safety and independence with ADLS and functional mobility. Pt made good progress towards goals, attaining all LTGs at IND level. OT recommendations include shower chair. Pt discharging home with family, d/c from OT. Decreased Activ Tolerance Eating (QC): 6 Oral Hygiene (QC): 6 Shower/Bathe Self (QC): 6 Upper Body Dressing (QC): 6 Lower Body Dressing (QC): 6 On/Off Footwear (QC): 6 Toileting Hygiene (QC): 6 PT Raw Sampler Goals Prison Goals PT Raw Sampler Goals Time Frame: Oct 30, 2022 Roll Left to Right (QC): 6 Sit to Lying (QC): 6 Lying-Sitting on Side/Bed(QC): 6 Sit to Stand (QC): 6 Chair/Sfl-jx-Ggaty Xfer(QC): 6 Toilet/Commode Transfer (QC): 6 Car Transfer (QC): 6 Does the Patient Walk: Yes Walk 10 feet (QC): 6 Walk 10ft-Uneven Surface(QC): 6 Walk 50ft with 2 Turns (QC): 6 Walk 150 ft (QC): 6 Wheel 50 feet with 2 turns (QC: 9 Wheel 150 feet: 9 1 Step (curb) (QC): 4 (SBA) 4 Steps (QC): 4 (SBA) 12 Steps (QC): 4 (SBA) Picking up an Object (QC): 6 OT Prison Goals Raw Sampler Goals Time Frame: Oct 31, 2022 Acute change in mental status: 0 Inattention: 0 Disorganized thinkin Altered level of consciousness: 0 Eating (QC): 6 (met) Oral Hygiene (QC): 6 (met) Toileting Hygiene (QC): 6 (met) Shower/Bathe Self (QC): 6 (met) Upper Body Dressing (QC): 6 (met) Lower Body Dressing (QC): 6 (met) On/Off Footwear (QC): 6 (met) Additional Goals: 1-Demonstrate ADL Tasks, 2-Verbalize Understanding, 3- ImproveStrength/Tony 1=Demonstrate adherence to instructed precautions during ADL tasks. 2=Patient will verbalize/demonstrate understanding of assistive devices/modifications for ADL. 3=Patient will improve strength/tolerance for activity to enable patient to perform ADL's. SARAH GAMBOA OT Oct 23, 2022 07:54
[2022-10-23] MEDS: guaiFENesin/CODEINE (ROBITUSSIN AC) 10ML UDC PO PRN (08:12)
[2022-10-23] MEDS: ARTIFICAL TEARS 0.4 ML UNIT DOSE (REFRESH PLUS) OU SCH (08:12)
[2022-10-23] MEDS: DOFETILIDE 125 MCG (TIKOSYN) CAPSULE PO SCH (08:27)
[2022-10-23] MEDS: SENNA W/DOCUSATE (SENOKOT S) TABLET PO SCH (09:29)
[2022-10-23] MEDS: KCL 10 MEQ TAB (MICRO K) PO SCH (09:29)
[2022-10-23] MEDS: PANTOPRAZOLE 40 MG (PROTONIX) TAB PO SCH (09:31)
[2022-10-23] MEDS: OMEGA 3 (FISH OIL) 1000 MG CAP PO SCH (09:31)
[2022-10-23] MEDS: DOCUSATE SODIUM 100 MG (COLACE) CAP PO SCH (09:31)
[2022-10-23] MEDS: ENALAPRIL 5 MG (VASOTEC) TAB PO SCH (09:31)
[2022-10-23] MEDS: CLOPIDOGREL 75 MG (PLAVIX) TABLET PO SCH (09:31)
[2022-10-23] MEDS: polyethylene glycoL POWDER 17 GM (MIRALAX) PACK PO SCH (09:32)
[2022-10-23] MEDS: TRIAMCINOLONE 0.1% CR (KENALOG) 15 GM TUBE TOP SCH (09:33)
[2022-10-23] MEDS: MOMETASONE 0.1% CREAM 15 GM (ELOCON) TOP SCH (09:33)
[2022-10-23] MEDS: DICLOFENAC 1% GEL 100 GM (VOLTAREN) TUBE TP SCH (09:33)
[2022-10-23] MEDS: TIMOLOL MALEATE 0.5% 5 ML (TIMOPTIC) BTL OS SCH (09:35)
[2022-10-23] MEDS: FUROSEMIDE 20 MG (LASIX) TAB PO SCH (09:42)
[2022-10-23] MEDS: SILDENAFIL 20 MG (REVATIO) TAB PO SCH (09:43)
[2022-10-23 11:48] VITALS: BP 115/57
--- NOTE | 2022-10-24 16:14 | Therapy Team Discharge Summary ---
Therapy Discharge Summary Discharge Recommendations Date of Discharge Oct 23, 2022 at 11:00 Physical Therapy Patient seen on ARU for skilled therapy services following [place]. At time of D/C, patient was (I) with bed mobility, transfers, gait using a FWW for at least 150'. A FWW was obtained for home and he plans to transition to a quad cane as he is able to tolerate at home. Supportive family to assist as needed. No safety concerns for this patient at D/C. Roll Left to Right (QC): 6 Sit to Lying (QC): 6 Lying to Sitting/Side of Bed(Q: 6 Sit to Stand (QC): 6 Chair/Ihe-fj-Vudld Xfer(QC): 6 Toilet Transfer (QC): 5 Car Transfer (QC): 6 Does the Patient Walk: Yes Mode of Locomotion: Walk Anticipated Mode of Locomotion: Walk Walk 10 feet (QC): 6 Walk 50 ft with 2 Turns(QC): 6 Walk 150 ft (QC): 6 Walking 10ft on uneven surface: 6 Distance: 200', 150'x3 Gait Assistive Device: FWW Does the Pt Use a Wheelchair: No Wheel 50 ft with 2 turns (QC): 9 Wheel 150 ft (QC): 9 #of Steps: 12 1 Step (curb) (QC): 6 4 Steps (QC): 6 12 Steps (QC): 6 Balance Sitting Static: Normal Balance Sitting Dynamic: Normal Balance-Standing Static: Fair Picking up an Object (QC): 6 Occupational Therapy Decreased Activ Tolerance Eating (QC): 6 Oral Hygiene (QC): 6 Shower/Bathe Self (QC): 6 Upper Body Dressing (QC): 6 Lower Body Dressing (QC): 6 On/Off Footwear (QC): 6 Toileting Hygiene (QC): 6 PT Nursing Home Goals Nursing Home Goals PT Reading Specialist Goals Time Frame: Oct 30, 2022 Roll Left to Right (QC): 6 Sit to Lying (QC): 6 Lying-Sitting on Side/Bed(QC): 6 Sit to Stand (QC): 6 Chair/Rts-vt-Kkvch Xfer(QC): 6 Toilet/Commode Transfer (QC): 6 Car Transfer (QC): 6 Does the Patient Walk: Yes Walk 10 feet (QC): 6 Walk 10ft-Uneven Surface(QC): 6 Walk 50ft with 2 Turns (QC): 6 Walk 150 ft (QC): 6 Wheel 50 feet with 2 turns (QC: 9 Wheel 150 feet: 9 1 Step (curb) (QC): 4 (SBA) 4 Steps (QC): 4 (SBA) 12 Steps (QC): 4 (SBA) Picking up an Object (QC): 6 OT Nursing Home Goals Reading Specialist Goals Time Frame: Oct 31, 2022 Acute change in mental status: 0 Inattention: 0 Disorganized thinkin Altered level of consciousness: 0 Eating (QC): 6 (met) Oral Hygiene (QC): 6 (met) Toileting Hygiene (QC): 6 (met) Shower/Bathe Self (QC): 6 (met) Upper Body Dressing (QC): 6 (met) Lower Body Dressing (QC): 6 (met) On/Off Footwear (QC): 6 (met) Additional Goals: 1-Demonstrate ADL Tasks, 2-Verbalize Understanding, 3-Im proveStrength/Tony 1=Demonstrate adherence to instructed precautions during ADL tasks. 2=Patient will verbalize/demonstrate understanding of assistive devices/modifications for ADL. 3=Patient will improve strength/tolerance for activity to enable patient to perform ADL's. Iliana Medrano PT Oct 24, 2022 16:14
== END 2022-10-23 11:00 | disposition home health service (06) | DRG 948 ==
PROVIDERS: ADMIT Internal Medicine; ATTEND Internal Medicine
DX: R53.81 Other malaise (principal); R53.1 Weakness; I48.91 Unspecified atrial fibrillation; R26.9 Unspecified abnormalities of gait and mobility; G47.33 Obstructive sleep apnea (adult) (pediatric); R09.02 Hypoxemia; I25.10 Atherosclerotic heart disease of native coronary artery without angina pectoris; E78.00 Pure hypercholesterolemia, unspecified; I12.9 Hypertensive chronic kidney disease with stage 1 through stage 4 chronic kidney disease, or unspecified chronic kidney disease; E10.22 Type 1 diabetes mellitus with diabetic chronic kidney disease; N18.30 Chronic kidney disease, stage 3 unspecified; M19.91 Primary osteoarthritis, unspecified site; F32.A Depression, unspecified; E03.9 Hypothyroidism, unspecified; H54.3 Unqualified visual loss, both eyes; H91.93 Unspecified hearing loss, bilateral; D63.1 Anemia in chronic kidney disease; E10.21 Type 1 diabetes mellitus with diabetic nephropathy; Z79.4 Long term (current) use of insulin; Z95.1 Presence of aortocoronary bypass graft; Z97.4 Presence of external hearing-aid; Z79.82 Long term (current) use of aspirin; Z79.899 Other long term (current) drug therapy; Z96.41 Presence of insulin pump (external) (internal)
CPT/HCPCS: 36415; 71045; 80053; 82607; 82947; 83540; 85025; 94640; 94660; 94760